=== PATIENT | female | born 1960 | race Caucasian/White ===

== ENCOUNTER 2016-04-14 19:37 | Emergency (ER) | payer BC ==
[~2016-04-14] VITALS: Ht 162.6 cm; Wt 99.8 kg
[2016-04-14] MEDS ORDERED: DICL75TA2 PO (19:53)
[2016-04-14] MEDS ORDERED: ROPI0.25 PO (19:53)
[2016-04-14] MEDS ORDERED: ATOR10TA66 PO (19:53)
[2016-04-14] MEDS ORDERED: TRIA1TAB3 PO (19:53)
[2016-04-14] MEDS ORDERED: AMLO10TA2 PO (19:53)
[2016-04-14] MEDS ORDERED: DULO60CA58 PO (19:53)
[2016-04-14] MEDS ORDERED: METF500T8 PO (19:53)
[2016-04-14] MEDS ORDERED: PREG100C PO (19:53)
[2016-04-14] MEDS ORDERED: TETANUS,DIPTH,PERTUSS P/F (BOOSTRIX) 0.5 ML VIAL IM ONE (20:00)
--- NOTE | 2016-04-14 20:02 | ED Upper Extremity ---
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 She was opening the new blade when she externally cut the distal left pointer finger tip. Tetanus is not up-to-date. This occurred just prior to arrival. Onset: just prior to arrival Severity: moderate Pain/Injury Location: left 2nd finger Method of Injury: unknown Modifying Factors: Worse With Movement Allergies and Home Medications Allergies Coded Allergies: No Known Drug Allergies (Unverified , 06/27/15) Home Medications Amlodipine Besylate 10 Mg Tablet #30 1 TAB PO UD (Reported) Atorvastatin Calcium 10 Mg Tablet #30 1 TAB PO UD (Reported) Diclofenac Sodium 75 Mg Tablet.dr #60 1 TAB PO UD (Reported) Duloxetine HCl 60 Mg Capsule.dr #30 1 CAP PO UD (Reported) Metformin HCl 500 Mg Tab.er.24h #60 1 TAB PO UD (Reported) Pregabalin 100 Mg Capsule #60 1 TAB PO UD (Reported) Ropinirole HCl 0.25 Mg Tablet #60 1 TAB PO UD (Reported) Triamterene/Hydrochlorothiazid 1 Each Tablet #30 1 TAB PO UD (Reported) Constitutional: see HPI EENTM: see HPI Respiratory: no symptoms reported Cardiovascular: no symptoms reported Genitourinary: no symptoms reported Musculoskeletal: see HPI Skin: see HPI Psychiatric/Neurological: No Symptoms Reported Past Hycdcaq-Npngsl-Duvmiy Hx Patient Social History Alcohol Use: Occasionally Uses Recreational Drug Use: No Smoking Status: Never a Smoker Recent Foreign Travel: No Contact w/Someone Who Travel: No Recent Infectious Disease Expo: No Recent Hopitalizations: No Physical Abuse Screen: No Sexual Abuse: No Immunizations Up To Date Tetanus Booster (TDap): Unknown Seasonal Allergies Seasonal Allergies: No Surgeries HX Surgeries: Yes (CARPEL TUNNEL) Respiratory Hx Respiratory Disorders: No Cardiovascular Hx Cardiac Disorders: Yes Cardiac Disorders: High Cholesterol, Hypertension Neurological Hx Neurological Disorders: No 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 System : No Hx 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 Disorders: No Genitourinary Hx Genitourinary Disorders: No Gastrointestinal Hx Gastrointestinal Disorders: No Musculoskeletal Hx Musculoskeletal Disorders: Yes (RESTLESS LEGS) Musculoskeletal Disorders: Fibromyalgia Endocrine Hx Endocrine Disorders: Yes Endocrine Disorders: Diabetes, Non-Insulin dep HEENT HX ENT Disorders: No Cancer Hx Cancer: No Psychosocial Hx Psychiatric Problems: No Integumentary HX Skin/Integumentary Disorder: No Blood Transfusions Hx Blood Disorders: No Physical Exam Vital Signs Vital Sign - Last 12Hours 04/14/16 19:53 Temp 97.1 Pulse 73 Resp 18 B/P 147/70 Pulse Ox 97 O2 Delivery Room Air Capillary Refill : Less Than 3 Seconds General Appearance: WD/WN no apparent distress HEENT: PERRL/EOMI normal ENT inspection Neck: non-tender full range of motion Respiratory: no respiratory distress no accessory muscle use Shoulder: normal inspection non-tender Elbow/Forearm: normal inspection, non-tender, Left Wrist: Yes normal inspection, Yes non-tender Hand: Left, laceration (superficial skin avulsion with active bleeding that is easily controlled to the left fingertip) Neurologic/Psychiatric: alert normal mood/affect oriented x 3 Skin: normal color warm/dry Laceration Repair : Wound Location: Upper Extremities Wound Length (cm): 0.5 Other Closure Supply: Wound Adhesive Progress/Results/Core Measures Results/Orders My Orders Orders-NADIRA SINGH APRN Dipht,Pertuss(Acell),Tet Adult (Boostrix (04/14/16 20:00) Vital Signs/I&O Vital Sign - Last 12Hours 04/14/16 19:53 Temp 97.1 Pulse 73 Resp 18 B/P 147/70 Pulse Ox 97 O2 Delivery Room Air Blood Pressure Mean: 95 Departure Impression Impression: Primary Impression: Skin avulsion Disposition: 01 HOME, SELF-CARE Condition: Stable Departure-Patient Inst. Decision time for Depature: 20:01 Referrals: LINN GRANT DO (PCP/Family) Primary Care Physician Patient Instructions: SKIN AVULSION Add. Discharge Instructions: 1. Keep this clean dry and covered tonight. Strength or you may wash gently. Do not put any lotion or petroleum-based products like Vaseline or Neosporin on this is that will dissolve the glue. Keep it covered with a Band-Aid while at work. The glue will fALL off on its own in 3-5 days. All discharge instructions reviewed with patient and/or family. Voiced understanding. NADIRA SINGH APRN Apr 14, 2016 20:02
[2016-04-14 20:12] VITALS: BP 147/70
== END 2016-04-14 20:12 | disposition home or self-care (01) ==
LOC: EDUNIT# 19:37 → ER 19:38
DX: S61.211A Laceration without foreign body of left index finger without damage to nail, initial encounter (principal); Z23 Encounter for immunization; E11.9 Type 2 diabetes mellitus without complications; I10 Essential (primary) hypertension; Z79.84 Long term (current) use of oral hypoglycemic drugs; Z79.899 Other long term (current) drug therapy; W45.8XXA Other foreign body or object entering through skin, initial encounter; Y92.010 Kitchen of single-family (private) house as the place of occurrence of the external cause; Y99.8 Other external cause status
CPT/HCPCS: 12011; 90471; 90715

== ENCOUNTER 2017-08-10 10:54 | Observation (INO) | payer BC ==
[~2017-08-10] VITALS: Ht 162.6 cm; Wt 100.8 kg
[~2017-08-10 10:54] MED LIST: AMLO10TA2 PO; ATOR10TA66 PO; DICL75TA2 PO; DULO60CA58 PO; METF500T8 PO; PREG100C PO; ROPI0.25 PO; TRIA1TAB3 PO
--- OUTSIDE RECORDS SUMMARY | 2017-08-10 11:01 | XMS REPORT ---
Author Author BASHIR MORILLO Organization [employer] Address Unknown Phone Unavailable Care Team Providers Care Truck Safety Inspector Name Role Phone BASHIR MORILLO CP Unavailable Allergies No Known Allergies Problems Problem Type Condition ICD-9 Code Onset Dates Condition Status Problem Edema 782.3 Active Problem Obesity (BMI 30-39.9) 278.00 Active Problem Hypercholesterolemia 272.0 Active Problem Essential hypertension 401.9 Active Problem Chronic pain disorder 338.4 Active Problem Incontinence in female 625.6 Active Problem Environmental allergies V15.09 Active Problem Depression 311 Active Problem Vitamin D deficiency 268.9 Active Medications No Known Medications Results No Known Results Summary Purpose [employer] Submission
--- OUTSIDE RECORDS SUMMARY | 2017-08-10 11:01 | XMS REPORT ---
Author Author BASHIR MORILLO Organization [employer] Address Unknown Phone Unavailable Care Team Providers Care Knitting Machine Tender Name Role Phone BASHIR MORILLO CP Unavailable [...]
[2017-08-10 11:14] LABS: BASOPHILS % (AUTO) 0 % (0-10); EOSINOPHILS # (AUTO) 0.2 10^3/uL (0.0-0.3); EOSINOPHILS % (AUTO) 2 % (0-10); HEMATOCRIT 40 % (35-52); HEMOGLOBIN 13.4 G/DL (11.5-16.0); LYMPHOCYTES # (AUTO) 2.4 X 10^3 (1.0-4.0); LYMPHOCYTES % (AUTO) 21 % (12-44); MEAN CORPUSCULAR HEMOGLOBIN 30 PG (25-34); MEAN CORPUSCULAR HGB CONC 33 G/DL (32-36); MEAN CORPUSCULAR VOLUME 90 FL (80-99); MEAN PLATELET VOLUME 9.6 FL (7.4-10.4); MONOCYTES # (AUTO) 0.9 X 10^3 (0.0-1.0); MONOCYTES % (AUTO) 8 % (0-12); NEUTROPHILS # (AUTO) 7.7 X 10^3 (1.8-7.8); NEUTROPHILS % (AUTO) 69 % (42-75); PLATELET COUNT 357 10^3/uL (130-400); RED BLOOD COUNT 4.45 10^6/uL (4.35-5.85); RED CELL DISTRIBUTION WIDTH 14.9 % (10.0-14.5); WHITE BLOOD COUNT 11.1 10^3/uL (4.3-11.0)
[2017-08-10] MEDS ORDERED: ASPIRIN 81 MG CHEW (CHILDREN'S ASA) PO ONE (11:15)
[2017-08-10] MEDS ORDERED: NITROGLYCERIN 0.4 MG SL TABS BTL 25'S SL PRN (11:15)
[2017-08-10 11:22] LABS: INR 0.9 (0.8-1.4); PROTHROMBIN TIME PATIENT 12.2 SEC (12.2-14.7)
[2017-08-10 11:30] LABS: ALANINE AMINOTRANSFERASE 28 U/L (0-55); ALBUMIN 4.5 GM/DL (3.2-4.5); ALKALINE PHOSPHATASE 78 U/L (40-136); BILIRUBIN,TOTAL 0.4 MG/DL (0.1-1.0); BUN/CREATININE RATIO 23; CALCIUM 9.6 MG/DL (8.5-10.1); CARBON DIOXIDE 25 MMOL/L (21-32); CHLORIDE 104 MMOL/L (98-107); CREATININE SERUM 0.95 MG/DL (0.60-1.30); GFR ESTIMATED > 60; GLUCOSE 85 MG/DL (70-105); MAGNESIUM 2.4 MG/DL (1.8-2.4); POTASSIUM 3.7 MMOL/L (3.6-5.0); SODIUM 139 MMOL/L (135-145); TOTAL PROTEIN 7.3 GM/DL (6.4-8.2)
--- NOTE | 2017-08-10 11:35 | Diagnostic Imaging Report ---
EXAM: Portable erect AP chest at 11:27 a.m. INDICATION: Chest tightness COMPARISON: There are no prior studies available for comparison. FINDINGS: The heart size is at the upper limits of normal. The lungs are clear. There is no sign of failure, pneumonia or of pleural effusion. The mediastinum is not widened. The osseous structures are intact. IMPRESSION: There is no evidence for active disease. Dictated by: Dictated on workstation # [id number]
[2017-08-10 11:37] LABS: MYOGLOBIN SERUM 37.8 NG/ML (10.0-92.0)
--- NOTE | 2017-08-10 11:39 | ED Chest Pain ---
General Chief Complaint: Chest Pain Stated Complaint: TIGHTNESS IN CHEST,TINGLING IN ARMS Nursing Triage Note: patient reports intermittent chest pain for a few weeks Nursing Sepsis Screen: No Definite Risk Source: patient Exam Limitations: no limitations History of Present Illness Date Seen by Provider: August 10, 2017 Time Seen by Provider: 11:00 Initial Comments This 56-year-old woman presents to the emergency room with complaints of chest tightness and a left arm tingling intermittently for a few weeks. She rates her chest tightness as 10/10 in the central chest at this time. Patient denies any exacerbating or alleviating factors. She denies any known history of heart disease. She had a treadmill stress test greater than 3 years ago and it was reportedly negative. Associated symptoms include mild shortness of breath, nausea and dizziness. She denies diaphoresis. Patient does have numerous risk factors for heart disease including hypertension, hyperlipidemia, diabetes, and sleep apnea. Her primary care provider is Dr. Sloan. Allergies and Home Medications Allergies Coded Allergies: No Known Drug Allergies (Unverified , 06/27/15) Home Medications Amlodipine Besylate 10 Mg Tablet, 1 TAB PO UD, (Reported) Atorvastatin Calcium 10 Mg Tablet, 1 TAB PO UD, (Reported) Duloxetine HCl 60 Mg Capsule.dr, 1 CAP PO UD, (Reported) Metformin HCl 500 Mg Tab.er.24h, 1 TAB PO UD, (Reported) Pregabalin 100 Mg Capsule, 1 TAB PO UD, (Reported) Ropinirole HCl 0.25 Mg Tablet, 1 TAB PO UD, (Reported) Patient Home Medication List Home Medication List Reviewed: Yes Review of Systems Constitutional: no symptoms reported EENTM: No Symptoms Reported Respiratory: See HPI Cardiovascular: See HPI Gastrointestinal: See HPI Genitourinary: No Symptoms Reported Musculoskeletal: no symptoms reported Skin: no symptoms reported Psychiatric/Neurological: See HPI Endocrine: No Symptoms Reported Hematologic/Lymphatic: No Symptoms Reported Past Mcnrxqv-Jkuhsq-Oodxdb Hx Patient Social History Alcohol Use: Occasionally Uses Number of Drinks Today: AA Alcohol Beverage of Choice: Beer Recreational Drug Use: No Smoking Status: Never a Smoker Recent Foreign Travel: No Contact w/Someone Who Travel: No Recent Infectious Disease Expo: No Recent Hopitalizations: No Physical Abuse: No Sexual Abuse: No Immunizations Up To Date Tetanus Booster (TDap): Unknown Seasonal Allergies Seasonal Allergies: No Past Medical History Surgeries: Yes Orthopedic (carpal tunnel) Respiratory: Yes Sleep Apnea Currently Using CPAP: Yes Cardiac: Yes High Cholesterol, Hypertension Neurological: No : No 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 Disorders: No 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 Genitourinary: No Gastrointestinal: No Musculoskeletal: Yes Fibromyalgia Endocrine: Yes Diabetes, Non-Insulin dep HEENT: No Cancer: No Psychosocial: No Nursing Suicide Risk Score: 0 Integumentary: No Physical Exam Vital Signs Vital Signs - First Documented 08/10/17 11:05 O2 Delivery Room Air Capillary Refill : Less Than 3 Seconds General Appearance: No Apparent Distress, WD/WN, Obese HEENT: PERRL/EOMI, Normal ENT Inspection Neck: Normal Inspection Respiratory: Chest Non Tender, Lungs Clear, Normal Breath Sounds, No Accessory Muscle Use, No Respiratory Distress Cardiovascular: Regular Rate, Rhythm, No Edema, No Murmur Gastrointestinal: Normal Bowel Sounds, Soft, Tenderness (epigastrium) Extremity: Normal Inspection, Non Tender, No Calf Tenderness, No Pedal Edema, Other (negative Berto) Neurologic/Psychiatric: Alert, Oriented x3, No Motor/Sensory Deficits, family service assistant II- XII Norm as Tested, Other (appears anxious) Skin: Normal Color, Warm/Dry Progress/Results/Core Measures Results/Orders Lab Results Laboratory Tests Test 08/10/17 11:05 Range/Units White Blood Count 11.1 H 4.3-11.0 10^3/uL Red Blood Count 4.45 4.35-5.85 10^6/uL Hemoglobin 13.4 11.5-16.0 G/DL Hematocrit 40 35-52 % Mean Corpuscular Volume 90 80-99 FL Mean Corpuscular Hemoglobin 30 25-34 PG Mean Corpuscular Hemoglobin Concent 33 32-36 G/DL Red Cell Distribution Width 14.9 H 10.0-14.5 % Platelet Count 357 130-400 10^3/uL Mean Platelet Volume 9.6 7.4-10.4 FL Neutrophils (%) (Auto) 69 42-75 % Lymphocytes (%) (Auto) 21 12-44 % Monocytes (%) (Auto) 8 0-12 % Eosinophils (%) (Auto) 2 0-10 % Basophils (%) (Auto) 0 0-10 % Neutrophils # (Auto) 7.7 1.8-7.8 X 10^3 Lymphocytes # (Auto) 2.4 1.0-4.0 X 10^3 Monocytes # (Auto) 0.9 0.0-1.0 X 10^3 Eosinophils # (Auto) 0.2 0.0-0.3 10^3/uL Basophils # (Auto) 0.0 0.0-0.1 10^3/uL Prothrombin Time 12.2 12.2-14.7 SEC INR Comment 0.9 0.8-1.4 Activated Partial Thromboplast Time 27 24-35 SEC Sodium Level 139 135-145 MMOL/L Potassium Level 3.7 3.6-5.0 MMOL/L Chloride Level 104 98-107 MMOL/L Carbon Dioxide Level 25 21-32 MMOL/L Anion Gap 10 5-14 MMOL/L Blood Urea Nitrogen 22 H 7-18 MG/DL Creatinine 0.95 0.60-1.30 MG/DL Estimat Glomerular Filtration Rate > 60 BUN/Creatinine Ratio 23 Glucose Level 85 70-105 MG/DL Calcium Level 9.6 8.5-10.1 MG/DL Magnesium Level 2.4 1.8-2.4 MG/DL Total Bilirubin 0.4 0.1-1.0 MG/DL Aspartate Amino Transf (AST/SGOT) 16 5-34 U/L Alanine Aminotransferase (ALT/SGPT) 28 0-55 U/L Alkaline Phosphatase 78 40-136 U/L Myoglobin 37.8 10.0-92.0 NG/ML Troponin I < 0.30 <0.30 NG/ML Total Protein 7.3 6.4-8.2 GM/DL Albumin 4.5 3.2-4.5 GM/DL Lipase 29 8-78 U/L My Orders Orders - ABBE SEARS MD Cbc With Automated Diff (08/10/17 11:08) Magnesium (08/10/17 11:08) Chest 1 View, Ap/Pa Only (08/10/17 11:08) Ekg Tracing (08/10/17 11:08) Cardiac Profile 1 (08/10/17 11:08) Comprehensive Metabolic Panel (08/10/17 11:08) Myoglobin Serum (08/10/17 11:08) Protime With Inr (08/10/17 11:08) Partial Thromboplastin Time (08/10/17 11:08) O2 (08/10/17 11:08) Monitor-Rhythm Ecg Trace Only (08/10/17 11:08) Lipid Panel (08/11/17 06:00) Aspirin Chewable Tablet (Baby Aspirin Ch (08/10/17 11:15) Nitroglycerin 0.4 Mg Btl 25's (Nitrostat (08/10/17 11:15) Saline Lock/Iv-Start (08/10/17 11:08) Lipase (08/10/17 11:08) Lidocaine 2% Viscous 15 Ml (Xylocaine Vi (08/10/17 11:45) Antacid Suspension (Mylanta Suspension (08/10/17 11:45) Medications Given in ED Current Medications Medications Dose Ordered Sig/Isa Route Start Time Stop Time Status Last Admin Dose Admin Al Hydrox/Mg Hydrox/Simethicone 30 ml ONCE ONCE PO 08/10/17 11:45 08/10/17 11:46 DC 08/10/17 12:04 30 ML Aspirin 324 mg ONCE ONCE PO 08/10/17 11:15 08/10/17 11:16 DC 08/10/17 11:29 324 MG Lidocaine HCl 15 ml ONCE ONCE PO 08/10/17 11:45 08/10/17 11:46 DC 08/10/17 12:04 15 ML Nitroglycerin 0.4 mg UD PRN SL 08/10/17 11:15 08/10/17 11:30 0.4 MG Vital Signs/I&O 08/10/17 08/10/17 08/10/17 11:05 11:17 11:17 Temp 98.2 Pulse 72 Resp 18 B/P (MAP) 154/98 (116) Pulse Ox 98 O2 Delivery Room Air Room Air Blood Pressure Mean: 116 Progress Progress Note #1: Time: 11:53 Progress Note Nitroglycerin and aspirin were administered. Nitroglycerin improved her pain from 9/10-7/10. Blood pressure dropped to 115 systolic. Because of the epigastric tenderness, GI cocktail will be administered before attempting nitroglycerin again. Progress Note #2: Time: 12:40 Progress Note No further nitroglycerin was administered due to the significant drop in blood pressure first dose of nitroglycerin. GI cocktail seemed to reduce pain even further and patient now rates her pain as 3/10. Progress Note #3: Time: 13:26 Progress Note Case was reviewed with Dr. Garcia and Dr. Manriquez. Admission is advised for cardiac rule out. At this time patient states she is pain-free. Initial ECG Impression Date: August 10, 2017 Initial ECG Impression Time: 11:00 Initial ECG Rate: 75 Initial ECG Rhythm: Normal Sinus Initial ECG Intervals: Normal Initial ECG Impression: Normal Comment Normal sinus rhythm with no ST elevation or depression. No abnormal intervals or axis deviation. Diagnostic Imaging Diagonstic Imaging: Xray Plain Films/CT/US/NM/MRI: chest Comments Chest x-ray viewed by me and report reviewed. See report below: NAME: ALBAN ARELLANO [facility] REC#: [id number] PT STATUS: REG ER : 1960 PHYSICIAN: ABBE SEARS MD ADMIT DATE: 08/10/17/ER Draft Date of Exam:08/10/17 CHEST 1 VIEW, AP/PA ONLY EXAM: Portable erect AP chest at 11:27 a.m. INDICATION: Chest tightness COMPARISON: There are no prior studies available for comparison. FINDINGS: The heart size is at the upper limits of normal. The lungs are clear. There is no sign of failure, pneumonia or of pleural effusion. The mediastinum is not widened. The osseous structures are intact. IMPRESSION: There is no evidence for active disease. Dictated on workstation # [id number] Dict: 08/10/17 1132 Trans: 08/10/17 1134 [facility] [id number] Interpreted by: TIFFANIE CHAPA MD Departure Communication (Admissions) Time/Spoke to Consulting Phy: 12:50 Dr. Garcia Impression Primary Impression: Chest pain Qualified Codes: R07.9 - Chest pain, unspecified Additional Impression: Epigastric abdominal tenderness Qualified Codes: R10.816 - Epigastric abdominal tenderness Disposition: ADMITTED INPATIENT Condition: Improved Admissions Decision to Admit Reason: Admit from ER (General) Decision to Admit/Date: August 10, 2017 Time/Decision to Admit Time: 12:50 Departure-Patient Inst. Referrals: LINN SLOAN DO (PCP/Family) Primary Care Physician ABBE SEARS MD August 10, 2017 11:39
[2017-08-10] MEDS ORDERED: ANTACID SUSP 30 ML UDC (MYLANTA) PO ONE (11:45)
[2017-08-10] MEDS ORDERED: LIDOCAINE 2% VISCOUS 15 ML UDC PO ONE (11:45)
[2017-08-10] MEDS ORDERED: VALS1TAB78 PO (12:28)
[2017-08-10] MEDS ORDERED: HYDR12.56 (12:28)
[2017-08-10] MEDS ORDERED: CYCL10TA9 (12:28)
[2017-08-10 13:40] VITALS: BP 160/72
[2017-08-10] MEDS ORDERED: morphine INJ 4 MG/ML 1 ML (VIAL/SYRINGE) IVP PRN (14:00)
[2017-08-10] MEDS ORDERED: ACETAMINOPHEN 500 MG TAB (TYLENOL) PO PRN (14:00)
[2017-08-10] MEDS ORDERED: CATHETER FLUSH 10 ML SYR IV PRN (14:00)
[2017-08-10] MEDS ORDERED: ONDANSETRON 4 MG/2 ML (SDV) Z0FRAN IVP PRN (14:00)
[2017-08-10] MEDS ORDERED: PATIENT MAY USE OWN MEDS, ALL PO SCH (14:30)
--- NOTE | 2017-08-10 14:57 | Consultation-Cardiology ---
HPI-Cardiology Cardiology Consultation: Date of Consultation 08/10/17 Time Seen by Provider: 14:20 Date of Admission Attending Physician Neyda Sloan DO Admitting Physician Neyda Sloan DO Consulting Physician CHRISTINA KUHN MD, MA, FACP, FACC, FSCAI, CCDS HPI: Chief Complaint: Chest discomfort 56 yo woman with chest discomfort: onset two weeks ago, continuous, waxes and wanes but does not resolve, mild to severe, feeling of burning and discomfort that she is not able to describe, associated with dizziness, some episodes of diarrhea and gen poor appetite, no radiation of discomfort, no aggravating or relieving factors Has chronic exertional shortness of breath that has not changed in the recent past No palp or syncope Chronic mild leg swelling that progresses with the day and resolves over night. This occurs only intermittently and infrequently Has some gen malaise, but denies fever or chills No recent wgt gain or wgt loss Review of Systems-Cardiology Review of Systems Constitutional: As described under HPI Eyes: No vision change Ears/Nose/Throat: No ear discharge, No nasal drainage, No recent hearing loss Respiratory: As described under HPI Cardiovascular: As described under HPI Gastrointestinal: As described under HPI Genitourinary: No dysuria, No hematuria, No urine frequency changes Musculoskeletal: back pain (chronic) Psychiatric/Neurological: No seizure, No focal weakness, No syncope Hematologic: No bleeding abnormalities XSD-Zmadlr-Jagntm Hx Patient Social History Alcohol Use: Occasionally Uses Recreational Drug Use: No Smoking Status: Never a Smoker Recent Foreign Travel: No Recent Infectious Disease Expo: No Hospitalization with Isolation: Denies Physical Abuse Screen: No Sexual Abuse: No Immunizations Up To Date Tetanus Booster (TDap): Unknown Past Medical History PMH As described under Assessment. Family Medical History Family History: Cardiovascular disease paternal grandfather maternal grandfather (chf) Diabetes mellitus paternal grandfather Myocardial infarction 19 FATHER Respiratory disorder 19 MOTHER (copd) Allergies and Home Medications Allergies Coded Allergies: No Known Drug Allergies (Unverified , 06/27/15) Home Medications Amlodipine Besylate 10 Mg Tablet, 1 TAB PO UD, (Reported) Atorvastatin Calcium 10 Mg Tablet, 1 TAB PO UD, (Reported) Duloxetine HCl 60 Mg Capsule.dr, 1 CAP PO UD, (Reported) Metformin HCl 500 Mg Tab.er.24h, 1 TAB PO UD, (Reported) Pregabalin 100 Mg Capsule, 1 TAB PO UD, (Reported) Ropinirole HCl 0.25 Mg Tablet, 1 TAB PO UD, (Reported) Patient Home Medication List Home Medication List Reviewed: Yes Physical Exam-Cardiology Physical Exam Vital Signs/I&O 08/10/17 08/10/17 08/10/17 08/10/17 11:05 11:17 11:17 13:36 Temp 98.2 98.4 Pulse 72 71 Resp 18 12 B/P (MAP) 154/98 (116) 149/83 Pulse Ox 98 98 O2 Delivery Room Air Room Air Capillary Refill : Less Than 3 Seconds Constitutional: AAO x 3, well-developed, well-nourished, other (obese) HEENT: EOMI, hearing is well preserved; No xanthelasmas are seen Neck: No carotid bruit; carotid pulses are 2 + bilaterally, with good upstrokes Respiratory: No accessory muscle use; lungs clear to percussion, lungs clear to auscultation Cardiovascular: No regular rate-rhythm; S1 and S2, systolic murmur (faint OSCAR at card base) Gastrointestinal: No tender; soft; No guarding, No rebound; audible bowel sounds Extremities: No clubbing, No cyanosis, No significant edema Neurologic/Psychiatric: oriented x 3, grossly intact, power is 5/5 both on sides Skin: No rash on exposed areas, No ulcerations on exposed areas Data Review Labs Laboratory Tests 08/10/17 11:05: White Blood Count 11.1H, Red Blood Count 4.45, Hemoglobin 13.4, Hematocrit 40, Mean Corpuscular Volume 90, Mean Corpuscular Hemoglobin 30, Mean Corpuscular Hemoglobin Concent 33, Red Cell Distribution Width 14.9H, Platelet Count 357, Mean Platelet Volume 9.6, Neutrophils (%) (Auto) 69, Lymphocytes (%) (Auto) 21, Monocytes (%) (Auto) 8, Eosinophils (%) (Auto) 2, Basophils (%) (Auto) 0, Neutrophils # (Auto) 7.7, Lymphocytes # (Auto) 2.4, Monocytes # (Auto) 0.9, Eosinophils # (Auto) 0.2, Basophils # (Auto) 0.0, Prothrombin Time 12.2, INR Comment 0.9, Activated Partial Thromboplast Time 27, Sodium Level 139, Potassium Level 3.7, Chloride Level 104, Carbon Dioxide Level 25, Anion Gap 10, Blood Urea Nitrogen 22H, Creatinine 0.95, Estimat Glomerular Filtration Rate > 60, BUN/Creatinine Ratio 23, Glucose Level 85, Calcium Level 9.6, Magnesium Level 2.4, Total Bilirubin 0.4, Aspartate Amino Transf (AST/SGOT) 16, Alanine Aminotransferase (ALT/SGPT) 28, Alkaline Phosphatase 78, Myoglobin 37.8, Troponin I < 0.30, Total Protein 7.3, Albumin 4.5, Lipase 29 Laboratory Tests 08/10/17 11:05 ECG Impression ECG Comment ECG on 08/09/17 (during symptoms): NSR, WNL A/P-Cardiology Assessment/Admission Diagnosis Chest discomfort without evidence of ACS. Consider cholelithiasis/cholecystitis Obesity with BMI approx 38 Obesity-hypovent and JAM treated with CPAP Hypertension Hyperlipidemia DM II Quit tobacco use in 1995 Fibromyalgia Lumbago due to degen disc disease (by history) Chronic GERD, treated with PPI Discussion and Recomendations * No evidence of ACS, but has risk factors * Serial card enz and ECG * Echo * Eval for cholelithiasis and other noncard sources of chest discomfort * Monitor labs * Keep on tele * Further recs based on hosp course Clinical Quality Measures AMI/AHF: ASA po Prior to arrival: CHRISTINA Sanchez MD FACP FAC CCDS August 10, 2017 14:57
[2017-08-10] MEDS: FAMOTIDINE 20 MG (PEPCID) TABLET PO SCH ×2 (15:01→21:43)
[2017-08-10] MEDS: CATHETER FLUSH 10 ML SYR IV SCH ×2 (15:01→21:43)
[2017-08-10 15:48] VITALS: BP 127/61
[2017-08-10] MEDS ORDERED: CETI10CA PO (18:11)
[2017-08-10] MEDS ORDERED: CHOL10007 PO (18:11)
[2017-08-10 20:14] VITALS: BP 119/55
[2017-08-10 21:45] VITALS: BP 122/61
[2017-08-10] MEDS ORDERED: HYDROcodone/APAP 5 MG/325 MG (LORTAB) TAB PO PRN (22:15)
[2017-08-10] MEDS ORDERED: ALPRAZolam 0.25 MG (XANAX) TAB PO PRN (22:15)
[2017-08-11 00:47] VITALS: BP 114/54
[2017-08-11 03:51] VITALS: BP 136/75
[2017-08-11] MEDS: CATHETER FLUSH 10 ML SYR IV SCH (06:05)
[2017-08-11 07:05] LABS: BASOPHILS % (AUTO) 1 % (0-10); EOSINOPHILS # (AUTO) 0.2 10^3/uL (0.0-0.3); EOSINOPHILS % (AUTO) 3 % (0-10); HEMATOCRIT 40 % (35-52); HEMOGLOBIN 13.2 G/DL (11.5-16.0); LYMPHOCYTES # (AUTO) 2.2 X 10^3 (1.0-4.0); LYMPHOCYTES % (AUTO) 31 % (12-44); MEAN CORPUSCULAR HEMOGLOBIN 30 PG (25-34); MEAN CORPUSCULAR HGB CONC 33 G/DL (32-36); MEAN CORPUSCULAR VOLUME 91 FL (80-99); MEAN PLATELET VOLUME 10.2 FL (7.4-10.4); MONOCYTES # (AUTO) 0.6 X 10^3 (0.0-1.0); MONOCYTES % (AUTO) 9 % (0-12); NEUTROPHILS # (AUTO) 4.1 X 10^3 (1.8-7.8); NEUTROPHILS % (AUTO) 57 % (42-75); PLATELET COUNT 305 10^3/uL (130-400); RED CELL DISTRIBUTION WIDTH 14.6 % (10.0-14.5); WHITE BLOOD COUNT 7.2 10^3/uL (4.3-11.0)
[2017-08-11 07:32] LABS: ALANINE AMINOTRANSFERASE 25 U/L (0-55); ALKALINE PHOSPHATASE 74 U/L (40-136); BILIRUBIN,TOTAL 0.4 MG/DL (0.1-1.0); BUN/CREATININE RATIO 22; CALCIUM 9.4 MG/DL (8.5-10.1); CARBON DIOXIDE 27 MMOL/L (21-32); CHLORIDE 105 MMOL/L (98-107); CHOLESTEROL 170 MG/DL (< 200); CREATININE SERUM 0.89 MG/DL (0.60-1.30); GFR ESTIMATED > 60; GLUCOSE 97 MG/DL (70-105); HDL CHOLESTEROL 74 MG/DL (40-60); MAGNESIUM 2.4 MG/DL (1.8-2.4); POTASSIUM 4.1 MMOL/L (3.6-5.0); SODIUM 141 MMOL/L (135-145); TRIGLYCERIDES 97 MG/DL (<150); VLDL CHOLESTEROL 19 MG/DL (5-40)
[2017-08-11 07:49] VITALS: BP 128/63
[2017-08-11] MEDS: FAMOTIDINE 20 MG (PEPCID) TABLET PO SCH (08:02)
[2017-08-11] MEDS ORDERED: VALSARTAN 160 MG (DIOVAN) TABLET PO SCH (09:00)
[2017-08-11] MEDS ORDERED: rOPINIRole 0.25 MG (REQUIP) TAB PO SCH (09:00)
[2017-08-11] MEDS ORDERED: DULoxetine 30 MG (CYMBALTA) CAP PO SCH (09:00)
[2017-08-11] MEDS ORDERED: ATORVASTATIN 10 MG (LIPITOR) TABLET PO SCH (09:00)
[2017-08-11] MEDS ORDERED: LORATADINE (CLARITIN) 10 MG TAB PO SCH (09:00)
[2017-08-11] MEDS ORDERED: VITAMIN D3 1,000 UNITS (CHOLECALCIFEROL) TABLET PO SCH (09:00)
[2017-08-11] MEDS ORDERED: HYDROCHLOROTHIAZIDE 12.5 MG (HCTZ) CAP PO SCH (09:00)
[2017-08-11] MEDS ORDERED: ASPIRIN E.C. 81 MG (ECOTRIN) TAB PO SCH (09:00)
[2017-08-11 11:32] VITALS: BP 119/69
--- NOTE | 2017-08-11 12:22 | Short Stay Summary-Hospitalist ---
History of Present Illness HPI/Chief Complaint CC: Chest pain HPI: This is a 56-year-old white female clinic patient of Dr. Sloan with the past medical history of hypertension, diabetes, and obstructive sleep apnea that presents to the ER with complaints of chest pain with left arm involvement with numbness. She reports this started about 2 weeks ago but worsened to the point that concerned her enough to come to the ER was found to have risk factors for ischemic heart disease so she was placed in observation cardiology was consulted and patient was fully evaluated and revealed troponin 3 negative for ischemia. Cardiology did update me on this fact and needed an evaluation for gallbladder disease as the cause of chest pain. At this current time she denies any chest pain currently when I examined her and overall having good results with pain medication that was given on a periodic basis since admission. I did speak with Dr. Martinez and he will see her in consultation and I did order an abdominal ultrasound that she will likely be able to go home as long as there is no evidence of any dangerous gallbladder issue on ultrasound. Source: patient, RN/MD Exam Limitations: no limitations Date Seen 08/11/17 Time Seen by Provider: 10:40 Attending Physician Neyda Sloan DO PCP Neyda Sloan DO Referring Physician Date of Admission August 10, 2017 at 13:18 Home Medications & Allergies Home Medications Reviewed patient Home Medication Reconciliation performed by pharmacy medication reconciliations large animal husbandry technician and/or nursing. Patients Allergies have been reviewed. Allergies Allergies Coded Allergies No Known Drug Allergies (Unverified06/27/15) Past Cczktra-Istsnu-Pzyfji Hx Past Med/Social Hx: Reviewed Nursing Past Med/Soc Hx, Reviewed and Corrections made Patient Social History Employed/Student: employed ([employer] 4 years) Alcohol Use: Occasionally Uses Number of Drinks Today: 0 Alcohol Beverage of Choice: Rum Recreational Drug Use: No Smoking Status: Former Smoker Former Smoker, Quit: Mar 17, 1996 Type Used: Cigarettes Physical Abuse Screen: No Sexual Abuse: No Recent Foreign Travel: No Contact w/other who traveled: No Recent Hopitalizations: No Recent Infectious Disease Expo: No Immunizations Up To Date Tetanus Booster (TDap): Unknown Date of Pneumonia Vaccine: Nov 16, 2016 Seasonal Allergies Seasonal Allergies: No Past Medical History Surgeries: Orthopedic (carpal tunnel) Respiratory: Sleep Apnea Currently Using CPAP: Yes Cardiac: High Cholesterol, Hypertension : No 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: No Menopausal Musculoskeletal: Fibromyalgia Endocrine: Diabetes, Non-Insulin dep History of Blood Disorders: No Family History Cardiovascular disease paternal grandfather maternal grandfather (chf) Diabetes mellitus paternal grandfather Myocardial infarction 19 FATHER Respiratory disorder 19 MOTHER (copd) Diabetes Review of Systems Constitutional: see HPI, dizziness EENTM: no symptoms reported Respiratory: short of breath Cardiovascular: chest pain Gastrointestinal: loss of appetite, nausea Genitourinary: no symptoms reported Musculoskeletal: no symptoms reported Skin: no symptoms reported Psychiatric/Neurological: No Symptoms Reported All Other Systems Reviewed Negative Unless Noted: Yes Physical Exam Physical Exam Vital Signs Vital Signs - First Documented 08/10/17 11:05 O2 Delivery Room Air Capillary Refill : Less Than 3 Seconds General Appearance: No Apparent Distress, WD/WN, Chronically ill, Obese Eyes: Bilateral Eye Normal Inspection, Bilateral Eye PERRL HEENT: PERRL/EOMI, Normal ENT Inspection, Pharynx Normal Neck: Full Range of Motion, Normal Inspection, Non Tender, Supple, Carotid Bruit Respiratory: Chest Non Tender, Lungs Clear, Normal Breath Sounds, No Accessory Muscle Use, No Respiratory Distress Cardiovascular: Regular Rate, Rhythm, No Edema, No Gallop, No JVD, No Murmur, Normal Peripheral Pulses Gastrointestinal: Normal Bowel Sounds, No Organomegaly, No Pulsatile Mass, Non Tender, Soft Back: Normal Inspection, No CVA Tenderness, No Vertebral Tenderness Extremity: Normal Capillary Refill, Normal Inspection, Normal Range of Motion, Non Tender, No Calf Tenderness, No Pedal Edema Neurologic/Psychiatric: Alert, Oriented x3, No Motor/Sensory Deficits, Depressed Affect Skin: Normal Color, Warm/Dry Lymphatic: No Adenopathy Results Results/Procedures Labs Laboratory Tests 08/10/17 11:05 08/11/17 05:50 Patient resulted labs reviewed. Short Stay Diagnosis Discharge Diagnosis-Short Stay Admission Diagnosis Assessment: Chest pain with negative ischemic workup Possible gallbladder disease causing the chest pain Diabetes mellitus Hypertension Hyperlipidemia Obstructive sleep apnea Obesity Final Discharge Diagnosis Assessment: Chest pain with negative ischemic workup Possible gallbladder disease causing the chest pain Diabetes mellitus Hypertension Hyperlipidemia Obstructive sleep apnea Obesity Conclusion Plan Plan: I appreciate cardiology consultation for risk stratification I appreciate Dr. Juan Wagner surgery evaluation and review of abdominal ultrasound that I ordered Monitor closely until dangerous gallbladder issues ruled out then may go home Clinical Quality Measures AMI/AHF: ASA po Prior to arrival: No DVT/VTE Risk/Contraindication: Risk Factor Score Per Nursin RFS Level Per Nursing on Admit: 2=Moderate LEANDRO GOMEZ DO August 11, 2017 12:22
--- NOTE | 2017-08-11 13:12 | Progress Note-Cardiology ---
Cardiology SOAP Progress Note Subjective: Feels much better No cp or palp or syncope No malaise or chills Objective: I&O/Vital Signs 08/11/17 08/11/17 08/11/17 08/11/17 03:51 07:00 07:49 11:32 Temp 97.7 98.1 98.7 Pulse 61 70 67 63 Resp 16 20 18 B/P (MAP) 136/75 (95) 128/63 (84) 119/69 (86) Pulse Ox 97 96 93 O2 Delivery Room Air Room Air Room Air 08/11/17 00:00 Intake Total 660 ml Output Total 700 ml Balance -40 ml Weight (Pounds): 222 Weight (Ounces): 3.0 Weight (Calculated Kilograms): 100.294126 Constitutional: AAO x 3, well-developed, well-nourished, other (obese) Respiratory: No accessory muscle use; lungs clear to percussion, lungs clear to auscultation Cardiovascular: No regular rate-rhythm; S1 and S2, systolic murmur (faint OSCAR at card base) Gastrointestional: No tender; soft; No guarding, No rebound; audible bowel sounds Extremities: No clubbing, No cyanosis, No significant edema Neurologic/Psychiatric: oriented x 3, grossly intact, power is 5/5 both on sides Skin: No rash on exposed areas, No ulcerations on exposed areas Results/Procedures: Labs Laboratory Tests 08/10/17 20:31: Troponin I < 0.30 08/11/17 05:50: White Blood Count 7.2, Red Blood Count 4.40, Hemoglobin 13.2, Hematocrit 40, Mean Corpuscular Volume 91, Mean Corpuscular Hemoglobin 30, Mean Corpuscular Hemoglobin Concent 33, Red Cell Distribution Width 14.6H, Platelet Count 305, Mean Platelet Volume 10.2, Neutrophils (%) (Auto) 57, Lymphocytes (%) (Auto) 31 , Monocytes (%) (Auto) 9, Eosinophils (%) (Auto) 3, Basophils (%) (Auto) 1, Neutrophils # (Auto) 4.1, Lymphocytes # (Auto) 2.2, Monocytes # (Auto) 0.6, Eosinophils # (Auto) 0.2, Basophils # (Auto) 0.0, Sodium Level 141, Potassium Level 4.1, Chloride Level 105, Carbon Dioxide Level 27, Anion Gap 9, Blood Urea Nitrogen 20H, Creatinine 0.89, Estimat Glomerular Filtration Rate > 60, BUN/ Creatinine Ratio 22, Glucose Level 97, Calcium Level 9.4, Magnesium Level 2.4, Total Bilirubin 0.4, Aspartate Amino Transf (AST/SGOT) 12, Alanine Aminotransferase (ALT/SGPT) 25, Alkaline Phosphatase 74, Total Protein 7.0, Albumin 4.0, Triglycerides Level 97, Cholesterol Level 170, LDL Cholesterol Direct 70, VLDL Cholesterol 19, HDL Cholesterol 74H, Thyroid Stimulating Hormone (TSH) 2.24 Laboratory Tests 08/10/17 11:05 08/11/17 05:50 A/P: Assessment: Chest discomfort without evidence of ACS. Consider cholelithiasis/cholecystitis Echo 08/11/17: LVEF 65-70% w/o evidence of any significant valvular heart disease and with normal wall motion; PASP could not be reliably estimated on this study Obesity with BMI approx 38 Obesity-hypovent and JAM treated with CPAP Hypertension Hyperlipidemia DM II Quit tobacco use in 1995 Fibromyalgia Lumbago due to degen disc disease (by history) Chronic GERD, treated with PPI Plan: * No evidence of ACS * Risk factor modification reviewed and advise * I discussed her case with Dr Manriquez on the phone and advised eval for cholelithiasis and other noncard sources of chest discomfort * Outpt card r/u advised Clinical Quality Measures AMI/AHF: ASA po Prior to arrival: CHRISTINA Sanchez MD FACP FAC CCDS August 11, 2017 13:12
--- NOTE | 2017-08-11 13:20 | Consultation ---
History of Present Illness History of Present Illness Patient Consulted On(keeley/time) 08/11/17 13:14 Time Seen by Provider: 12:42 History of Present Illness Surgery asked to consult regarding possible Cholecystitis. HPI per Medicine: Pt is a 56 yo woman who presented with chest discomfort: onset two weeks ago, continuous, waxes and wanes but does not resolve, mild to severe, feeling of burning and discomfort that she is not able to describe, associated with dizziness, some episodes of diarrhea and gen poor appetite, no radiation of discomfort, no aggravating or relieving factors. Has chronic exertional shortness of breath that has not changed in the recent past. No palp or syncope. Chronic mild leg swelling that progresses with the day and resolves over night. This occurs only intermittently and infrequently. Has some gen malaise, but denies fever or chills No recent wgt gain or wgt loss When I saw pt today she is not sure if the pain is associated with food or anything else, she thinks she may have had some RUQ pain in the past...but minimal. No radiation of the pain to her shoulder. She states she had a sister in law "with almost exact same symptoms and she had to have her gallbladder out." Allergies and Home Medications Allergies Coded Allergies: No Known Drug Allergies (Unverified , 06/27/15) Home Medications Amlodipine Besylate 10 Mg Tablet, 1 TAB PO HS, (Reported) Atorvastatin Calcium 10 Mg Tablet, 1 TAB PO DAILY, (Reported) Cetirizine HCl 10 Mg Capsule, 10 MG PO DAILY, (Reported) Cholecalciferol (Vitamin D3) 1,000 Unit Capsule, 1,000 UNIT PO DAILY, (Reported) Duloxetine HCl 60 Mg Capsule.dr, 1 CAP PO DAILY, (Reported) Metformin HCl 500 Mg Tab.er.24h, 1 TAB PO BIDAC, (Reported) Ropinirole HCl 0.25 Mg Tablet, 1 TAB PO BID, (Reported) Valsartan/Hydrochlorothiazide 1 Each Tablet, 1 TAB PO DAILY, (Reported) Patient Home Medication List Home Medication List Reviewed: Yes Past Assqtno-Hbxdkz-Oeayip Hx Patient Social History Alcohol Use: Occasionally Uses Number of Drinks Today: 0 Recreational Drug Use: No Smoking Status: Former Smoker Former Smoker, Quit: Mar 17, 1996 Type Used: Cigarettes Recent Foreign Travel: No Contact w/Someone Who Travel: No Recent Infectious Disease Expo: No Recent Hopitalizations: No Physical Abuse Screen: No Sexual Abuse: No Immunizations Up To Date Tetanus Booster (TDap): Unknown Date of Pneumonia Vaccine: Nov 16, 2016 Seasonal Allergies Seasonal Allergies: No Surgeries History of Surgeries: Yes Surgeries: Orthopedic (carpal tunnel) Respiratory History of Respiratory Disorde: Yes Respiratory Disorders: Sleep Apnea Cardiovascular History of Cardiac Disorders: Yes Cardiac Disorders: High Cholesterol, Hypertension Neurological History of Neurological Disord: No 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 System : No Hx 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 Disorders: No VEGETABLE COOK History: Menopausal Genitourinary History of Genitourinary Disor: No Gastrointestinal History of Gastrointestinal Di: No Musculoskeletal History of Musculoskeletal Dis: Yes Musculoskeletal Disorders: Fibromyalgia Endocrine History of Endocrine Disorders: Yes Endocrine Disorders: Diabetes, Non-Insulin dep HEENT History of HEENT Disorders: No Cancer History of Cancer: No Psychosocial History of Psychiatric Problem: No Integumentary History of Skin or Integumenta: No Blood Transfusions History of Blood Disorders: No Family Medical History Significant Family History: CAD Over 55 Years Old (father of "massive [place]" at 61) Family Medial History: Cardiovascular disease paternal grandfather maternal grandfather (chf) Diabetes mellitus paternal grandfather Myocardial infarction 19 FATHER Respiratory disorder 19 MOTHER (copd) Review of Systems-General Constitutional: No chills; diaphoresis, weakness EENTM: No blurred vision, No double vision, No mouth pain, No mouth swelling, No epistaxis, No nose congestion Respiratory: No cough, No dyspnea on exertion Cardiovascular: chest pain; No edema, No palpitations Gastrointestinal: RUQ; No jaundice, No nausea, No vomiting Genitourinary: No dysuria, No frequency, No hematuria Musculoskeletal: back pain, joint pain, joint swelling, muscle stiffness Skin: No change in color, No change in hair/nails Psychiatric/Neurological: Denies Anxiety, Denies Depressed, Denies Headache, Denies Seizure, Denies Tingling Other pt denies any abnormal bruising or bleeding. Physical Exam-General Problems Physical Exam Vital Signs Vital Signs - First Documented 08/10/17 11:05 O2 Delivery Room Air Capillary Refill : Less Than 3 Seconds General Appearance: WD/WN, no apparent distress Eyes: Bilateral Eye PERRL, Bilateral Eye EOMI HEENT: pharynx normal; No scleral icterus (R), No scleral icterus (L), No pale conjunctivae (R), No pale conjunctivae (L) Neck: non-tender, full range of motion, supple, normal inspection Respiratory: chest non-tender, lungs clear, normal breath sounds, no respiratory distress, no accessory muscle use Cardiovascular: regular rate, rhythm, no edema, systolic murmur Gastrointestinal: normal bowel sounds, soft, no organomegaly, no pulsatile mass , tenderness (subxyphoid and RUQ with deep palpation) Rectal: deferred Back: no CVA tenderness, no vertebral tenderness Extremities: normal range of motion, non-tender, normal inspection, no pedal edema, no calf tenderness Neurologic/Psychiatric: management advisor II-XII nml as tested, no motor/sensory deficits, alert, normal mood/affect, oriented x 3 Skin: normal color, warm/dry Lymphatic: no adenopathy (neck, axilla or groin) Data Review Labs Laboratory Tests 08/10/17 20:31: Troponin I < 0.30 08/11/17 05:50: White Blood Count 7.2, Red Blood Count 4.40, Hemoglobin 13.2, Hematocrit 40, Mean Corpuscular Volume 91, Mean Corpuscular Hemoglobin 30, Mean Corpuscular Hemoglobin Concent 33, Red Cell Distribution Width 14.6H, Platelet Count 305, Mean Platelet Volume 10.2, Neutrophils (%) (Auto) 57, Lymphocytes (%) (Auto) 31 , Monocytes (%) (Auto) 9, Eosinophils (%) (Auto) 3, Basophils (%) (Auto) 1, Neutrophils # (Auto) 4.1, Lymphocytes # (Auto) 2.2, Monocytes # (Auto) 0.6, Eosinophils # (Auto) 0.2, Basophils # (Auto) 0.0, Sodium Level 141, Potassium Level 4.1, Chloride Level 105, Carbon Dioxide Level 27, Anion Gap 9, Blood Urea Nitrogen 20H, Creatinine 0.89, Estimat Glomerular Filtration Rate > 60, BUN/ Creatinine Ratio 22, Glucose Level 97, Calcium Level 9.4, Magnesium Level 2.4, Total Bilirubin 0.4, Aspartate Amino Transf (AST/SGOT) 12, Alanine Aminotransferase (ALT/SGPT) 25, Alkaline Phosphatase 74, Total Protein 7.0, Albumin 4.0, Triglycerides Level 97, Cholesterol Level 170, LDL Cholesterol Direct 70, VLDL Cholesterol 19, HDL Cholesterol 74H, Thyroid Stimulating Hormone (TSH) 2.24 Assessment/Plan Assessment/Plan Assessment/Plan 1. RUQ pain r/o cholecystitis 2. DM 3. HTN Pt was admitted with chest pain, but seen by Senior Data Architect and cardiac problems basically ruled out. Pt appears to have some symptoms consistent with Cholecystitis. US of GB was ordered; even if this is positive pt can be sent home and have surgery as an outpt. I talked with pt about the surgery, recovery and also further work-up. If US shows no stones the next step would be HIDA scan. We discussed the surgery in detail and went over risks and complications; not limited to pain, bleeding, infection, scar and damage to bowel or bile ducts with need for further procedure. I would be happy to see her in my office to continue the work-up. All questions answered to her satisfaction Thank you for this consult. Clinical Quality Measures AMI/AHF: ASA po Prior to arrival: No DVT/VTE Risk/Contraindication: Risk Factor Score Per Nursin RFS Level Per Nursing on Admit: 2=Moderate NAOMI BOGGS DO August 11, 2017 13:20
[2017-08-11 14:55] VITALS: BP 119/69
--- NOTE | 2017-08-11 15:06 | Diagnostic Imaging Report ---
PROCEDURE: US abdomen complete. TECHNIQUE: Multiple real-time grayscale images were obtained over the abdomen in various projections. INDICATION: Right upper quadrant abdominal pain. FINDINGS: The pancreas is poorly visualized due to overlying bowel gas. There is no sonographic evidence of a focal intrahepatic abnormality. There is no intrahepatic biliary ductal dilatation. The gallbladder is nondistended without evidence of gallbladder wall thickening or pericholecystic fluid. There are no internal echoes to suggest stones or sludge. The kidneys are nonobstructed. The spleen is normal in size. There is no evidence of ascites or free fluid. IMPRESSION: 1. No sonographic evidence of cholelithiasis or cholecystitis. There is no biliary dilatation. 2. No evidence of hydronephrosis. 3. Unremarkable sonographic appearance of the liver. 4. No evidence of free fluid. 5. The pancreas could not be visualized. Dictated by: Dictated on workstation # [id number]
[2017-08-11] MEDS ORDERED: amLODIPine 10 MG (NORVASC) TAB PO SCH (21:00)
--- OUTSIDE RECORDS SUMMARY | 2017-08-15 17:12 | XMS REPORT | Continuity of Care Document ---
Author Author [facility] Organization [facility] Address Unknown Phone Unavailable Allergies Active Description Code Type Severity Reaction Onset Reported/Identified Relationship to Patient Clinical Status Yes No Known Drug Allergies [id number] Drug Allergy Unknown N/A 06/27/2015 Medications There is no data. Problems Date Dx Coded Attending Type Code Diagnosis Diagnosed By 12/01/2014 LINN GRANT DO Ot 327.23 06/24/2015 JENELLE MAURER MD, Ot M47.816 SPONDYLOSIS W/O MYELOPATHY OR RADICULOPA 06/24/2015 JENELLE MAURER MD, Ot M50.13 CERVICAL DISC DISORDER W RADICULOPATHY, 06/24/2015 JENELLE MAURER MD, Ot M79.7 FIBROMYALGIA 06/24/2015 JENELLE MAURER MD, Ot Z79.899 OTHER HALF-WAY (CURRENT) DRUG THERAPY 06/27/2015 JENELLE MAURER MD, Ot M47.816 SPONDYLOSIS W/O MYELOPATHY OR RADICULOPA 06/27/2015 JENELLE MAUERR MD, Ot M50.13 CERVICAL DISC DISORDER W RADICULOPATHY, 06/27/2015 JENELLE MAURER MD, Ot M79.7 FIBROMYALGIA 06/27/2015 JENELLE MAURER MD, Ot Z79.899 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) DRUG THERAPY 07/05/2015 JENELLE MAURER MD, Ot M47.816 SPONDYLOSIS W/O MYELOPATHY OR RADICULOPA 07/05/2015 JENELLE MAURER MD, Ot M50.13 CERVICAL DISC DISORDER W RADICULOPATHY, 07/05/2015 JENELLE MAURER MD, Ot M79.7 FIBROMYALGIA 07/05/2015 JENELLE MAURER MD, Ot Z79.899 OTHER HALF-WAY (CURRENT) DRUG THERAPY 04/14/2016 NADIRA SINGH APRN Ot E11.9 TYPE 2 DIABETES MELLITUS WITHOUT COMPLIC 04/14/2016 NADIRA SINGH APRN Ot I10 ESSENTIAL (PRIMARY) HYPERTENSION 04/14/2016 NADIRA SINGH APRN Ot S61.211A LACERATION W/O FB OF L IDX FNGR W/O JUANJO 04/14/2016 NADIRA SINGH APRN Ot W45.8XXA OTH FOREIGN BODY OR OBJECT ENTERING THRO 04/14/2016 NADIRA SINGH APRN Ot Y92.010 KITCHEN OF SINGLE-FAMILY (PRIVATE) HOUSE 04/14/2016 NADIRA SINGH APRN Ot Y99.8 OTHER EXTERNAL CAUSE STATUS 04/14/2016 NADIRA SINGH APRN Ot Z23 ENCOUNTER FOR IMMUNIZATION 04/14/2016 NADIRA SINGH APRN Ot Z79.84 HALF-WAY (CURRENT) USE OF ORAL HYPOGLYC 04/14/2016 NADIRA SINGH APRN Ot Z79.899 OTHER HALF-WAY (CURRENT) DRUG THERAPY 04/14/2016 EMELYN DELONG MD, Ot M50.30 OTHER CERVICAL DISC DEGENERATION, UNSP C 04/14/2016 EMELYN DELONG MD, Ot M51.36 OTHER INTERVERTEBRAL DISC DEGENERATION, 04/16/2016 NADIRA SINGH APRN Ot E11.9 TYPE 2 DIABETES MELLITUS WITHOUT COMPLIC 04/16/2016 NADIRA SINGH APRN Ot I10 ESSENTIAL (PRIMARY) HYPERTENSION 04/16/2016 NADIRA SINGH APRN Ot S61.211A LACERATION W/O FB OF L IDX FNGR W/O JUANJO 04/16/2016 NADIRA SINGH APRN Ot W45.8XXA OTH FOREIGN BODY OR OBJECT ENTERING THRO 04/16/2016 NADIRA SINGH APRN Ot Y92.010 KITCHEN OF SINGLE-FAMILY (PRIVATE) HOUSE 04/16/2016 NADIRA SINGH APRN Ot Y99.8 OTHER EXTERNAL CAUSE STATUS 04/16/2016 NADIRA SINGH APRN Ot Z23 ENCOUNTER FOR IMMUNIZATION 04/16/2016 NADIRA SINGH APRN Ot Z79.84 HALF-WAY (CURRENT) USE OF ORAL HYPOGLYC 04/16/2016 NADIRA SINGH APRN Ot Z79.899 OTHER HALF-WAY (CURRENT) DRUG THERAPY 04/17/2016 EMELYN DELONG MD Ot M50.30 OTHER CERVICAL DISC DEGENERATION, UNSP C 04/17/2016 EMELYN DELONG MD Ot M51.36 OTHER INTERVERTEBRAL DISC DEGENERATION, 04/23/2017 EMELYN DELONG MD, Ot M50.30 OTHER CERVICAL DISC DEGENERATION, UNSP C 04/23/2017 EMELYN DELONG MD, Ot M51.36 OTHER INTERVERTEBRAL DISC DEGENERATION, Procedures There is no data. Results Test Result Range Complete blood count (CBC) with automated white blood cell (WBC) differential - 08/10/17 11:05 Blood leukocytes automated count (number/volume) 11.1 10*3/uL 4.3-11.0 Blood erythrocytes automated count (number/volume) 4.45 10*6/uL 4.35-5.85 Venous blood hemoglobin measurement (mass/volume) 13.4 g/dL 11.5-16.0 Blood hematocrit (volume fraction) 40 % 35-52 Automated erythrocyte mean corpuscular volume 90 [foz_us] 80-99 Automated erythrocyte mean corpuscular hemoglobin (mass per erythrocyte) 30 pg 25-34 Automated erythrocyte mean corpuscular hemoglobin concentration measurement ( mass/volume) 33 g/dL 32-36 Automated erythrocyte distribution width ratio 14.9 % 10.0-14.5 Automated blood platelet count (count/volume) 357 10*3/uL 130-400 Automated blood platelet mean volume measurement 9.6 [foz_us] 7.4-10.4 Automated blood neutrophils/100 leukocytes 69 % 42-75 Automated blood lymphocytes/100 leukocytes 21 % 12-44 Blood monocytes/100 leukocytes 8 % 0-12 Automated blood eosinophils/100 leukocytes 2 % 0-10 Automated blood basophils/100 leukocytes 0 % 0-10 Blood neutrophils automated count (number/volume) 7.7 10*3 1.8-7.8 Blood lymphocytes automated count (number/volume) 2.4 10*3 1.0-4.0 Blood monocytes automated count (number/volume) 0.9 10*3 0.0-1.0 Automated eosinophil count 0.2 10*3/uL 0.0-0.3 Automated blood basophil count (count/volume) 0.0 10*3/uL 0.0-0.1 PT panel in platelet poor plasma by coagulation assay - 08/10/17 11:05 Prothrombin time (PT) in platelet poor plasma by coagulation assay 12.2 s 12.2-14.7 INR in platelet poor plasma or blood by coagulation assay 0.9 0.8-1.4 Activated partial thromboplastin time (aPTT) in platelet poor plasma bycoagulation assay - 08/10/17 11:05 Activated partial thromboplastin time (aPTT) in platelet poor plasma bycoagulation assay 27 s 24-35 Comprehensive metabolic panel - 08/10/17 11:05 Serum or plasma sodium measurement (moles/volume) 139 mmol/L 135-145 Serum or plasma potassium measurement (moles/volume) 3.7 mmol/L 3.6-5.0 Serum or plasma chloride measurement (moles/volume) 104 mmol/L 98-107 Carbon dioxide 25 mmol/L 21-32 Serum or plasma anion gap determination (moles/volume) 10 mmol/L 5-14 Serum or plasma urea nitrogen measurement (mass/volume) 22 mg/dL 7-18 Serum or plasma creatinine measurement (mass/volume) 0.95 mg/dL 0.60-1.30 Serum or plasma urea nitrogen/creatinine mass ratio 23 NRG Serum or plasma creatinine measurement with calculation of estimated glomerular filtration rate > NRG Serum or plasma glucose measurement (mass/volume) 85 mg/dL 70-105 Serum or plasma calcium measurement (mass/volume) 9.6 mg/dL 8.5-10.1 Serum or plasma total bilirubin measurement (mass/volume) 0.4 mg/dL 0.1-1.0 Serum or plasma alkaline phosphatase measurement (enzymatic activity/volume) 78 U/L 40-136 Serum or plasma aspartate aminotransferase measurement (enzymatic activity/ volume) 16 U/L 5-34 Serum or plasma alanine aminotransferase measurement (enzymatic activity/volume ) 28 U/L 0-55 Serum or plasma protein measurement (mass/volume) 7.3 g/dL 6.4-8.2 Serum or plasma albumin measurement (mass/volume) 4.5 g/dL 3.2-4.5 Magnesium - 08/10/17 11:05 Magnesium 2.4 mg/dL 1.8-2.4 Serum or plasma troponin i.cardiac measurement (mass/volume) - 08/10/17 11:05 Serum or plasma troponin i.cardiac measurement (mass/volume) < ng/ mL <0.30 Myoglobin, serum - 08/10/17 11:05 Myoglobin, serum 37.8 ng/mL 10.0-92.0 Lipase - 08/10/17 11:05 Lipase 29 U/L 8-78 Serum or plasma troponin i.cardiac measurement (mass/volume) - 08/10/17 20:31 Serum or plasma troponin i.cardiac measurement (mass/volume) < ng/ mL <0.30 Complete blood count (CBC) with automated white blood cell (WBC) differential - 08/11/17 05:50 Blood leukocytes automated count (number/volume) 7.2 10*3/uL 4.3-11.0 Blood erythrocytes automated count (number/volume) 4.40 10*6/uL 4.35-5.85 Venous blood hemoglobin measurement (mass/volume) 13.2 g/dL 11.5-16.0 Blood hematocrit (volume fraction) 40 % 35-52 Automated erythrocyte mean corpuscular volume 91 [foz_us] 80-99 Automated erythrocyte mean corpuscular hemoglobin (mass per erythrocyte) 30 pg 25-34 Automated erythrocyte mean corpuscular hemoglobin concentration measurement ( mass/volume) 33 g/dL 32-36 Automated erythrocyte distribution width ratio 14.6 % 10.0-14.5 Automated blood platelet count (count/volume) 305 10*3/uL 130-400 Automated blood platelet mean volume measurement 10.2 [foz_us] 7.4-10.4 Automated blood neutrophils/100 leukocytes 57 % 42-75 Automated blood lymphocytes/100 leukocytes 31 % 12-44 Blood monocytes/100 leukocytes 9 % 0-12 Automated blood eosinophils/100 leukocytes 3 % 0-10 Automated blood basophils/100 leukocytes 1 % 0-10 Blood neutrophils automated count (number/volume) 4.1 10*3 1.8-7.8 Blood lymphocytes automated count (number/volume) 2.2 10*3 1.0-4.0 Blood monocytes automated count (number/volume) 0.6 10*3 0.0-1.0 Automated eosinophil count 0.2 10*3/uL 0.0-0.3 Automated blood basophil count (count/volume) 0.0 10*3/uL 0.0-0.1 Comprehensive metabolic panel - 08/11/17 05:50 Serum or plasma sodium measurement (moles/volume) 141 mmol/L 135-145 Serum or plasma potassium measurement (moles/volume) 4.1 mmol/L 3.6-5.0 Serum or plasma chloride measurement (moles/volume) 105 mmol/L 98-107 Carbon dioxide 27 mmol/L 21-32 Serum or plasma anion gap determination (moles/volume) 9 mmol/L 5-14 Serum or plasma urea nitrogen measurement (mass/volume) 20 mg/dL 7-18 Serum or plasma creatinine measurement (mass/volume) 0.89 mg/dL 0.60-1.30 Serum or plasma urea nitrogen/creatinine mass ratio 22 NRG Serum or plasma creatinine measurement with calculation of estimated glomerular filtration rate > NRG Serum or plasma glucose measurement (mass/volume) 97 mg/dL 70-105 Serum or plasma calcium measurement (mass/volume) 9.4 mg/dL 8.5-10.1 Serum or plasma total bilirubin measurement (mass/volume) 0.4 mg/dL 0.1-1.0 Serum or plasma alkaline phosphatase measurement (enzymatic activity/volume) 74 U/L 40-136 Serum or plasma aspartate aminotransferase measurement (enzymatic activity/ volume) 12 U/L 5-34 Serum or plasma alanine aminotransferase measurement (enzymatic activity/volume ) 25 U/L 0-55 Serum or plasma protein measurement (mass/volume) 7.0 g/dL 6.4-8.2 Serum or plasma albumin measurement (mass/volume) 4.0 g/dL 3.2-4.5 Magnesium - 08/11/17 05:50 Magnesium 2.4 mg/dL 1.8-2.4 Lipid 1996 panel - 08/11/17 05:50 Serum or plasma triglyceride measurement (mass/volume) 97 mg/dL <150 Serum or plasma cholesterol measurement (mass/volume) 170 mg/dL < 200 Serum or plasma cholesterol in HDL measurement (mass/volume) 74 mg/ dL 40-60 Cholesterol in LDL [mass/volume] in serum or plasma by direct assay 70 mg/dL 1-129 Serum or plasma cholesterol in VLDL measurement (mass/volume) 19 mg/ dL 5-40 THYROID STIMULATING HORMONE - 08/11/17 05:50 THYROID STIMULATING HORMONE 2.24 u[iU]/mL 0.35-4.94 Encounters ACCT No. Visit Date/Time Discharge Status Pt. Type Provider Facility Loc./Unit Complaint [id number] 04/22/2017 15:21:00 04/22/2017 23:59:59 CLS Preadmit LINN GRANT DO [facility] CARD CHEST PAIN [id number] 04/22/2017 15:16:00 04/22/2017 23:59:59 CLS Preadmit LINN GRANT DO [facility] CARD CHEST PAIN,HTN [id number] 04/14/2016 19:38:00 04/14/2016 20:12:00 DIS Emergency NADIRA SINGH APRN [facility] ER L FINGER LAC [id number] 06/27/2015 12:19:00 06/27/2015 13:05:00 DIS Outpatient JENELLE MAURER MD [facility] CARD SPONDYLOSIS [id number] 06/24/2015 08:29:00 06/24/2015 09:39:00 DIS Outpatient JENELLE MAURER MD [facility] CARD SPONDYLOSIS [id number] 03/23/2015 10:02:00 03/23/2015 23:59:59 CLS Outpatient EMELYN DELONG MD [facility] RAD CERVICAL AND LUMBAR DEGENERATION [id number] 12/09/2014 21:05:00 12/10/2014 06:25:00 DIS Outpatient LINN GRANT DO [facility] SLEEP [id number] 12/01/2014 12:55:00 12/01/2014 13:31:00 DIS Outpatient LINN GRANT DO [facility] SLEEP [id number] 08/10/2017 11:18:00 Document Registration
== END 2017-08-11 13:08 | disposition home or self-care (01) ==
LOC: EDUNIT# 10:54 → ER 10:56 → 4TH 13:18 → UNDOADMOB 13:18 → 4TH 13:40 → UNDODISOB 08-11 14:55
PROVIDERS: ADMIT Internal Medicine; ATTEND Family Medicine
DX: R07.89 Other chest pain (principal); R10.11 Right upper quadrant pain; E11.9 Type 2 diabetes mellitus without complications; I10 Essential (primary) hypertension; M79.7 Fibromyalgia; E78.5 Hyperlipidemia, unspecified; Z87.891 Personal history of nicotine dependence; Z79.84 Long term (current) use of oral hypoglycemic drugs; E66.2 Morbid (severe) obesity with alveolar hypoventilation; K21.9 Gastro-esophageal reflux disease without esophagitis; M51.36 Other intervertebral disc degeneration, lumbar region; Z68.38 Body mass index [BMI] 38.0-38.9, adult
CPT/HCPCS: 36415; 71045; 76700; 80053; 80061; 83690; 83735; 83874; 84443; 84484; 85025; 85610; 85730; 93005; 93041; 93306

== ENCOUNTER → 2017-08-21 | Outpatient (CLI) | payer BC ==
[~2017-08-21] MED LIST changes: +CATHETER FLUSH 10 ML SYR IV PRN; +CETI10CA PO; +CHOL10007 PO; +CYCL10TA9; +HYDR12.56; +OMEP20TA7 PO; +ROPI0.5T2 PO; +VALS1TAB78 PO
--- NOTE | 2017-08-21 15:22 | Diagnostic Imaging Report ---
Hepatobiliary scan. Indication: Abdominal pain, chest pain. The study was performed following administration of 5.11 mCi of 99m technetium Choletec. One can of Ensure was used for the ejection fraction calculation. There are no previous nuclear medicine studies available for comparison. The abdominal ultrasound exam performed on 08/11/2017 failed to show any sign of cholelithiasis or acute cholecystitis. On this study there is uptake of the radiotracer by the gallbladder before 30 minutes. This is weighing against a diagnosis of acute cholecystitis. There is also extension of radiotracer into the small bowel indicating the common bile duct is not obstructed. The ejection fraction is 50% (normal greater than 35%). Impression: 1. There is no evidence for acute cholecystitis or for obstruction of the common bile duct. 2. The ejection fraction is 50% and within normal limits. Dictated by: Dictated on workstation # [id number]
== END ==
LOC: CARD 11:39
PROVIDERS: ATTEND Surgery
DX: R07.9 Chest pain, unspecified (principal)
CPT/HCPCS: 78227

== ENCOUNTER → 2017-08-21 | Outpatient (CLI) | payer BC ==
[~2017-08-21] MED LIST changes: -CATHETER FLUSH 10 ML SYR IV PRN
== END ==
LOC: CARD 11:45
PROVIDERS: ATTEND Nurse Practitioner Family
DX: R00.2 Palpitations (principal); R06.09 Other forms of dyspnea; I10 Essential (primary) hypertension; Z86.39 Personal history of other endocrine, nutritional and metabolic disease
CPT/HCPCS: 93225; 93226

== ENCOUNTER → 2017-08-23 | Outpatient (CLI) | payer BC ==
[~2017-08-23] MED LIST changes: +CATHETER FLUSH 10 ML SYR IV PRN; +REGADENOSON 0.4 MG/5 ML SYR (LEXISCAN) IV ONE
[2017-08-23 09:55] VITALS: BP 125/73
--- NOTE | 2017-08-27 13:14 | STRESS TEST ---
DATE OF SERVICE: 08/23/2017 RESTING AND POST REGADENOSON TECHNETIUM 99M TETROFOSMIN SPECT CT IMAGING ORDERING PHYSICIAN: MICHELLE Malik. PRIMARY PHYSICIAN: Neyda Sloan DO. OTHER PHYSICIAN: Juan Garcia MD, MA, FACP, FACC. CLINICAL DIAGNOSIS: Shortness of breath, palpitations, and hypertension. Baseline images were carried out after injection of 10.87 mCi of technetium-99m tetrofosmin. This was followed by 0.4 mg of regadenoson and 31.7 mCi of technetium-99m tetrofosmin for stress imaging. The electrocardiogram showed sinus rhythm at baseline and it did not change significantly with the regadenoson infusion. The patient tolerated the procedure well. Review of images at rest and following regadenoson infusion does not indicate any significant perfusion defects consistent with significant myocardial ischemia or infarction. Gated images show normal global left ventricular systolic function and normal regional wall motion. Left ventricular ejection fraction is calculated to be 75%. Left ventricular end diastolic volume is 36 mL. TID is absent (1.13). CONCLUSIONS: 1. No evidence of any significant myocardial ischemia or infarction on this study. 2. Normal regional wall motion. 3. Normal global left ventricular systolic function with a calculated ejection fraction of 75%. Job ID: [id number] DocumentID: [id number] Dictated Date: 08/27/2017 11:03:26 Outreach Team Member Date: 08/27/2017 13:13:29 Dictated By: JUAN GARCIA MD, MA, FACP, FACC,
== END ==
LOC: CARD 07:52
PROVIDERS: ATTEND Nurse Practitioner Family
DX: I10 Essential (primary) hypertension (principal); R00.2 Palpitations; R06.09 Other forms of dyspnea; Z86.39 Personal history of other endocrine, nutritional and metabolic disease
CPT/HCPCS: 78452; 93017

== ENCOUNTER 2017-08-29 09:50 | Outpatient (CLI) | payer BC ==
[~2017-08-29] VITALS: Ht 162.6 cm; Wt 97.5 kg
[~2017-08-29 09:50] MED LIST changes: -CATHETER FLUSH 10 ML SYR IV PRN; -OMEP20TA7 PO; -REGADENOSON 0.4 MG/5 ML SYR (LEXISCAN) IV ONE; -ROPI0.5T2 PO
[2017-08-29] MEDS ORDERED: ROPI0.5T2 PO (09:57)
[2017-08-29] MEDS ORDERED: OMEP20TA7 PO (10:12)
== END 2017-08-29 10:34 ==
LOC: PREOP 09:50
PROVIDERS: ATTEND Surgery
DX: Z01.818 Encounter for other preprocedural examination (principal)

== ENCOUNTER 2017-09-02 08:43 | Day surgery (SDC) | payer BC ==
[~2017-09-02] VITALS: Ht 162.6 cm; Wt 97.5 kg
[~2017-09-02 08:43] MED LIST changes: +OMEP20TA7 PO; +ROPI0.5T2 PO
--- OUTSIDE RECORDS SUMMARY | 2017-09-02 08:47 | XMS REPORT | Continuity of Care Document ---
Author Author [facility] Organization [facility] Address Unknown Phone Unavailable Allergies Active Description Code Type Severity Reaction Onset Reported/Identified Relationship to Patient Clinical Status Yes No Known Drug Allergies [id number] Drug Allergy Unknown N/A 06/27/2015 Medications There is no data. Problems Date Dx Coded Attending Type Code Diagnosis Diagnosed By 12/01/2014 LINN GRANT DO Ot 327.23 06/24/2015 JENELLE MAURER MD, Ot M47.816 SPONDYLOSIS W/O MYELOPATHY OR RADICULOPA 06/24/2015 JENELLE MAURER MD, Ot M50.13 CERVICAL DISC DISORDER W RADICULOPATHY, 06/24/2015 JENELLE MAURER MD, Ot M79.7 FIBROMYALGIA 06/24/2015 JENELLE MAURER MD, Ot Z79.899 OTHER RETIREMENT (CURRENT) DRUG THERAPY 06/27/2015 JENELLE MUARER MD, Ot M47.816 SPONDYLOSIS W/O MYELOPATHY OR RADICULOPA 06/27/2015 JENELLE MAURER MD, Ot M50.13 CERVICAL DISC DISORDER W RADICULOPATHY, 06/27/2015 JENELLE MAURER MD, Ot M79.7 FIBROMYALGIA 06/27/2015 JENELLE MAURER MD, Ot Z79.899 OTHER ROPE WALKER (CURRENT) DRUG THERAPY 07/05/2015 JENELLE MAURER MD, Ot M47.816 SPONDYLOSIS W/O MYELOPATHY OR RADICULOPA 07/05/2015 JENELLE MAURER MD, Ot M50.13 CERVICAL DISC DISORDER W RADICULOPATHY, 07/05/2015 JENELLE MAURER MD, Ot M79.7 FIBROMYALGIA 07/05/2015 JENELLE MAURER MD, Ot Z79.899 OTHER RETIREMENT (CURRENT) DRUG THERAPY 04/14/2016 NADIRA SINGH APRN [...] IMMUNIZATION 04/14/2016 NADIRA SINGH APRN Ot Z79.84 RETIREMENT (CURRENT) USE OF ORAL HYPOGLYC 04/14/2016 NADIRA SINGH APRN Ot Z79.899 OTHER RETIREMENT (CURRENT) DRUG THERAPY 04/14/2016 EMELYN DELONG MD, [...] IMMUNIZATION 04/16/2016 NADIRA SINGH APRN Ot Z79.84 RETIREMENT (CURRENT) USE OF ORAL HYPOGLYC 04/16/2016 NADIRA SINGH APRN Ot Z79.899 OTHER RETIREMENT (CURRENT) DRUG THERAPY 04/17/2016 EMELYN DELONG MD Ot M50.30 OTHER CERVICAL DISC DEGENERATION, UNSP C 04/17/2016 EMELYN DELONG MD Ot M51.36 OTHER INTERVERTEBRAL DISC DEGENERATION, 04/23/2017 EMELYN DELONG MD Ot M50.30 OTHER CERVICAL DISC DEGENERATION, UNSP C 04/23/2017 EMELYN DELONG MD Ot M51.36 OTHER INTERVERTEBRAL DISC DEGENERATION, 08/11/2017 ORENDER DO, LINN S Ot E11.9 TYPE 2 DIABETES MELLITUS WITHOUT COMPLIC 08/11/2017 ORENDER DO, LINN S Ot E66.2 MORBID (SEVERE) OBESITY WITH ALVEOLAR HY 08/11/2017 ORENDER DO, LINN S Ot E78.5 HYPERLIPIDEMIA, UNSPECIFIED 08/11/2017 ORENDER DO, LINN S Ot I10 ESSENTIAL (PRIMARY) HYPERTENSION 08/11/2017 ORENDER DO, LINN S Ot K21.9 GASTRO-ESOPHAGEAL REFLUX DISEASE WITHOUT 08/11/2017 ORENDER DO, LINN S Ot M51.36 OTHER INTERVERTEBRAL DISC DEGENERATION, 08/11/2017 ORENDER DO, LINN S Ot M79.7 FIBROMYALGIA 08/11/2017 ORENDER DO, LINN S Ot R07.89 OTHER CHEST PAIN 08/11/2017 ORENDER DO, LINN S Ot R10.11 RIGHT UPPER QUADRANT PAIN 08/11/2017 ORENDER DO, LINN S Ot Z68.38 BODY MASS INDEX (BMI) 38.0-38.9, ADULT 08/11/2017 ORENDER DO, LINN S Ot Z79.84 RETIREMENT (CURRENT) USE OF ORAL HYPOGLYC 08/11/2017 TORYNDER DO, LINN S Ot Z87.891 PERSONAL HISTORY OF NICOTINE DEPENDENCE 08/11/2017 ORENDER DO, LINN S Ot E11.9 TYPE 2 DIABETES MELLITUS WITHOUT COMPLIC 08/11/2017 ORENDER DO, LINN S Ot E66.2 MORBID (SEVERE) OBESITY WITH ALVEOLAR HY 08/11/2017 ORENDER DO, LINN S Ot E78.5 HYPERLIPIDEMIA, UNSPECIFIED 08/11/2017 ORENDER DO, LINN S Ot I10 ESSENTIAL (PRIMARY) HYPERTENSION 08/11/2017 ORENDER DO, LINN S Ot K21.9 GASTRO-ESOPHAGEAL REFLUX DISEASE WITHOUT 08/11/2017 ORENDER DO, LINN S Ot M51.36 OTHER INTERVERTEBRAL DISC DEGENERATION, 08/11/2017 ORENDER DO, LINN S Ot M79.7 FIBROMYALGIA 08/11/2017 TORYNDER , LINN S Ot R07.89 OTHER CHEST PAIN 08/11/2017 TORYNDER DO, LINN S Ot R10.11 RIGHT UPPER QUADRANT PAIN 08/11/2017 TORYNDER , LINN S Ot Z68.38 BODY MASS INDEX (BMI) 38.0-38.9, ADULT 08/11/2017 TORYNDSHAHANA IZQUIERDO DOLINE S Ot Z79.84 ROPE WALKER (CURRENT) USE OF ORAL HYPOGLYC 08/11/2017 TORYNDER , LINN S Ot Z87.891 PERSONAL HISTORY OF NICOTINE DEPENDENCE 08/15/2017 TORYNDER , LINN S Ot E11.9 TYPE 2 DIABETES MELLITUS WITHOUT COMPLIC 08/15/2017 TORYNDER DO, LINN S Ot E66.2 MORBID (SEVERE) OBESITY WITH ALVEOLAR HY 08/15/2017 TORYNDER , LINN S Ot E78.5 HYPERLIPIDEMIA, UNSPECIFIED 08/15/2017 TORYNDER , ILNN S Ot I10 ESSENTIAL (PRIMARY) HYPERTENSION 08/15/2017 TORYNDER , LINN S Ot K21.9 GASTRO-ESOPHAGEAL REFLUX DISEASE WITHOUT 08/15/2017 ORENDER DO, LINN S Ot M51.36 OTHER INTERVERTEBRAL DISC DEGENERATION, 08/15/2017 SHAHANA GRANT DOLINE S Ot M79.7 FIBROMYALGIA 08/15/2017 TORYNDER SHAHANA DOMINIQUELINE S Ot R07.89 OTHER CHEST PAIN 08/15/2017 SHAHANA GRANT DOLINE S Ot R10.11 RIGHT UPPER QUADRANT PAIN 08/15/2017 JUANITA DOMINIQUE, LINN S Ot Z68.38 BODY MASS INDEX (BMI) 38.0-38.9, ADULT 08/15/2017 TORYNDER SHAHANA DOMINIQUELINE S Ot Z79.84 ROPE WALKER (CURRENT) USE OF ORAL HYPOGLYC 08/15/2017 TORYNDER , LINN S Ot Z87.891 PERSONAL HISTORY OF NICOTINE DEPENDENCE 08/15/2017 EMELYN DELONG MD Ot M50.30 OTHER CERVICAL DISC DEGENERATION, UNSP C 08/15/2017 EMELYN DELONG MD Ot M51.36 OTHER INTERVERTEBRAL DISC DEGENERATION, 08/19/2017 EMELYN DELONG MD Ot M50.30 OTHER CERVICAL DISC DEGENERATION, UNSP C 08/19/2017 EMELYN DELONG MD Ot M51.36 OTHER INTERVERTEBRAL DISC DEGENERATION, 08/23/2017 NAOMI BOGGS DO Ot R07.9 CHEST PAIN, UNSPECIFIED Procedures There is no data. Results Test [...] Status Pt. Type Provider Facility Loc./Unit Complaint [id number] 08/23/2017 07:52:00 08/23/2017 23:59:59 CLS Outpatient JANETH CHRISTY [facility] CARD PALPITATIONS,HICKMAN, HTN [id number] 08/21/2017 11:45:00 08/21/2017 23:59:59 CLS Outpatient JANETH CHRISTY [facility] CARD PALPITATIONS,HICKMAN, HTN [id number] 08/21/2017 11:39:00 08/21/2017 23:59:59 CLS Outpatient FLAKITA DOMINIQUE NAOMI B [facility] CARD CHEST PAIN [id number] 08/10/2017 13:40:00 08/11/2017 13:08:00 DIS Inpatient ORENDER DO LINN S [facility] 4TH CHEST PAIN [id number] 04/22/2017 15:21:00 04/22/2017 23:59:59 CLS Preadmit ORENDER DO, LINN S [facility] CARD CHEST PAIN [id number] 04/22/2017 15:16:00 04/22/2017 23:59:59 CLS Preadmit ORENDER DO, LINN S [facility] CARD CHEST PAIN,HTN [id number] 04/14/2016 19:38:00 04/14/2016 20:12:00 DIS Emergency NADIRA SINGH BICYCLE COURIER [facility] ER L FINGER LAC [id number] 06/27/2015 12:19:00 06/27/2015 13:05:00 DIS Outpatient JENELLE MAURER MD [facility] CARD SPONDYLOSIS [id number] 06/24/2015 08:29:00 06/24/2015 09:39:00 DIS Outpatient JENELLE MAURER MD [facility] CARD SPONDYLOSIS [id number] 03/23/2015 10:02:00 03/23/2015 23:59:59 CLS Outpatient EMELYN DELONG MD [facility] RAD CERVICAL AND LUMBAR DEGENERATION [id number] 12/09/2014 21:05:00 12/10/2014 06:25:00 DIS Outpatient TORYNDLORE IZQUIERDO DOQUELINE S [facility] SLEEP [id number] 12/01/2014 12:55:00 12/01/2014 13:31:00 DIS Outpatient ORENDER DOLINN [facility] SLEEP
[2017-09-02] MEDS ORDERED: LACTATED RINGERS 1,000 ML IV STA (08:54)
[2017-09-02] MEDS ORDERED: HURRICAINE EXT TUBE (BENZOCAINE) XX PRN (09:00)
[2017-09-02] MEDS ORDERED: LACTATED RINGERS 1,000 ML IV ONE (09:10)
--- NOTE | 2017-09-02 09:14 | Progress Note-Pre Operative ---
Pre-Operative Progress Note H&P Reviewed The H&P was reviewed, patient examined and no changes noted. Time Seen by Provider: 09:10 Date H&P Reviewed: Sep 02, 2017 Time H&P Reviewed: 09:12 Pre-Operative Diagnosis: Gastritis, Screening colonoscopy NAOMI BOGGS DO Sep 02, 2017 09:14
[2017-09-02 09:24] VITALS: BP 136/78
[2017-09-02] MEDS ORDERED: PROPOFOL INJECTION 50 ML IV ONE (10:05)
[2017-09-02] MEDS ORDERED: MIDAZOLAM 5 MG/5 ML (VERSED) VIAL ONE (10:06)
[2017-09-02] MEDS ORDERED: HURRICAINE EXT TUBE (BENZOCAINE) ONE (10:21)
--- NOTE | 2017-09-02 10:55 | Progress Note-Post Operative ---
Post-Operative Progess Note Surgeon (s)/Bisque Grader (s) Surgeon NAOMI BOGGS DO Bisque Grader: none Pre-Operative Diagnosis Gastritis, Screening colonoscopy Post-Operative Diagnosis Gastritis Gastric Polyp Hiatal Hernia Descending colon polyp Internal hemorrhoids Procedure & Operative Findings Date of Procedure 09/02/17 Procedure Performed/Findings EGD with bx Colon with hot bx Anesthesia Type IV sedation by SHOP MECHANIC HELPER Estimated Blood Loss Estimated blood loss (mL): scant Specimens/Packing Specimens Removed Antral bx Bx of Gastric Polyp Descending colon polyp NAOMI BOGGS DO Sep 02, 2017 10:55
--- NOTE | 2017-09-02 10:57 | Endoscopy Discharge Instruct ---
Endo Procedure/Findings Findings 1.: Gastritis (with gastric Polyp) 2.: Hiatal Hernia 3.: Polyp 4.: Internal Hemorrhoids Discharge Instructions - Activity: You might feel a little sleepy until tomorrow. This is due to the medicine you received to relax you. Until tomorrow, you should: NOT drive a car, operate machinery or power tools. NOT drink any alcoholic beverages. NOT make any important decisions or sign importortant papers. Do not return to work until tomorrow, unless otherwise instructed. Resume previous activities tomorrow. Diet: Start by taking liquids. If you tolerate liquids, advance to solid food. Make appointment for 1 week Notify Physician - If you experience excessive bleeding, unusual abdominal pain, fever, or chest pain, contact your doctor immediately. Follow-Up: - I have received and understand the above instructions and will call my doctor if I have any further questions. Patient Signature Date Nurse Signature Other (Relationship) NAOMI BOGGS DO Sep 02, 2017 10:57
[2017-09-02 11:00] VITALS: BP 155/72
[2017-09-02 11:30] VITALS: BP 125/70
[2017-09-02 11:38] VITALS: BP 125/70
--- NOTE | 2017-09-02 14:22 | Anesthesia-General Post-Op ---
MAC Patient Condition Mental Status/LOC: Same as Preop Cardiovascular: Satisfactory Nausea/Vomiting: Absent Respiratory: Satisfactory Pain: Controlled Complications: Absent Post Op Complications Complications None Follow Up Care/Instructions Patient Instructions None needed. Anesthesiology Discharge Order Discharge Order Patient is doing well, no complaints, stable vital signs, no apparent adverse anesthesia problems. No complications reported per nursing. JOSE DE GUZMAN CRNA Sep 02, 2017 14:22
--- NOTE | 2017-09-02 21:45 | OPERATIVE REPORT ---
DATE OF SERVICE: PREOPERATIVE DIAGNOSES: 1. Gastritis. 2. Screening colonoscopy. POSTOPERATIVE DIAGNOSES: 1. Gastritis. 2. Gastric polyp. 3. Hiatal hernia. 4. Descending colon polyp. 5. Internal hemorrhoids. PROCEDURES: 1. EGD with biopsy. 2. Colonoscopy with hot biopsy. SURGEON: Herve Martinez DO. PAINT [employer]ERS SUPERVISOR: None. ANESTHESIA: IV sedation. SPECIMENS: 1. Biopsy from the antrum. 2. Biopsy of a gastric polyp. 3. Biopsy of a colon polyp. BLOOD LOSS: Scant. FLUIDS: Per anesthesia. POSTOPERATIVE CONDITION: Stable. INDICATION FOR PROCEDURE: The patient is a 56-year-old female who has been having some chest pain, possible gastritis, needed a workup for this. Also, she never had a colonoscopy and needed a screening colonoscopy. FINDINGS: The patient had some gastritis in the stomach. She also had a gastric polyp and a small hiatal hernia. In the colon, the patient had a descending colon polyp as well as some internal hemorrhoids. PROCEDURE NOTE: After informed consent was obtained, the patient was brought to the endoscopy suite, placed in the bed in left lateral decubitus position. She was administered IV sedation by the INFORMAL WAITER/WAITRESS who then monitored her vitals the entire time, heart rate, blood pressure and pulse ox and the scope was inserted down the mouth into the esophagus and down in the stomach. Upon entering the stomach noted some erythema; it looked a little bit red, able to push into the duodenum. This looked normal. So, it looked like possibly a polyp in the stomach just right at the pylorus. I elected to do biopsy of the antrum and then elected to do a biopsy of this polyp. This was sent to pathology. Retroflexed, could see a small hiatal hernia, also took a picture of the small hiatal hernia on the way in. GE junction looked okay. Pulled the scope back up the stomach into the esophagus, took a picture of the GE junction and then up the esophagus and then out the mouth. Switched scopes, switched gloves and started down below. I inserted the scope, pushed all the way about 140 cm, able to get to the cecum, took a picture of the appendiceal orifice, noted the ileocecal valve and then slowly withdrew the scope insufflating to look circumferentially at the hendrickson looking at the cecum, up the ascending colon to the hepatic flexure, down the transverse colon, the splenic flexure and then into the descending colon and in the descending colon saw small flat polyp. I elected to do a hot biopsy of this, took in 2 pieces and then continued down into the sigmoid and finally into the rectum, retroflexed the rectal vault, saw some minimal internal hemorrhoids, took a picture of this and then removed the scope. The patient tolerated the procedure and she was recovered in the endoscopy suite. Job ID: [id number] DocumentID: [id number] Dictated Date: 09/02/2017 14:23:05 Transfer Professor Date: 09/02/2017 21:44:23 Dictated By: DO YESIKA FOX
== END 2017-09-02 11:40 | disposition home or self-care (01) ==
LOC: ENDO 08:43
PROVIDERS: ATTEND Surgery
DX: Z12.11 Encounter for screening for malignant neoplasm of colon (principal); D12.4 Benign neoplasm of descending colon; K64.8 Other hemorrhoids; K29.70 Gastritis, unspecified, without bleeding; K44.9 Diaphragmatic hernia without obstruction or gangrene; K31.7 Polyp of stomach and duodenum; I10 Essential (primary) hypertension; R73.03 Prediabetes; Z79.899 Other long term (current) drug therapy

== ENCOUNTER → 2018-01-15 | Outpatient (REF) ==
[~2018-01-15] MED LIST changes: -AMLO10TA2 PO; +AMLO10TA6 PO; -ROPI0.25 PO; +ROPI0.253 PO
--- NOTE | 2018-01-15 14:16 | Diagnostic Imaging Report ---
INDICATION: Lifting injury with pain. AP, oblique and lateral views of the left hand are obtained. FINDINGS: No acute fracture or dislocation is identified. No abnormal lytic or sclerotic focus is seen, and there is no radiopaque foreign body. IMPRESSION: No acute abnormality. Dictated by: Dictated on workstation # [id number]
== END | disposition home or self-care (01) ==
LOC: OCC 13:46
PROVIDERS: ATTEND Nurse Practitioner Family
CPT/HCPCS: 73130

== ENCOUNTER 2018-08-07 08:49 | Outpatient (CLI) | payer BC ==
[~2018-08-07] VITALS: Ht 162.6 cm; Wt 106.3 kg
[~2018-08-07 08:49] MED LIST changes: -AMLO10TA6 PO; +AMLO10TA7 PO
[2018-08-07] MEDS ORDERED: DULO60CA58 PO (09:06)
[2018-08-07] MEDS ORDERED: AMIT25TA9 PO (09:06)
[2018-08-07] MEDS ORDERED: LOSA1TAB23 PO (09:06)
[2018-08-07 09:11] VITALS: BP 126/68
[2018-08-07 09:42] LABS: BASOPHILS % (AUTO) 0 % (0-10); EOSINOPHILS # (AUTO) 0.1 10^3/uL (0.0-0.3); EOSINOPHILS % (AUTO) 2 % (0-10); HEMATOCRIT 39 % (35-52); HEMOGLOBIN 12.8 G/DL (11.5-16.0); LYMPHOCYTES # (AUTO) 1.7 X 10^3 (1.0-4.0); LYMPHOCYTES % (AUTO) 28 % (12-44); MEAN CORPUSCULAR HEMOGLOBIN 29 PG (25-34); MEAN CORPUSCULAR HGB CONC 33 G/DL (32-36); MEAN CORPUSCULAR VOLUME 88 FL (80-99); MEAN PLATELET VOLUME 9.5 FL (7.4-10.4); MONOCYTES # (AUTO) 0.5 X 10^3 (0.0-1.0); MONOCYTES % (AUTO) 8 % (0-12); NEUTROPHILS # (AUTO) 3.6 X 10^3 (1.8-7.8); NEUTROPHILS % (AUTO) 61 % (42-75); PLATELET COUNT 328 10^3/uL (130-400); RED CELL DISTRIBUTION WIDTH 14.9 % (10.0-14.5); WHITE BLOOD COUNT 5.9 10^3/uL (4.3-11.0)
== END 2018-08-07 12:22 | disposition home or self-care (01) ==
LOC: PREOP 08:49
PROVIDERS: ATTEND Obstetrics & Gynecology
DX: Z01.812 Encounter for preprocedural laboratory examination (principal); Z11.2 Encounter for screening for other bacterial diseases; N81.4 Uterovaginal prolapse, unspecified; N39.46 Mixed incontinence; D64.9 Anemia, unspecified
CPT/HCPCS: 36415; 85025; 86850; 86900; 86901; 87081

== ENCOUNTER 2018-08-15 10:13 | Day surgery (SDC) | payer BC ==
[2018-08-15] VITALS (21 sets, daily range): BP systolic 83–165; BP diastolic 41–79
[~2018-08-15] VITALS: Ht 162.6 cm; Wt 106.3 kg
[~2018-08-15 10:13] MED LIST changes: +AMIT25TA9 PO; +LOSA1TAB23 PO
[2018-08-15] MEDS: LACTATED RINGERS 1,000 ML IV PRN ×3 (10:40→15:27)
[2018-08-15] MEDS ORDERED: ceFAZolin INJECTION 1,000 MG in WATER (STERILE) FOR INJECTION 10 ML IV ONE (11:00)
[2018-08-15] MEDS ORDERED: BUP/EPI 0.25% 1:200,000 (MARCAINE) 10 ML VIAL IJ ONE (11:11)
[2018-08-15] MEDS ORDERED: ESTRADIOL VAGINAL CREAM 42.5 GM (ESTRACE) VG ONE (11:11)
[2018-08-15] MEDS ORDERED: MIDAZOLAM 2 MG/2 ML (VERSED) VIAL ONE ×2 (11:27→12:05)
[2018-08-15] MEDS ORDERED: FAMOTIDINE 20MG/2ML IV (PEPCID) ONE (11:29)
[2018-08-15] MEDS ORDERED: CATHETER FLUSH 10 ML SYR IV PRN (11:30)
[2018-08-15] MEDS ORDERED: FAMOTIDINE 20MG/2ML IV (PEPCID) IVP ONE (11:30)
[2018-08-15] MEDS ORDERED: MIDAZOLAM 2 MG/2 ML (VERSED) VIAL IVP ONE (11:30)
--- NOTE | 2018-08-15 11:57 | Progress Note-Pre Operative ---
Pre-Operative Progress Note H&P Reviewed The H&P was reviewed, patient examined and no changes noted. Date Seen by Provider: August 15, 2018 Time Seen by Provider: 11:57 Date H&P Reviewed: August 15, 2018 Time H&P Reviewed: 11:57 Pre-Operative Diagnosis: MIXED INCONTINENCE, OAB AND ISD KENNETH BACA MD August 15, 2018 11:57
--- NOTE | 2018-08-15 11:58 | Progress Note-Post Operative ---
Post-Operative Progess Note Surgeon (s)/Key Account Director (s) Surgeon KENNETH BACA MD Key Account Director: Hector LANGE Pre-Operative Diagnosis MIXED INCONTINENCE, OAB AND ISD Post-Operative Diagnosis SAME Procedure & Operative Findings Date of Procedure 08/15/18 Procedure Performed/Findings PVS AND CYSTOSCOPY Anesthesia Type GENERAL Estimated Blood Loss Estimated blood loss (mL): NEGLIGIBLE Specimens/Packing Specimens Removed NONE Packing: ESTRACE VAGINAL PACK KENNETH BACA MD August 15, 2018 11:58
[2018-08-15] MEDS ORDERED: fentaNYL INJECTION 100 MCG/2 ML AMP ONE ×2 (12:04→15:49)
[2018-08-15] MEDS ORDERED: LIDOCAINE PF 2% 5 ML (XYLOCAINE) VIAL ONE (12:04)
[2018-08-15] MEDS ORDERED: proPOfol 200 MG/20 ML (DIPRIVAN) VIAL IV ONE (12:04)
[2018-08-15] MEDS ORDERED: SEVOFLURANE (ULTANE) 15 ML INHAL SOLN ONE ×8 (12:04→15:43)
[2018-08-15] MEDS ORDERED: ROCURONIUM 10 MG/ML 5 ML SYRINGE IV ONE (12:04)
[2018-08-15] MEDS ORDERED: ONDANSETRON 4 MG/2 ML (SDV) Z0FRAN ONE (12:04)
--- NOTE | 2018-08-15 13:07 | Progress Note-Pre Operative ---
Pre-Operative Progress Note H&P Reviewed The H&P was reviewed, patient examined and no changes noted. Date Seen by Provider: August 15, 2018 Time Seen by Provider: 13:06 Date H&P Reviewed: August 15, 2018 Time H&P Reviewed: 13:06 Pre-Operative Diagnosis: Uterovaginal prolapse/mixed urinary incontinence KALIE LANGE MD August 15, 2018 13:07
--- NOTE | 2018-08-15 13:08 | Progress Note-Post Operative ---
Post-Operative Progess Note Surgeon (s)/Delivery Nurse (s) Surgeon KALIE LANGE MD Delivery Nurse: Nicky Garcia Pre-Operative Diagnosis Uterovaginal prolapse/mixed urinary incontinence Post-Operative Diagnosis Same with pathology pending Procedure & Operative Findings Date of Procedure 08/15/18 Procedure Performed/Findings TH with BSO/anterior and posterior repairs with enterocele repair and with PVS and cystoscopy by Dr. BACA Anesthesia Type GETA Estimated Blood Loss Estimated blood loss (mL): 400cc Specimens/Packing Specimens Removed Uterus tubes and ovaries Packing: Kerlix to the vagina ESTRACE VAGINAL cream KALIE LANGE MD August 15, 2018 13:08
[2018-08-15] MEDS ORDERED: IBUP-1780 PO (13:14)
[2018-08-15] MEDS ORDERED: DOCU-143 PO (13:14)
[2018-08-15] MEDS ORDERED: ESTR1TAB24 PO (13:14)
[2018-08-15] MEDS ORDERED: OXYC1TAB87 PO (13:14)
[2018-08-15] MEDS ORDERED: KETOROLAC 30 MG/ML VIAL IVP SCH (13:15)
[2018-08-15] MEDS ORDERED: ONDANSETRON 4 MG/2 ML (SDV) Z0FRAN IVP PRN ×2 (13:15→15:45)
[2018-08-15] MEDS ORDERED: ESTROGENS CONJ IV 25 MG/5 ML (PREMARIN) VIAL IVP ONE (13:15)
[2018-08-15] MEDS ORDERED: BENZOCAINE/MENTHOL (DERMOPLAST) 56 ML CAN TP PRN (13:15)
[2018-08-15] MEDS ORDERED: PATIENT MAY USE OWN MEDS, ALL MC SCH (13:15)
[2018-08-15] MEDS ORDERED: WATER (STERILE) FOR INJ 10 ML BTL INJ ONE (13:15)
[2018-08-15] MEDS ORDERED: oxyCODONE/APAP 5/325MG (PERCOCET 5) TABLET PO PRN (13:15)
[2018-08-15] MEDS ORDERED: PROMETHAZINE INJ 25 MG/ML (PHENERGAN) AMP IM PRN (13:15)
[2018-08-15] MEDS ORDERED: MEPERIDINE (DEMEROL) INJ 100 MG/ML IM PRN (13:15)
--- NOTE | 2018-08-15 13:16 | Discharge Instructions ---
Discharge Instructions Discharge Medications New, Converted or Re-Newed RX: RX on Chart Patient Instructions Patient Instructions: As directed Return to The Hospital For: as directed Activity & Diet Discharge Diet: No Restrictions Activity as Tolerated: No Orders-Post D/C & Referrals Follow Up Appt: Return to clinic on Saturday August 18, 2018 at 930 a.m. for staple removal Call to make follow up appt. for patient in 4 weeks. Activity: Rest for 24 hours, than as tolerated. Wound Care: May remove Band-Aid tomorrow. Replace as desired. Keep incisions clean and dry. Wash daily with soap and water. Please call in RX to patient pharmacy. Continue all home medications Diet: As tolerated-Clear Liquids only if nauseated. may shower or tub bathe as desired. No driving for 24 hours, no alcoholic beverages for 24 hours, and nothing per vagina (no tampons, douching, or intercourse) for 2 weeks. Patient to return to the clinic as soon as possible for: Temperature greater than 101F, Severe Pain, Foul discharge from incision or vagina, Excessive Bleeding (more than a period). KALIE LANGE MD August 15, 2018 13:16
[2018-08-15] MEDS ORDERED: KETOROLAC 30 MG/ML VIAL ONE (14:19)
[2018-08-15] MEDS ORDERED: morphine INJ 10 MG/ML 1ML (SYR OR VIAL) ONE ×2 (14:20→15:11)
[2018-08-15] MEDS ORDERED: NEOSTIGMINE 1 MG/ML 5 ML SYRINGE ONE (15:17)
[2018-08-15] MEDS ORDERED: GLYCOPYRROLATE 0.2 MG/ML (ROBINUL) 2 ML VIAL ONE (15:17)
[2018-08-15] MEDS ORDERED: MEPERIDINE (DEMEROL) INJ 50 MG/ML IVP ONE (15:45)
[2018-08-15] MEDS ORDERED: fentaNYL INJECTION 100 MCG/2 ML AMP IVP ONE (15:45)
[2018-08-15] MEDS ORDERED: morphine INJ 10 MG/ML 1ML (SYR OR VIAL) IVP ONE (15:45)
[2018-08-15] MEDS ORDERED: MEPERIDINE (DEMEROL) INJ 50 MG/ML ONE (15:48)
[2018-08-15] MEDS ORDERED: NALOXONE 0.4 MG/ML 1 ML (NARCAN) VIAL ONE (16:09)
[2018-08-15 16:37] LABS: ABG OXYGEN SATURATION 98 % (94-100); ABG PCO2 51 MMHG (35-45); ABG PO2 117 MMHG (79-93); ABG TCO2 27.1 MMOL/L (21.0-31.0); ALLENS TEST YES-POS; INSPIRED O2 15L; VENTILATOR NO
[2018-08-15 16:40] LABS: ABG PH 7.32 (7.37-7.43); PATIENT TEMP 97.4
--- NOTE | 2018-08-15 16:57 | Inpatient Code Blue ---
General Stated Complaint: DYSFUNCTIONAL UTERINE BLEEDING Source: patient, other (Recovery nurse, Dr. Bearden, chart) Exam Limitations: clinical condition History of Present Illness Date Seen by Provider: August 15, 2018 Time Seen by Provider: 16:10 Initial Comments I responded to GISELE GALDAMEZ in the surgery recovery Center. Patient reportedly became hypoxic and then unresponsive with no respiratory effort. She required positive airway ventilation with BVM. By the time of my arrival she was starting to wake up and breathe independently. She still was hypoxic and requiring some support, but she was gradually becoming more alert and breathing better. Patient had a hysterectomy with AP repair. She had a large vaginal packing and was repeatedly complaining that she had to "go potty". Blood pressure and heart rate were unremarkable. Oxygen saturations were in the 90s with high flow supplement and BVM support. Patient has history of sleep apnea and uses CPAP. Allergies and Home Medications Allergies Uncoded Allergies: -mycins (Adverse Reaction, Mild, abd pain, 08/15/18) Home Medications Amitriptyline HCl 25 Mg Tablet, 25 MG PO HS, (Reported) Amlodipine Besylate 10 Mg Tablet, 10 MG PO HS, (Reported) Atorvastatin Calcium 10 Mg Tablet, 10 MG PO HS, (Reported) Cetirizine HCl 10 Mg Capsule, 10 MG PO DAILY, (Reported) Cholecalciferol (Vitamin D3) 1,000 Unit Capsule, 1,000 UNIT PO DAILY, (Reported) Docusate Sodium 100 Mg Capsule, 100 MG PO BID Prescribed by: KALIE MONTALVO on 08/15/181313 Duloxetine HCl 60 Mg Capsule., 120 MG PO DAILY, (Reported) Estradiol 1 Mg Tablet, 1 MG PO DAILY Prescribed by: KALIE MONTALVO on 08/15/181313 Ibuprofen 800 Mg Tablet, 800 MG PO Q6H PRN for PAIN Prescribed by: KALIE MONTALVO on 08/15/181313 Losartan/Hydrochlorothiazide 1 Each Tablet, 1 EACH PO DAILY, (Reported) Omeprazole 20 Mg Tablet.dr, 40 MG PO DAILY, (Reported) take 2 (20mg) tabs Oxycodone HCl/Acetaminophen 1 Each Tablet, 1 TAB PO Q4H Prescribed by: KALIE MONTALVO on 08/15/181313 Ropinirole HCl 0.5 Mg Tablet, 0.5 MG PO BID, (Reported) Patient Home Medication List Home Medication List Reviewed: Yes Physical Exam Vital Signs Vital Signs - First Documented 08/15/18 10:30 Temp 98.4 Pulse 81 Resp 16 B/P (MAP) 128/77 (94) Pulse Ox 98 O2 Delivery Room Air Capillary Refill : Height, Weight, BMI Height: 5'4.00" Weight: 234lbs. 5.0oz. 106.617460na; 40.2 BMI Method:Stated General Appearance: mild distress Ears, Nose, Throat: normal ENT inspection Neck: normal inspection Respiratory: other (decreased respiratory effort. Lung sounds clear with BVM assistance. Breath sounds equal bilaterally with equal chest rise) Cardiovascular: normal peripheral pulses, regular rate, rhythm, no edema Extremities: normal inspection, no pedal edema Neurologic/Psychiatric: other (patient disoriented. Increasing level of alertness. Speaking in full sentences by the end of my encounter) Skin: normal color, warm/dry Progress/Results/Core Measures Results/Orders Lab Results Laboratory Tests Test 08/15/18 16:20 08/15/18 16:35 Range/Units Glucometer 189 H 70-110 MG/DL Blood Gas Puncture Site RR Blood Gas Patient Temperature 97.4 Arterial Blood pH 7.32 *L 7.37-7.43 Arterial Blood Partial Pressure CO2 51 H 35-45 MMHG Arterial Blood Partial Pressure O2 117 H 79-93 MMHG Arterial Blood HCO3 26 23-27 MMOL/L Arterial Blood Total CO2 27.1 21.0-31.0 MMOL/L Arterial Blood Oxygen Saturation 98 94-100 % Arterial Blood Base Excess 0.0 -2.5-2.5 MMOL/L Ramon Test YES-POS Blood Gas Ventilator Setting NO Blood Gas Inspired Oxygen 15L My Orders Orders - ABBE SEARS MD Arterial Blood Gas (08/15/18 16:28) Code/Resuscitation (08/15/18 16:30) Isolation Central Supply Req (08/15/18 16:30) Consult Family Medicine (08/15/18 16:50) Consult Pulmonology (08/15/18 16:50) Medications Given in ED Current Medications Medications Dose Ordered Sig/Isa Route Start Time Stop Time Status Last Admin Dose Admin Bupivacaine HCl/ Epinephrine Bitart 10 ml STK-MED ONCE IJ 08/15/18 11:11 08/15/18 11:16 DC 08/15/18 13:29 10 ML Cefazolin Sodium 1000 mg/Sterile Water 10 ml @ 200 mls/hr ONCE ONCE IV 08/15/18 11:00 08/15/18 11:15 DC 08/15/18 13:19 200 MLS/HR Famotidine 20 mg ONCE ONCE IVP 08/15/18 11:30 08/15/18 11:40 DC 08/15/18 11:34 20 MG Lactated Ringer's 1,000 ml @ 0 mls/hr Q0M PRN IV 08/15/18 10:49 08/15/18 13:45 0 MLS/HR Midazolam HCl 2 mg ONCE ONCE IVP 08/15/18 11:30 08/15/18 11:40 DC 08/15/18 13:03 2 MG Vital Signs/I&O 08/15/18 10:30 Temp 98.4 Pulse 81 Resp 16 B/P (MAP) 128/77 (94) Pulse Ox 98 O2 Delivery Room Air Blood Pressure Mean: 94 Progress Progress Note : Progress Note Patient briefly required positive ventilation assistance. BiPAP was prepared b ut patient did not ultimately need it. ABG was obtained and will be called to Dr. Ambrocio. I facilitated consultation with Dr. Ambrocio and Dr. Manriquez on behalf of Dr. Rowan. Vital signs were stable on OxyMask. ABBE SEARS MD August 15, 2018 16:57
--- NOTE | 2018-08-15 21:48 | OPERATIVE REPORT ---
DATE OF SERVICE: 08/15/2018 PREOPERATIVE DIAGNOSES: For my part, mixed urinary incontinence with overactive bladder and intrinsic sphincter deficiency. POSTOPERATIVE DIAGNOSES: For my part, mixed urinary incontinence with overactive bladder and intrinsic sphincter deficiency. OPERATION PERFORMED: Pubovaginal sling and cystoscopy. SURGEON: Kenneth Baca MD COSTUME DESIGN TEACHER: Garrett Rowan MD COMPLICATIONS: None. PROCEDURE: Under satisfactory general, the patient in extended lithotomy position and after Dr. Rowan performed the first part of his surgery that he would dictate. We went ahead and reinserted the Howell catheter draining clear urine. I passed the Solyx device on both sides using a described technique and the sling was sitting nicely under the mid urethra with no tension, no twist and passage of a curved hemostat easily between it and the underlying tissue. I removed the Howell catheter to perform cystoscopy to confirm the integrity of the bladder, ureters and urethra with no foreign body and the presence of the sling under the mid urethra. I left the bladder half full to perform a manual Valsalva maneuver after removing the cystoscope and it was negative. Howell catheter was reinserted draining clear fluid. Estimated blood loss for my part less than 50 mL, none of which was replaced and Dr. Rowan proceeded with the rest of the surgery that he will dictate. Job ID: [id number] DocumentID: [id number] Dictated Date: 08/15/2018 14:58:23 Environmental Professional Date: 08/15/2018 21:48:40 Dictated By: KENNETH BACA MD
[2018-08-15] MEDS: KETOROLAC 30 MG/ML VIAL IVP SCH (22:11)
[2018-08-15] MEDS: D5 LR IV SOLUTION 1,000 ML IV SCH ×2 (22:15→22:19)
[2018-08-16] VITALS (15 sets, daily range): BP systolic 104–144; BP diastolic 44–77
--- NOTE | 2018-08-16 00:02 | OPERATIVE REPORT ---
DATE OF SERVICE: 08/15/2018 PREOPERATIVE DIAGNOSES: Uterovaginal prolapse and stress urinary incontinence. POSTOPERATIVE DIAGNOSES: Uterovaginal prolapse and stress urinary incontinence. OPERATIVE PROCEDURE: Total laparoscopic hysterectomy with bilateral salpingo-oophorectomy as well as anterior and posterior vaginal repairs with Dr. Cuba performing a pubovaginal sling and cystoscopy. OPERATIVE DESCRIPTION: With the patient in the supine position under satisfactory general anesthesia, she was repositioned in dorsal lithotomy position and then positioned, prepped and draped in the usual fashion for abdominal vaginal surgery using robotic assistance. Howell catheter was placed in the urinary bladder. Weighted speculum placed in the posterior fornix of vagina, cervix exposed and grasped anteriorly with single tooth tenaculum and the uterus was sounded to 9.5 cm with uterine sound. The cervix was then serially dilated with Travon dilators to accommodate a Angela II manipulator, which was placed in the usual manner with a 25 mm colpotomy ring and a 6 mm x 8 cm uterine probe. Sutures of #1 Vicryl placed at 3 and 9 o'clock position of the cervix to affix the uterus to the manipulator. The patient was brought in low dorsal lithotomy position. A 12 mm incision was made 4 cm superior to the umbilicus. Veress needle was placed through that incision into the abdominal cavity. Correct placement confirmed with water drop test and the abdomen insufflated with 2.4 liters of carbon dioxide. The Veress needle was removed and a 12 mm Optiview laparoscopic port placed. The abdominal wall was transilluminated and ports of 8 mm were placed and through incision 9 cm lateral to the umbilicus at the level of the umbilicus. All three skin incisions were infiltrated with 0.25% Marcaine with epinephrine prior to incision and port placement. The patient was now placed in Trendelenburg allowing the bowel to spill up out of the pelvis. The da Eren column was advanced on the patient and docked and operative instrument placed in the right and left lateral ports and I retired to the operative console. At the console using a vessel sealer on the right and a bipolar fenestrated grasper on the left, the pelvis was first examined. The uterus was small somewhat mottled in appearance consistent with adenomyosis, but otherwise normal. The ovaries were somewhat atretic appearing. Both fallopian tubes were somewhat normal appearing, somewhat tortuous and fibrotic. There was dense fibrous tissue around the cervix and attached to the lower uterine segment anteriorly and posteriorly. The appendix was identified. It was a normal vermiform appendix. Both ureters were seemed through the peritoneum and were seemed to peristalse. The uterus was anteverted. The right tube and ovary were grasped and elevated. The vessel sealer was used to clamp, cauterize and divide the IP ligament and the mesovarium, and then the round ligament and broad ligament and cardinal ligament on the right. Same procedure performed on the left, allowing for removal of both tubes and ovaries eventually with the uterus. The anterior lower uterine segment peritoneum was exposed and then by dissecting down off lower uterine segment. The bladder was dissected down off the lower uterine segment well. Colpotomy incision was made at 12 o'clock position onto the colpotomy ring. That incision was continued circumferentially until the entire colpotomy ring was exposed and then the uterus with the tubes and ovaries still attached was extracted through the vagina. The vaginal cuff was closed with a single suture of V-Loc barbed suture starting first from the right angle continued all the way across the cuff until the entire cuff was closed and then the last two stitches were used to reapproximate the bladder peritoneum onto the vaginal cuff. Care was taken to ensure inclusion of the uterine vessel pedicles with the angle stitches of the vaginal closure. With the laparoscopic portion completed, the operative instruments were removed. The operative ports were removed under direct vision. No bleeding was noted from the port sites. The abdomen was evacuated of the insufflating gas in the process of removing the ports. The skin incisions were closed with huong after closing the fascia at the supraumbilical incision with a [id number]-ei-cwyef suture of 2-0 Vicryl. The patient now repositioned in dorsal lithotomy position for the anterior and posterior repair. The anterior repair was affected by placing weighted speculum posterior fornix of vagina. The anterior vaginal wall was grasped with two Adenike clamps. Vaginotomy incision was made lengthwise along the vagina allowing for access to the vesicovaginal space, which was developed allowing access to the pubic rami bilaterally. The bladder wall and endopelvic fascia were plicated with a single suture of 2-0 Vicryl Rapide this elevated the bladder and lengthening the urethra. At this point, Dr. Cuba assumed care of the patient for pubovaginal sling and cystoscopy, which I remained to assist and which he will dictate. Upon completion of his portion of the procedure, Howell catheter was placed in the urinary bladder was draining clear yellow urine. I resumed care of the patient, resected redundant anterior vaginal muscularis mucosa and the vaginal wall was closed with a running locked suture of 2-0 Vicryl. Posterior repair was then affected by placing Adenike clamps on the perineum and the hymenal ring at 5 and 7 o'clock position and inverted triangle of skin was removed from the perineal body and upright triangle from the posterior vaginal floor. The rectovaginal space was entered sharply and dissected bluntly to the apex of vagina where it was explored, for an enterocele, there being a small when it was reduced and plicated with 2-0 Vicryl pursestring suture completely obliterating the enterocele. The rectovaginal space was then obliterated with additional sutures of 2-0 Vicryl. The perineal body was restored with 2-0 Vicryl pop-off sutures. The redundant posterior vaginal muscularis mucosa was removed sharply and the vaginal wall was closed with running locked suture of 3-0 Vicryl Rapide. Good support was evident. Good reapproximation and good hemostasis was achieved. Digital rectal exam confirmed no stricture or stenosis of the rectum. There were no sutures into or through the rectal mucosa. The bladder was draining clear yellow urine and Dr. Cuba to perform cystoscopy to ensure no damage to the bladder. At this point, the procedure was terminated. The vagina was filled with Estrace vaginal cream and a pack of Kerlix gauze was placed. Sponge and needle counts were correct at the end of procedure. Estimated blood loss for procedure was around 400 mL. The patient tolerated the procedure well and was uneventfully awakened from her general anesthesia and transferred to recovery room in stable condition. Job ID: [id number] DocumentID: [id number] Dictated Date: 08/15/2018 16:50:09 Medical Concierge Date: 08/16/2018 00:01:53 Dictated By: KALIE LANGE MD
[2018-08-16] MEDS: KETOROLAC 30 MG/ML VIAL IVP SCH (03:00)
[2018-08-16 03:35] LABS: BASOPHILS % (AUTO) 0 % (0-10); EOSINOPHILS % (AUTO) 0 % (0-10); HEMATOCRIT 28 % (35-52); HEMOGLOBIN 9.1 G/DL (11.5-16.0); LYMPHOCYTES # (AUTO) 1.1 X 10^3 (1.0-4.0); LYMPHOCYTES % (AUTO) 7 % (12-44); MEAN CORPUSCULAR HEMOGLOBIN 29 PG (25-34); MEAN CORPUSCULAR HGB CONC 32 G/DL (32-36); MEAN CORPUSCULAR VOLUME 91 FL (80-99); MONOCYTES # (AUTO) 0.7 X 10^3 (0.0-1.0); MONOCYTES % (AUTO) 4 % (0-12); NEUTROPHILS # (AUTO) 14.2 X 10^3 (1.8-7.8); NEUTROPHILS % (AUTO) 89 % (42-75); PLATELET COUNT 329 10^3/uL (130-400); RED CELL DISTRIBUTION WIDTH 14.6 % (10.0-14.5)
[2018-08-16 03:55] LABS: CALCIUM 8.3 MG/DL (8.5-10.1); CREATININE SERUM 1.08 MG/DL (0.60-1.30); MAGNESIUM 1.8 MG/DL (1.8-2.4); PHOSPHORUS 3.8 MG/DL (2.3-4.7); POTASSIUM 4.4 MMOL/L (3.6-5.0)
[2018-08-16 04:20] LABS: BAND NEUTROPHILS 8 %; LYMPHOCYTES % (MANUAL) 7 %; MONOCYTES % (MANUAL) 5 %; NEUTROPHILS % (MANUAL) 80 %; RBC MORPH NORMAL
[2018-08-16] MEDS: D5 LR IV SOLUTION 1,000 ML IV SCH ×2 (04:49→08:15)
[2018-08-16] MEDS ORDERED: MAGNESIUM 1 GM/100 ML IVPB 100 ML IV SCH (06:00)
[2018-08-16] MEDS ORDERED: POTASSIUM CL 10MEQ/50ML IVPB 50 ML IV SCH (06:00)
[2018-08-16] MEDS ORDERED: LACTATED RINGERS 1,000 ML IV ONE (06:00)
[2018-08-16] MEDS ORDERED: KCL 20 MEQ TAB (K-DUR) PO SCH (06:00)
--- NOTE | 2018-08-16 06:00 | NUR ---
VAGINAL PACKING REMOVED AT THIS TIME WITHOUT DIFFICULTY. PATIENT TOLERATED WELL. URINE OUTPUT DISCUSSED WITH DR. PALMER. ORDER RECEIVED FOR 1 L LR BOLUS AND TO KEEP FERNÁNDEZ IN AT THIS TIME TO MONITOR URINE OUTPUT.
--- NOTE | 2018-08-16 06:59 | Pulmonary Consultation ---
History of Present Illness History of Present Illness Date of Consultation 08/16/18 06:54 Time Seen by Provider: 06:54 Date of Admission History of Present Illness 57yo with hx of JAM s/p hysterectomy with AP repair went into respiratory distress after surgery then became unresponsive. GISELE salinas was called. Pt never lost pulse and no chest compressions were done. PT was bagged/masked during this time. PT did wake up and followed commands. She was transferred to ICU for close monitoring. I am consulted for pulmonary/ICU management. Allergies and Home Medications Allergies Uncoded Allergies: -mycins (Adverse Reaction, Mild, abd pain, 08/15/18) Home Medications Amitriptyline HCl 25 Mg Tablet, 25 MG PO HS, (Reported) Amlodipine Besylate 10 Mg Tablet, 10 MG PO HS, (Reported) Atorvastatin Calcium 10 Mg Tablet, 10 MG PO HS, (Reported) Cetirizine HCl 10 Mg Capsule, 10 MG PO DAILY, (Reported) Cholecalciferol (Vitamin D3) 1,000 Unit Capsule, 1,000 UNIT PO DAILY, (Reported) Docusate Sodium 100 Mg Capsule, 100 MG PO BID Prescribed by: KALIE MONTALVO on 08/15/181313 Duloxetine HCl 60 Mg Capsule.dr, 120 MG PO DAILY, (Reported) Estradiol 1 Mg Tablet, 1 MG PO DAILY Prescribed by: KALIE MONTALVO on 08/15/181313 Ibuprofen 800 Mg Tablet, 800 MG PO Q6H PRN for PAIN Prescribed by: KALIE MONTALVO on 08/15/181313 Losartan/Hydrochlorothiazide 1 Each Tablet, 1 EACH PO DAILY, (Reported) Omeprazole 20 Mg Tablet.dr, 40 MG PO DAILY, (Reported) take 2 (20mg) tabs Oxycodone HCl/Acetaminophen 1 Each Tablet, 1 TAB PO Q4H Prescribed by: KALIE MONTALVO on 08/15/18 1314 Ropinirole HCl 0.5 Mg Tablet, 0.5 MG PO BID, (Reported) Past Ubagqst-Qjfcae-Ijrsfp Hx Patient Social History Alcohol Use: Occasionally Uses Number of Drinks Today: DD Alcohol Beverage of Choice: Rum Recreational Drug Use: No Smoking Status: Former Smoker Type Used: Cigarettes Former Smoker, Quit: August 07, 1996 2nd Hand Smoke Exposure: Yes Recent Foreign Travel: No Contact w/Someone Who Travel: No Recent Infectious Disease Expo: No Recent Hopitalizations: No Immunizations Up To Date Tetanus Booster (TDap): Unknown Date of Pneumonia Vaccine: Dec 24, 2016 Date of Influenza Vaccine: Dec 23, 2017 Seasonal Allergies Seasonal Allergies: Yes Past Medical History Surgeries: Yes (R CARPEL TUNNEL) Orthopedic Respiratory: Yes Chronic Bronchitis, Sleep Apnea Currently Using CPAP: Yes Currently Using BIPAP: No Cardiac: Yes Heart Murmur, High Cholesterol, Hypertension Neurological: Yes Neuropathy 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 Disorders: 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 Sexually Transmitted Disease: No HIV/AIDS: No Genitourinary: Yes (MIXED INCONT) Gastrointestinal: Yes Gastroesophageal Reflux Musculoskeletal: Yes (RESTLESS LEGS) Degenerate Disk Disease, Fibromyalgia, Chronic Back Pain Endocrine: Yes (was on Metformin but dr had her stop recently due to normal A1C) Diabetes, Non-Insulin dep HEENT: Yes (GLASSES, PARTIAL PLATE) Loss of Vision: Bilateral Hearing Impairment: Denies Cancer: No Psychosocial: Yes Anxiety, Depression Integumentary: No Blood Disorders: No Adverse Reaction/Blood Tranf: No (N/A) Family Medical History Cardiovascular disease paternal grandfather maternal grandfather (chf) Diabetes mellitus paternal grandfather Myocardial infarction 19 FATHER Respiratory disorder 19 MOTHER (copd) Diabetes Sepsis Event Evaluation Height, Weight, BMI Height: 5'4.00" Weight: 234lbs. 5.0oz. 106.825015nv; 40.2 BMI Method:Stated Exam Exam Vital Signs Date Time Temp Pulse Resp B/P (MAP) Pulse Ox O2 Delivery O2 Flow Rate FiO2 08/16/18 06:43 92 Nasal Cannula 4.00 08/16/18 06:42 Room Air 08/16/18 06:00 82 18 115/70 (85) 98 NIV CPAP 4.00 08/16/18 05:00 77 16 120/73 (89) 97 NIV CPAP 4.00 08/16/18 04:00 75 18 126/61 (82) 97 NIV CPAP 4.00 08/16/18 04:00 97 NIV CPAP 4.00 08/16/18 03:00 90 20 104/73 (83) 99 NIV CPAP 4.00 08/16/18 02:00 74 18 115/70 (85) 98 NIV CPAP 4.00 08/16/18 01:02 NIV CPAP 4.00 08/16/18 01:00 71 17 120/75 (90) 97 Vapotherm 40.00 40.00 08/16/18 01:00 76 08/16/18 00:00 98 Vapotherm 40.00 40 08/16/18 00:00 71 16 130/74 (92) 96 Vapotherm 40.00 40.00 08/15/18 23:00 78 13 132/63 (86) 100 Vapotherm 40.00 40.00 08/15/18 22:14 NIV CPAP 4.00 08/15/18 22:00 92 16 98/76 (83) 92 Vapotherm 40.00 40.00 08/15/18 21:00 81 29 126/77 (93) 97 Vapotherm 40.00 40.00 08/15/18 20:00 90 19 113/77 (89) 100 Vapotherm 40.00 40.00 08/15/18 20:00 98 Vapotherm 40.00 40 08/15/18 19:37 96.4 75 12 109/65 (80) 99 Vapotherm 40.00 40.00 08/15/18 19:00 79 08/15/18 19:00 80 19 112/69 (83) 100 Vapotherm 40.00 40.00 08/15/18 18:00 92 24 99/64 (76) 94 Vapotherm 40.00 40.00 08/15/18 17:45 96 13 83/41 (55) 87 Vapotherm 40.00 40.00 08/15/18 17:42 93 08/15/18 17:42 93 08/15/18 17:30 85 29 94/44 (61) Vapotherm 40.00 40.00 08/15/18 17:15 76 25 103/55 (71) 93 Vapotherm 40.00 40.00 08/15/18 17:00 65 20 114/46 (68) 93 Vapotherm 40.00 40.00 08/15/18 16:55 91 Vapotherm 40.00 40 08/15/18 16:40 97.1 21 94 OxyMask 5 08/15/18 16:30 11 97 OxyMask 10 08/15/18 16:20 22 99 OxyMask 15 08/15/18 16:10 21 99 Ambu Bag 15 08/15/18 16:00 22 92 OxyMask 15 08/15/18 15:50 13 92 Non Rebreather 15 08/15/18 15:40 20 88 Non Rebreather 15 08/15/18 15:30 20 87 OxyMask 15 08/15/18 15:26 98.3 24 90 OxyMask 10 08/15/18 10:30 98.4 81 16 128/77 (94) 98 Room Air I & O 08/16/18 07:00 Intake Total 3010 ml Output Total 830 ml Balance 2180 ml Height & Weight Height: 5'4.00" Weight: 234lbs. 5.0oz. 106.877450kr; 40.2 BMI Method:Stated Results Lab Laboratory Tests 08/16/18 03:15 Assessment/Plan Assessment/Plan Acute respiratory distress probably secondary to sedation and JAM -BiPAP PRN and Vapotherm -ABG - C02 51 -Will repeat ABG S/p hysterectomy with AP repair AJM leukocytosis -reactive Anemia - monitor Decreased UO -Will give a liter bolus of LR FROILAN PALMER DO Aug 16, 2018 06:59
--- NOTE | 2018-08-16 07:33 | Diagnostic Imaging Report ---
Portable erect AP chest at 3:46 p.m. INDICATION: Dyspnea. FINDINGS: Heart size is within normal limits and stable when compared to 08/10/2017. In the interval since the prior study, a faint band of atelectasis/infiltrate has developed in the left lung base. Lungs are otherwise clear. The mediastinum is not widened. The osseous structures are intact. IMPRESSION: A faint band of atelectasis/infiltrate has developed in the left lung base since the prior study. There is no acute cardiopulmonary abnormality noted otherwise. Dictated by: Dictated on workstation # [id number]
--- NOTE | 2018-08-16 08:34 | Progress Note-Standard ---
Standard Progress Note Progress Notes/Assess & Plan Date Seen by a Provider: Aug 16, 2018 Time Seen by a Provider: 08:30 Progress/Assessment & Plan Patient is without complaint except for having lost gas. She denies shortness of breath, denies nausea vomiting, denies headache. Patient has adequate pain control. Vital Signs Date Time Temp Pulse Resp B/P (MAP) Pulse Ox O2 Delivery O2 Flow Rate FiO2 08/16/18 08:00 110 16 111/44 (66) Room Air 08/16/18 07:00 83 08/16/18 07:00 89 12 111/44 (66) 95 Room Air 08/16/18 06:43 92 Nasal Cannula 4.00 08/16/18 06:42 Room Air 08/16/18 06:00 82 18 115/70 (85) 98 NIV CPAP 4.00 08/16/18 05:00 77 16 120/73 (89) 97 NIV CPAP 4.00 08/16/18 04:00 75 18 126/61 (82) 97 NIV CPAP 4.00 08/16/18 04:00 97 NIV CPAP 4.00 08/16/18 03:00 90 20 104/73 (83) 99 NIV CPAP 4.00 08/16/18 02:00 74 18 115/70 (85) 98 NIV CPAP 4.00 08/16/18 01:02 NIV CPAP 4.00 08/16/18 01:00 71 17 120/75 (90) 97 Vapotherm 40.00 40.00 08/16/18 01:00 76 08/16/18 00:00 98 Vapotherm 40.00 40 08/16/18 00:00 71 16 130/74 (92) 96 Vapotherm 40.00 40.00 08/15/18 23:00 78 13 132/63 (86) 100 Vapotherm 40.00 40.00 08/15/18 22:14 NIV CPAP 4.00 08/15/18 22:00 92 16 98/76 (83) 92 Vapotherm 40.00 40.00 08/15/18 21:00 81 29 126/77 (93) 97 Vapotherm 40.00 40.00 08/15/18 20:00 90 19 113/77 (89) 100 Vapotherm 40.00 40.00 08/15/18 20:00 98 Vapotherm 40.00 40 08/15/18 19:37 96.4 75 12 109/65 (80) 99 Vapotherm 40.00 40.00 08/15/18 19:00 79 08/15/18 19:00 80 19 112/69 (83) 100 Vapotherm 40.00 40.00 08/15/18 18:00 92 24 99/64 (76) 94 Vapotherm 40.00 40.00 08/15/18 17:45 96 13 83/41 (55) 87 Vapotherm 40.00 40.00 08/15/18 17:42 93 08/15/18 17:42 93 08/15/18 17:30 85 29 94/44 (61) Vapotherm 40.00 40.00 08/15/18 17:15 76 25 103/55 (71) 93 Vapotherm 40.00 40.00 08/15/18 17:00 65 20 114/46 (68) 93 Vapotherm 40.00 40.00 08/15/18 16:55 91 Vapotherm 40.00 40 08/15/18 16:40 97.1 21 94 OxyMask 5 08/15/18 16:30 11 97 OxyMask 10 08/15/18 16:20 22 99 OxyMask 15 08/15/18 16:10 21 99 Ambu Bag 15 08/15/18 16:00 22 92 OxyMask 15 08/15/18 15:50 13 92 Non Rebreather 15 08/15/18 15:40 20 88 Non Rebreather 15 08/15/18 15:30 20 87 OxyMask 15 08/15/18 15:26 98.3 24 90 OxyMask 10 08/15/18 10:30 98.4 81 16 128/77 (94) 98 Room Air I & O 08/16/18 07:00 Intake Total 4010 ml Output Total 830 ml Balance 3180 ml Vital signs are stable. Patient is afebrile. Laboratory Tests 08/16/18 03:15 Lab work is normal. Patient is mildly anemic The abdomen is benign extremities show no clubbing or cyanosis Pelvic exam is deferred Assessment and plan postoperative day number 1 doing well. Patient did have a hypoxic episode in the recovery room. This appears to me to be related to sedation effect of narcotics and very likely a vasovagal reflex response to david ent straining against the vaginal packing. She does seem to have recovered without any sequelae Appreciate Dr. Cochran managing the patient acutely in the recovery room and proceeded Dr. Ambrocio's attention currently. When patient is deemed stable then she can be transferred to the third floor for routine postoperative care Final Diagnosis Uterovaginal prolapse and stress incontinence KALIE LANGE MD Aug 16, 2018 08:34
[2018-08-16] MEDS ORDERED: BENZOCAINE/MENTHOL (DERMOPLAST) 56 ML CAN TP PRN (08:45)
[2018-08-16] MEDS ORDERED: oxyCODONE/APAP 5/325MG (PERCOCET 5) TABLET PO PRN (08:45)
[2018-08-16] MEDS ORDERED: ONDANSETRON 4 MG (ZOFRAN) ORAL DISSOLVE TAB PO PRN (08:45)
[2018-08-16 08:54] LABS: ABG BASE EXCESS -1.1 MMOL/L (-2.5-2.5); ABG OXYGEN SATURATION 96 % (94-100); ABG PCO2 35 MMHG (35-45); ABG PH 7.43 (7.37-7.43); ABG PO2 73 MMHG (79-93); ABG TCO2 23.6 MMOL/L (21.0-31.0)
[2018-08-16 08:55] LABS: ALLENS TEST YES-POS; INSPIRED O2 ROOM AIR; VENTILATOR NO
[2018-08-16 08:56] LABS: PATIENT TEMP 98.9
[2018-08-16] MEDS ORDERED: ESTRADIOL 1 MG TAB (ESTRACE) PO SCH (09:00)
[2018-08-16] MEDS ORDERED: DOCUSATE SODIUM 100 MG (COLACE) CAP PO SCH ×3 (09:00→21:00)
[2018-08-16] MEDS ORDERED: KETOROLAC 30 MG/ML VIAL ONE (09:41)
--- NOTE | 2018-08-16 10:12 | NUR ---
Pt transferred to 3rd floor at this time via wheelchair. VSS prior to transfer. Personal belongings transferred with pt at this time. Bedside report given.
--- NOTE | 2018-08-16 10:20 | NUR ---
ALBAN ARELLANO TRANSPORTED to room 3306-1 BY ,from ICU , accompanied by .ALBAN ARELLANO introduced to surroundings, call light, bed controls, phone, TV, temperature control, lights, meal times, smoking policy, visitor policy, side rail policy, bathrooms and showers. Patient Rights given to patient in the handbook.ALBAN ARELLANO verbalizes understanding that [facility] is not responsible for the loss or damage to any personal effects or valuables that are kept in the patients posession during their hospitalization. The following Patient Care Plans were discussed with the : Discharge Planning, ,, and . ALBAN ARELLANO verbalizes understanding of Interdisciplinary Patient Education. Patient and/or family were informed about the Rapid Response Team and its purpose.
--- NOTE | 2018-08-16 10:30 | NUR ---
INITIAL ASSESSMENT COMPLETED, VSS, PT ALERT AND AWAKE, PTS S/O AT SIDE, SEE INTERVENTIONS FOR DETAILED ASSESSMENTS, PLAN OF CARE EXPLAINED PT VERBALIZES UNDERSTANDING, NO QUESTIONS OR CONCERNS AT THIS TIME, WILL MONITOR CLOSELY.
--- NOTE | 2018-08-16 10:34 | Anesthesia-General Post-Op ---
General Patient Condition Mental Status/LOC: Same as Preop Cardiovascular: Satisfactory Nausea/Vomiting: Absent Respiratory: Satisfactory Pain: Controlled Complications: Absent Post Op Complications Complications None Follow Up Care/Instructions Patient Instructions None needed. Anesthesia/Patient Condition Patient Condition Patient is doing well, no complaints, stable vital signs, no apparent adverse anesthesia problems. No complications reported per nursing. DANO HEMPHILL CRNA Aug 16, 2018 10:34
--- NOTE | 2018-08-16 10:45 | NUR ---
DR BACA AT BEDSIDE, NEW ORDERS RECEIVED.
--- NOTE | 2018-08-16 11:00 | NUR ---
PERICARE COMPLETED, PAD AND PANTIES ON, ICE PACK TO PERINEUM AND ABDOMEN, FRESH ICE WATER TO PT.
--- NOTE | 2018-08-16 11:08 | Progress Note-Urology ---
Progress Note-Urology Progress Notes/Assess & Plan Progress/Assessment & Plan AGREE WITH LESLIE LANGE AND ESTELA EVALUATION AND PLAN. FERNÁNDEZ OUT. NOT VOIDED YET. PLAN ENCOURAGE AMBULATION WITH ASSISTANCE AND CHECK CBC IN AM Final Diagnosis INCONTINENCE KENNETH BACA MD Aug 16, 2018 11:08
--- NOTE | 2018-08-16 11:45 | Consultation-Hospitalist ---
HPI History of Present Illness: HPI/Chief Complaint CC: Respiratory arrest s/p uncomplicated Hyst by Dr Rowan POD # 1 HPI: This is a 57yoWF clinic patient of Dr Manzo since 04/05 who has a h/o JAM on biPAP since 2013 who presented to the ICU s/p respiratory arrest in recovery after uncomplicated Hyst by Dr Rowan yesterday. Apparently she did well but then rapidly decompensated requiring a Code Blue being called but did not require intubation and overall became stable quickly on aggressive respiratory support. Currently patient is now on Women's Services and complaining of urinary retention and pressure and overall feels fatigued but is wearing her CPAP nasal unit from home during her nap that I interrupted. I have reviewed her labs and imaging and the Code Blue note. Source: patient Exam Limitations: no limitations Date Seen 08/16/18 Attending Physician Garrett Rowan MD PCP Jose Cruz Manzo DO Referring Physician Date of Admission Home Medications & Allergies Home Medications Reviewed patient Home Medication Reconciliation performed by pharmacy medication reconciliations commercial kitchen service technician and/or nursing. Patients Allergies have been reviewed. 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) Alcohol Use: Occasionally Uses Number of Drinks Today: DD Alcohol Beverage of Choice: Rum Recreational Drug Use: No Smoking Status: Former Smoker Former Smoker, Quit: August 07, 1996 Type Used: Cigarettes 2nd Hand Smoke Exposure: Yes Recent Foreign Travel: No Contact w/other who traveled: No Recent Hopitalizations: No Recent Infectious Disease Expo: No Immunizations Up To Date Tetanus Booster (TDap): Unknown Date of Pneumonia Vaccine: Dec 24, 2016 Date of Influenza Vaccine: Dec 23, 2017 Seasonal Allergies Seasonal Allergies: Yes Past Medical History Surgeries: Hysterectomy, Orthopedic Respiratory: Sleep Apnea Currently Using CPAP: Yes Currently Using BIPAP: No Cardiac: Heart Murmur, High Cholesterol, Hypertension Neurological: Neuropathy 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: No Sexually Transmitted Disease: No HIV/AIDS: No Menopausal Gastrointestinal: Gastroesophageal Reflux Musculoskeletal: Degenerate Disk Disease, Fibromyalgia, Chronic Back Pain Endocrine: Diabetes, Non-Insulin dep Loss of Vision: Bilateral Hearing Impairment: Denies Psychosocial: Anxiety, Depression History of Blood Disorders: No Adverse Reaction to Blood Tillman: No (N/A) Family History Cardiovascular disease paternal grandfather maternal grandfather (chf) Diabetes mellitus paternal grandfather Myocardial infarction 19 FATHER Respiratory disorder 19 MOTHER (copd) Diabetes Review of Systems Constitutional: see HPI, weakness EENTM: no symptoms reported Respiratory: no symptoms reported Cardiovascular: no symptoms reported Gastrointestinal: abdominal pain, loss of appetite, nausea Genitourinary: frequency, pain Musculoskeletal: no symptoms reported Skin: no symptoms reported Psychiatric/Neurological: No Symptoms Reported All Other Systems Reviewed Negative Unless Noted: Yes Physical Exam Physical Exam Vital Signs Vital Signs - First Documented 08/15/18 08/15/18 08/15/18 10:30 15:26 16:55 Temp 98.4 Pulse 81 Resp 16 B/P (MAP) 128/77 (94) Pulse Ox 98 O2 Delivery Room Air O2 Flow Rate 10 FiO2 40 Capillary Refill : Less Than 3 Seconds Height, Weight, BMI Height: 5'4.00" Weight: 234lbs. 5.0oz. 106.882700xx; 40.2 BMI Method:Stated General Appearance: No Apparent Distress, WD/WN, Chronically ill, Obese Eyes: Bilateral Eye Normal Inspection, Bilateral Eye PERRL HEENT: PERRL/EOMI, Normal ENT Inspection, Pharynx Normal Neck: Full Range of Motion, Normal Inspection, Non Tender, Supple, Carotid Bruit Respiratory: Chest Non Tender, Lungs Clear, Normal Breath Sounds, No Accessory Muscle Use, No Respiratory Distress Cardiovascular: Regular Rate, Rhythm, No Edema, No Gallop, No JVD, No Murmur, Normal Peripheral Pulses Gastrointestinal: Normal Bowel Sounds, No Organomegaly, No Pulsatile Mass, Soft, Tenderness (generalized) Back: Normal Inspection, No CVA Tenderness, No Vertebral Tenderness Extremity: Normal Capillary Refill, Normal Inspection, Normal Range of Motion, Non Tender, No Calf Tenderness, No Pedal Edema Neurologic/Psychiatric: Alert, Oriented x3, No Motor/Sensory Deficits, Normal Mood/Affect Skin: Normal Color, Warm/Dry Lymphatic: No Adenopathy Results Results/Procedures Labs Laboratory Tests 08/16/18 03:15 Patient resulted labs reviewed. Assessment/Plan Assessment and Plan Assess & Plan/Chief Complaint Assessment: s/p respiratory failure post op in recovery after uncomplicated Hyst POD # 1 currently HTN HLP JAM on CPAP Urinary retention Post op abdominal pain Hyperglycemia- add HGA1C Plan: Monitor sugar Monitor abdominal pain Monitor respiratory status CPAP Diagnosis/Problems Diagnosis/Problems (1) Respiratory failure Status: Resolved Qualifiers: Chronicity: acute Respiratory failure complication: unspecified whether with hypoxia or hypercapnia Qualified Codes: J96.00 - Acute respiratory failure, unspecified whether with hypoxia or hypercapnia Resolution Date/Time: 08/16/18 @ 15:17 (2) JAM on CPAP Status: Chronic (3) Hypertension Status: Chronic Qualifiers: Hypertension type: essential hypertension Qualified Codes: I10 - Essential (primary) hypertension (4) Hyperglycemia Status: Acute LEANDRO GOMEZ DO Aug 16, 2018 11:45
--- NOTE | 2018-08-16 12:00 | NUR ---
PT REPOSITIONED TO RT SIDE, CPAP MACHINE ON .
--- NOTE | 2018-08-16 12:34 | NUR ---
DR GOMEZ CALLED ABOUT PT, UPDATE GIVEN.
--- NOTE | 2018-08-16 12:37 | NUR ---
PT C/O INABILITY TO SLEEP DUE TO IV AND SCD MACHINES MAKING NOISE, EAR BUDS GIVEN TO PT.
--- NOTE | 2018-08-16 12:50 | NUR ---
DR GOMEZ HERE VISITING PT, NEW ORDERS RECEIVED.
--- NOTE | 2018-08-16 12:55 | NUR ---
ASSISTED PT TO BR PER REQUEST, VOID NOTED WITH RN IN ROOM, PT REPORTS FILLING LIKE HER BLADDER EMPTIED AND DENIES PAIN AT PERICARE COMPLETED PAD AND PANTIES ON, PT AMBULATED TO CHAIR WITHOUT DIFFICULTY
--- NOTE | 2018-08-16 13:00 | NUR ---
OPSITE DRESSING CHANGED TO BAND-AIDS, NO ACTIVE BLEEDING NOTED.
--- NOTE | 2018-08-16 13:15 | NUR ---
PVR COMPLETED, 172, DR BACA CALLED WITH RESULTS, NEW ORDERS RECEIVED, +FLATUS NOTED.
--- NOTE | 2018-08-16 13:30 | NUR ---
DR BACA CALLED WITH PVR RESULTS, NEW ORDERS RECEIVED.
--- NOTE | 2018-08-16 13:35 | NUR ---
IV HEP LOCKED.
--- NOTE | 2018-08-16 13:35 | NUR ---
PT C/O PAIN, PERCOCET(2) GIVEN PO PER PTS REQUEST, PT REMAINS SITTING UP IN CHAIR, NO DISTRESS NOTED, LUNCH TRAY SERVED. , IV HEP LOCKED.
[2018-08-16] MEDS ORDERED: PATIENT MAY USE OWN MEDS, ALL MC SCH (14:30)
--- NOTE | 2018-08-16 15:10 | NUR ---
PT UP AMBULATING IN HALLWAYS, NO DISTRESS NOTED, RN NEARBY.
[2018-08-16] MEDS ORDERED: IBUPROFEN 800 MG (MOTRIN) TAB PO SCH (16:00)
--- NOTE | 2018-08-16 17:20 | NUR ---
DR LANGE CALLED, UPDATE GIVEN NO NEW ORDERS RECEIVED.
--- NOTE | 2018-08-16 17:26 | NUR ---
PT RESTING IN BED COMFORTABLY WITHOUT C/O AT THIS TIME, CPAP ON, PTS S/O AT SIDE. ENCOURAGED PT TO TRY TO VOID IF POSSIBLE, PT NOTES SHE FEELS "LIKE SHE NEEDS TOO", VISITED WITH PT ABOUT POSSIBLE DISCHARGE HOME TONIGHT VS TOMORROW, PT UNSURE AT THIS TIME, WILL VISIT WITH DR LANGE DURING PM ROUNDING. NO DISTRESS NOTED, WILL MONITOR CLOSELY.
--- NOTE | 2018-08-16 17:39 | NUR ---
PT CALLED RN TO ROOM REQUESTING D/C HOME TONIGHT IF ABLE, REPORTS FEELING MUCH BETTER SINCE TAKING PERCOCET THIS AFTERNOON, PERCOCET SCRIPT GIVEN TO S/O IF OF DISCHARGE TONIGHT SO MEDS COULD BE FILLED PRIOR TO LEAVING. PT AMBULATED TO BR TO VOID, DR BACA CALLED TO VERIFY D/C HOME.
--- NOTE | 2018-08-16 17:50 | NUR ---
PT VOIDED 250ML WITHOUT DIFFICULTY, AMBULATED TO CHAIR, NO DISTRESS NOTED.
--- NOTE | 2018-08-16 19:10 | NUR ---
REPORT TO Jane PAREDES
--- NOTE | 2018-08-16 19:50 | NUR ---
Pt requesting to go home tonight. Phone call to dr. rodriguez, payal orders received.
--- NOTE | 2018-08-16 20:10 | NUR ---
Discharge instructions read and reviewed with pt, pt verbalized understanding. Belongings given to pt. RX already filled earlier today. No questions at this time. reviewed post op appointments with pt. Pt to wheel chair and off unit to dc home.
[2018-08-16] MEDS ORDERED: AMITRIPTYLINE 25 MG (ELAVIL) TAB PO SCH (21:00)
[2018-08-16] MEDS ORDERED: ATORVASTATIN 10 MG (LIPITOR) TABLET PO SCH (21:00)
[2018-08-16] MEDS ORDERED: amLODIPine 10 MG (NORVASC) TAB PO SCH (21:00)
[2018-08-16] MEDS ORDERED: ROPINIROLE 0.5 MG TABLET PO SCH (21:00)
[2018-08-16] MEDS ORDERED: NON-FORMULARY MEDICATION 1 EA EA (Amlodipine Besylate 10 MG) PO SCH (21:00)
[2018-08-16] MEDS ORDERED: NON-FORMULARY MEDICATION 1 EA EA (Ropinirole HCl 0.5 MG) PO SCH (21:00)
[2018-08-17] MEDS ORDERED: OMEPRAZOLE 20 MG (PriLOSEC) CAP NON-FORMULARY PO SCH (07:00)
[2018-08-17] MEDS ORDERED: NON-FORMULARY MEDICATION 1 EA EA (Cetirizine HCl (Zyrtec) 10 MG) PO SCH (09:00)
[2018-08-17] MEDS ORDERED: NON-FORMULARY MEDICATION 1 EA EA (Cholecalciferol (Vitamin D3) (Vitamin D3) 1,000 UNIT) PO SCH (09:00)
[2018-08-17] MEDS ORDERED: NON-FORMULARY MEDICATION 1 EA EA (Duloxetine HCl 120 MG) PO SCH (09:00)
[2018-08-17] MEDS ORDERED: NON-FORMULARY MEDICATION 1 EA EA (Omeprazole 40 MG) PO SCH (09:00)
[2018-08-17] MEDS ORDERED: VITAMIN D3 1,000 UNITS (CHOLECALCIFEROL) TABLET PO SCH (09:00)
[2018-08-17] MEDS ORDERED: LOSARTAN PO SCH (09:00)
[2018-08-17] MEDS ORDERED: ESTRADIOL 1 MG TAB (ESTRACE) PO SCH (09:00)
[2018-08-17] MEDS ORDERED: HCTZ PO SCH (09:00)
[2018-08-17] MEDS ORDERED: DULOXETINE 60 MG CAPSULE PO SCH (09:00)
[2018-08-17] MEDS ORDERED: ceTIRizine 10 MG (ZyrTEC) TAB NON-FORMULARY PO SCH (09:00)
[2018-08-17] MEDS ORDERED: IBUPROFEN 800 MG (MOTRIN) TAB PO SCH (10:00)
== END 2018-08-16 20:15 | disposition home or self-care (01) ==
LOC: SDC 10:13 → ICU 16:53 → WS 08-16 10:13 → SDC 08-16 20:15
PROVIDERS: ATTEND Obstetrics & Gynecology
DX: N81.4 Uterovaginal prolapse, unspecified (principal); J96.00 Acute respiratory failure, unspecified whether with hypoxia or hypercapnia; E11.65 Type 2 diabetes mellitus with hyperglycemia; N72 Inflammatory disease of cervix uteri; N88.8 Other specified noninflammatory disorders of cervix uteri; N80.0 Endometriosis of uterus; D25.1 Intramural leiomyoma of uterus; N36.42 Intrinsic sphincter deficiency (ISD); N39.46 Mixed incontinence; N32.81 Overactive bladder; G47.33 Obstructive sleep apnea (adult) (pediatric); J42 Unspecified chronic bronchitis; I10 Essential (primary) hypertension; E78.5 Hyperlipidemia, unspecified; R01.1 Cardiac murmur, unspecified; E11.40 Type 2 diabetes mellitus with diabetic neuropathy, unspecified; K21.9 Gastro-esophageal reflux disease without esophagitis; M79.7 Fibromyalgia; G25.81 Restless legs syndrome; D64.9 Anemia, unspecified; F32.9 Major depressive disorder, single episode, unspecified; F41.9 Anxiety disorder, unspecified; E66.01 Morbid (severe) obesity due to excess calories; Z68.41 Body mass index [BMI] 40.0-44.9, adult; Z79.899 Other long term (current) drug therapy; Z87.891 Personal history of nicotine dependence
CPT/HCPCS: 36415; 36600; 71045; 80048; 82805; 82962; 83036; 83735; 84100; 85007; 85027; 86850; 86900; 86901; 94664

== ENCOUNTER → 2018-09-19 | Outpatient (CLI) | payer BC ==
[~2018-09-19] MED LIST changes: +DOCU-143 PO; +ESTR1TAB24 PO; +IBUP-1780 PO; +OXYC1TAB87 PO
== END ==
LOC: RAD 09:19
PROVIDERS: ATTEND Obstetrics & Gynecology
DX: Z12.31 Encounter for screening mammogram for malignant neoplasm of breast (principal)
CPT/HCPCS: 77067

== ENCOUNTER 2019-02-05 19:14 | Emergency (ER) | payer BC ==
[~2019-02-05] VITALS: Ht 160 cm; Wt 104.5 kg
[~2019-02-05 19:14] MED LIST changes: -DULO60CA58 PO; +DULO60CA59 PO
--- NOTE | 2019-02-05 20:56 | Diagnostic Imaging Report ---
INDICATION: 2nd digit pain starting this afternoon, no known injury TECHNIQUE: Three views of the right hand. CORRELATION STUDY: None FINDINGS: There is normal alignment and appearance of the osseous structures of the hand. The joint spaces are maintained. There is no acute fracture. Slight asymmetric soft tissue swelling at the index finger. IMPRESSION: 1. Negative for acute bony abnormality of the hand. Dictated by: Dictated on workstation # [id number]
--- NOTE | 2019-02-05 21:03 | ED Upper Extremity ---
General Chief Complaint: Upper Extremity Stated Complaint: R HAND 2ND FINGER PAIN Nursing Triage Note: PT AMBULATED TO TRIAGE ROOM WITH C/O RIGHT FIRST FINGER PAIN 10/10. PT UNSURE OF HOW INJURY OCCURRED. Nursing Sepsis Screen: No Definite Risk Source: patient, family (sister) Exam Limitations: no limitations History of Present Illness Date Seen by Provider: Feb 05, 2019 Time Seen by Provider: 21:02 Initial Comments 58 yo female patient presents for c/o right 2nd finger pain. patient reports noticing the pain this afternoon. denies known injury. denies taking anything otc for pain. pain is worse with movement and palpation. reports pain is 10/10. Onset: this afternoon Method of Injury: unknown Modifying Factors: Improves With Immobilization; Worse With Movement, Worse With Other (worse with palpation) Allergies and Home Medications Allergies Uncoded Allergies: -mycins (Adverse Reaction, Mild, abd pain, 08/15/18) Home Medications Amitriptyline HCl 25 Mg Tablet, 25 MG PO HS, (Reported) Amlodipine Besylate 10 Mg Tablet, 10 MG PO HS, (Reported) Atorvastatin Calcium 10 Mg Tablet, 10 MG PO HS, (Reported) Cetirizine HCl 10 Mg Capsule, 10 MG PO DAILY, (Reported) Cholecalciferol (Vitamin D3) 1,000 Unit Capsule, 1,000 UNIT PO DAILY, (Reported) Docusate Sodium 100 Mg Capsule, 100 MG PO BID Prescribed by: KALIE MONTALVO on 08/15/181313 Duloxetine HCl 60 Mg Capsule.dr, 120 MG PO DAILY, (Reported) Estradiol 1 Mg Tablet, 1 MG PO DAILY Prescribed by: KALIE MONTALVO on 08/15/181313 Ibuprofen 800 Mg Tablet, 800 MG PO Q6H PRN for PAIN Prescribed by: KALIE MONTALVO on 08/15/181313 Losartan/Hydrochlorothiazide 1 Each Tablet, 1 EACH PO DAILY, (Reported) Omeprazole 20 Mg Tablet.dr, 40 MG PO DAILY, (Reported) take 2 (20mg) tabs Oxycodone HCl/Acetaminophen 1 Each Tablet, 1 TAB PO Q4H Prescribed by: KALIE MONTALVO on 08/15/181313 Ropinirole HCl 0.5 Mg Tablet, 0.5 MG PO BID, (Reported) Sulfamethoxazole/Trimethoprim 1 Each Tablet, 1 EACH PO BID Prescribed by: GILDARDO DALEY on 02/05/192116 Patient Home Medication List Home Medication List Reviewed: Yes Review of Systems Constitutional: No chills, No fever, No malaise Respiratory: no symptoms reported Cardiovascular: no symptoms reported Musculoskeletal: see HPI Skin: change in color (erythema ty 2nd finger); No lesions Psychiatric/Neurological: Denies Numbness, Denies Paresthesia, Denies Tingling, Denies Weakness All Other Systems Reviewed Negative Unless Noted: Yes (Negative excepted noted.) Past Xayclcz-Vspaji-Rgyoxt Hx Past Med/Social Hx: Reviewed Nursing Past Med/Soc Hx Patient Social History Alcohol Use: Denies Use Number of Drinks Today: DD Alcohol Beverage of Choice: Rum Recreational Drug Use: No Smoking Status: Former Smoker Type Used: Cigarettes Former Smoker, Quit: August 07, 1996 2nd Hand Smoke Exposure: Yes Recent Foreign Travel: No Contact w/Someone Who Travel: No Recent Infectious Disease Expo: No Recent Hopitalizations: No Immunizations Up To Date Tetanus Booster (TDap): Unknown Date of Pneumonia Vaccine: Dec 24, 2016 Date of Influenza Vaccine: Dec 23, 2018 Seasonal Allergies Seasonal Allergies: No Past Medical History Surgeries: Yes (R CARPEL TUNNEL) Bladder Surgery, Hysterectomy Respiratory: No Chronic Bronchitis, Sleep Apnea Currently Using CPAP: Yes Currently Using BIPAP: No Cardiac: No Heart Murmur, High Cholesterol, Hypertension Neurological: No Neuropathy : No 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 Disorders: No SHAGGER History: Menopausal Sexually Transmitted Disease: No HIV/AIDS: No Genitourinary: Yes (PT HAD BLADDER SLING ) Gastrointestinal: No Gastroesophageal Reflux Musculoskeletal: No Degenerate Disk Disease, Fibromyalgia, Chronic Back Pain Endocrine: No Diabetes, Non-Insulin dep HEENT: No Loss of Vision: Bilateral Hearing Impairment: Denies Cancer: No Psychosocial: No Anxiety, Depression Integumentary: No Blood Disorders: No Adverse Reaction/Blood Tranf: No Family Medical History Reviewed Nursing Family Hx Cardiovascular disease paternal grandfather maternal grandfather (chf) Diabetes mellitus paternal grandfather Myocardial infarction 19 FATHER Respiratory disorder 19 MOTHER (copd) Diabetes Physical Exam Vital Signs Vital Signs - First Documented 02/05/19 20:29 Temp 36.0 Pulse 90 Resp 18 B/P (MAP) 140/75 (96) Pulse Ox 96 O2 Delivery Room Air Capillary Refill : Less Than 3 Seconds Height, Weight, BMI Height: 5'4.00" Weight: 234lbs. 5.0oz. 106.931884mk; 40.00 BMI Method:Stated General Appearance: WD/WN, no apparent distress Cardiovascular: normal peripheral pulses, no edema Elbow/Forearm: normal inspection, non-tender, no evidence of injury, normal ROM, Right Wrist: Yes normal inspection, Yes non-tender, Yes no evidence of injury, Yes normal ROM Hand: Right, bone tenderness (rt 2nd PIP joint), infection (rt 2nd PIP joint), limited ROM (rt 2nd finger), soft tissue tenderness (rt 2nd finger), swelling (rt 2nd finger) Neurologic/Tendon: normal sensation, normal motor functions, normal tendon functions, responds to pain, no evidence tendon injury Neurologic/Psychiatric: no motor/sensory deficits, alert, normal mood/affect, oriented x 3 Skin: normal color, warm/dry, other (erythema rt 2nd finger at the PIP joint.) Progress/Results/Core Measures Results/Orders My Orders Orders - GILDARDO DALEY Hand, Right, 3 Views (02/05/19 20:17) Rx-Hydrocodone/Apap 5-325 Mg (Rx-Vicodin (02/05/19 21:15) Rx-Clindamycin Capsule (Rx-Cleocin Capsu (02/05/19 21:13) Rx-Trimeth/Sulfameth Ds Tab (Rx-Bactrim/ (02/05/19 21:17) Medications Given in ED Current Medications Medications Dose Ordered Sig/Isa Route Start Time Stop Time Status Last Admin Dose Admin Acetaminophen/ Hydrocodone Bitart 1 ea Q6H PRN PO 02/05/19 21:15 02/05/19 21:24 1 EA Vital Signs/I&O 02/05/19 20:29 Temp 36.0 Pulse 90 Resp 18 B/P (MAP) 140/75 (96) Pulse Ox 96 O2 Delivery Room Air Blood Pressure Mean: 96 POS Diagnostic Imaging Diagonstic Imaging: Xray Plain Films/CT/US/NM/MRI: hand Comments Draft POSDate of Exam:02/05/19 HAND, RIGHT, 3 VIEWS INDICATION: 2nd digit pain starting this afternoon, no known injury TECHNIQUE: Three views of the right hand. CORRELATION STUDY: None FINDINGS: There is normal alignment and appearance of the osseous structures of the hand. The joint spaces are maintained. There is no acute fracture. Slight asymmetric soft tissue swelling at the index finger. IMPRESSION: 1. Negative for acute bony abnormality of the hand. Dictated on workstation # [id number] Reviewed: Reviewed by Me (radiology report reviewed by me) Departure Communication (Admissions) patient seen and evaluated. plain radiographs obtained of the rt hand. diagnostic findings discussed with the patient. plan for dsch to home with f/u tomorrow with Dr. Tarango. Impression Primary Impression: Cellulitis of finger of right hand Disposition: HOME, SELF-CARE Condition: Improved Departure-Patient Inst. Decision time for Depature: 21:15 Referrals: AARON TARANGO DO (PCP/Family) Primary Care Physician Patient Instructions: Cellulitis (Skin Infection), Adult (DC) Add. Discharge Instructions: All discharge instructions reviewed with patient and/or family. Voiced understanding. Medications as instructed. Tylenol extra strength [id number] as directed for pain. Ibuprofen 800 mg by mouth every 8 hours as needed for pain. Elevate the right hand on pillows above the level of the heart. Follow-up with Dr. Dr. Tarango tomorrow for recheck, call first thing in the morning for appointment time. Return in the emergency department for worsened symptoms or any other concerns. Scripts Sulfamethoxazole/Trimethoprim (Sulfamethoxazole-Tmp Ds Tablet) 1 Each Tablet 1 EACH PO BID, #14 TAB 0 Refills Prov: GILDARDO DALEY 02/05/19 Work/School Note: Work Release Form Date Seen in the Emergency Department: Feb 05, 2019 Return to Work: Feb 07, 2019 GILDARDO DALEY Feb 05, 2019 21:02 POS
[2019-02-05] MEDS ORDERED: RX-CLINDAMYCIN 150 MG (CLEOCIN) CAP PPK#4 PO STA (21:13)
[2019-02-05] MEDS ORDERED: RX-HYDROCODONE/APAP 5/325 MG #4 TAB PK PO PRN (21:15)
[2019-02-05] MEDS ORDERED: SULF-222 PO (21:17)
[2019-02-05] MEDS ORDERED: RX-TRIMETH/SULFA. 160-800 MG (BACTRIM DS) TAB PPK#2 PO STA (21:17)
[2019-02-05 21:35] VITALS: BP 126/72
== END 2019-02-05 21:31 | disposition home or self-care (01) ==
LOC: EDUNIT# 19:14 → ER 19:16
DX: L03.011 Cellulitis of right finger (principal); I10 Essential (primary) hypertension; E11.40 Type 2 diabetes mellitus with diabetic neuropathy, unspecified; E78.00 Pure hypercholesterolemia, unspecified; G47.30 Sleep apnea, unspecified; K21.9 Gastro-esophageal reflux disease without esophagitis; M79.7 Fibromyalgia; F32.9 Major depressive disorder, single episode, unspecified; F41.9 Anxiety disorder, unspecified; Z99.89 Dependence on other enabling machines and devices; Z82.49 Family history of ischemic heart disease and other diseases of the circulatory system; Z88.8 Allergy status to other drugs, medicaments and biological substances; Z79.52 Long term (current) use of systemic steroids; Z87.891 Personal history of nicotine dependence; Z77.22 Contact with and (suspected) exposure to environmental tobacco smoke (acute) (chronic); Z90.710 Acquired absence of both cervix and uterus
CPT/HCPCS: 73130

== ENCOUNTER → 2019-10-05 | Outpatient (CLI) | payer BC ==
[~2019-10-05] MED LIST changes: +METF-865 PO; -METF500T8 PO; -ROPI0.5T2 PO; +ROPI0.5T4 PO; +SULF-222 PO; -VALS1TAB78 PO; +VALS1TAB79 PO
--- NOTE | 2019-10-05 11:15 | Diagnostic Imaging Report ---
INDICATION: Routine screening. Comparison is made with prior mammograms from 09/19/2018 and 11/02/2013. 2-D and 3-D bilateral screening mammography was performed with CAD. Scattered fibroglandular densities are identified bilaterally. Nodular densities particularly in the left breast appears stable and consistent with benign etiology. No spiculated mass or malignant appearing microcalcifications are seen. Axillae are unremarkable. IMPRESSION: BI-RADS Category 2 No mammographic features suspicious for malignancy are identified. ACR BI-RADS Category 2: Benign findings. Result letter will be mailed to the patient. Note: At least 10% of breast cancer is not imaged by mammography. Dictated by: Dictated on workstation # [id number]
== END ==
LOC: RAD 09:52
PROVIDERS: ATTEND Nurse Practitioner Family
DX: Z12.31 Encounter for screening mammogram for malignant neoplasm of breast (principal)
CPT/HCPCS: 77063; 77067

== ENCOUNTER → 2020-10-10 | Outpatient (CLI) | payer BC ==
[~2020-10-10] MED LIST changes: +AMLO-251 PO; -AMLO10TA7 PO
--- NOTE | 2020-10-10 15:35 | Diagnostic Imaging Report ---
INDICATION: Routine screening. COMPARISON is made with prior mammograms of 10/05/2019 and 09/19/2018. 2-D and 3-D bilateral screening mammography was performed with CAD. Scattered fibroglandular densities are identified bilaterally. Nodular densities in both breasts appear stable and consistent with benign etiologies. No mass or malignant-appearing microcalcifications are seen. Axillae are unremarkable. IMPRESSION: BI-RADS Category 2 No mammographic features suspicious for malignancy are identified. ACR BI-RADS Category 2: Benign findings. Result letter will be mailed to the patient. Note: At least 10% of breast cancer is not imaged by mammography. Dictated by: Dictated on workstation # [id number]
== END ==
LOC: RAD 10:00
PROVIDERS: ATTEND Nurse Practitioner Family
DX: Z12.31 Encounter for screening mammogram for malignant neoplasm of breast (principal)
CPT/HCPCS: 77063; 77067

== ENCOUNTER 2022-06-27 19:00 | Emergency (ER) | payer BC ==
[~2022-06-27] VITALS: Ht 160 cm; Wt 113.4 kg
[~2022-06-27 19:00] MED LIST changes: +CYCL10TA25; -CYCL10TA9; +OMEP20TA56 PO; -OMEP20TA7 PO
[2022-06-27] MEDS ORDERED: NITROGLYCERIN 0.4 MG SL TABS BTL 25'S SL PRN (19:15)
[2022-06-27] MEDS ORDERED: ASPIRIN 81 MG CHEW (CHILDREN'S ASA) PO ONE (19:15)
--- NOTE | 2022-06-27 19:18 | ED Cardiac General ---
History of Present Illness General Chief Complaint: Chest Pain Stated Complaint: CHEST PAIN Nursing Triage Note: PT TO ED BY POV WITH C/O CP. 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 DENIES DIZZINESS, N/V, OR CP AT THIS TIME. PT REPORTS INTERMITTENT CP OVER THE LAST MONTH. Source: patient History of Present Illness Date Seen by Provider: Jun 27, 2022 Time Seen by Provider: 19:01 Initial Comments PT ARRIVES VIA POV C/O CHEST PAIN IN CENTER OF CHEST--PAIN BEGAN 30 MINUTES AGO, WHILE PLAYING CARDS WITH HER SISTER PAIN IS GONE NOW NO RADIATION OF PAIN NOTHING WORSENS OR IMPROVES PAIN + SHORTNESS OF BREATH NO DIZZINESS NO SWEATS NO NAUSEA/VOMITING NO CHANGE IN CHRONIC LEG SWELLING SHE HAS BEEN HAVING COUGH AND CONGESTION SINCE 06/16/22 SHE HAS BEEN HAVING THIS SAME PAIN FOR THE LAST MONTH SHE HAS NOT TAKEN ANYTHING FOR SYMPTOMS AT ANY TIME. SHE SAW DR. KRISHNAN AT [facility] ON 06/18/22 FOR ROUTINE 3 MONTH CHECK UP. PT HAS HAD COVID VACCINE X 2, AND FLU VACCINE SHE DENIES ANY HISTORY OF HEART OR LUNG PROBLEMS--SHE HAD A NORMAL STRESS TEST IN 2018 SHE HAS HTN, HYPERLIPIDEMIA AND IS OBESE SHE QUIT SMOKING IN THE , DENIES ALCOHOL OR DRUG USE. 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 KRISHNAN AT [facility] Allergies and Home Medications Allergies Uncoded Allergies: -mycins (Adverse Reaction, Mild, abd pain, 08/15/18) Patient Home Medication List Home Medication List Reviewed: Yes Amitriptyline HCl (Amitriptyline HCl) 25 Mg Tablet, 25 MG PO HS, (Reported) Entered as Reported by: CLAUDY LINTON on 08/07/18 09 Amlodipine Besylate (Amlodipine Besylate) 10 Mg Tablet, 10 MG PO HS, (Reported) Entered as Reported by: PATRICIA ORDOÑEZ on 04/14/161952 Atorvastatin Calcium (Atorvastatin Calcium) 10 Mg Tablet, 10 MG PO HS, (Reported) Entered as Reported by: PATRICIA ORDOÑEZ on 04/14/161952 Cetirizine HCl (Zyrtec) 10 Mg Capsule, 10 MG PO DAILY, (Reported) Entered as Reported by: BOB VASQUEZ on 08/10/171810 Cholecalciferol (Vitamin D3) (Vitamin D3) 1,000 Unit Capsule, 1,000 UNIT PO DAILY, (Reported) Entered as Reported by: BOB VASQUEZ on 08/10/17 1811 Docusate Sodium (Colace) 100 Mg Capsule, 100 MG PO BID Prescribed by: KALIE MONTALVO on 08/15/18 1314 Duloxetine HCl (Duloxetine HCl) 60 Mg Capsule.dr, 120 MG PO DAILY, (Reported) Entered as Reported by: CLAUDY LINTON on 08/07/18 0906 Estradiol (Estradiol Tablet) 1 Mg Tablet, 1 MG PO DAILY Prescribed by: KALIE MONTALVO on 08/15/18 1314 Ibuprofen (Ibuprofen) 800 Mg Tablet, 800 MG PO Q6H PRN for PAIN Prescribed by: KALIE MONTALVO on 08/15/18 1314 Losartan/Hydrochlorothiazide (Losartan-Hctz 100-25 mg Tab) 1 Each Tablet, 1 EACH PO DAILY, (Reported) Entered as Reported by: CLAUDY LINTON on 08/07/18 0906 Omeprazole (Omeprazole) 20 Mg Tablet.dr, 40 MG PO DAILY, (Reported) Entered as Reported by: SHAKEEL CISNEROS on 08/29/17 1012 Oxycodone HCl/Acetaminophen (Percocet 5-325 mg Tablet) 1 Each Tablet, 1 TAB PO Q4H Prescribed by: KALIE MONTALVO on 08/15/18 1314 Ropinirole HCl (Ropinirole HCl) 0.5 Mg Tablet, 0.5 MG PO BID, (Reported) Entered as Reported by: SHAKEEL CISNEROS on 08/29/17 0957 Sulfamethoxazole/Trimethoprim (Sulfamethoxazole-Tmp Ds Tablet) 1 Each Tablet, 1 EACH PO BID Prescribed by: GILDARDO DALEY on 02/05/192116 Review of Systems Review of Systems Constitutional: no symptoms reported EENTM: No Symptoms Reported, Nose Congestion Respiratory: See HPI, Cough Cardiovascular: See HPI, Chest Pain, Edema; Denies Irregular Heart Rate, Denies Lightheadedness, Denies Palpitations, Denies Syncope Gastrointestinal: No Symptoms Reported; Denies Abdominal Pain, Denies Nausea, Denies Vomiting Genitourinary: No Symptoms Reported Musculoskeletal: see HPI (NO CHANGE IN CHRONIC LEG SWELLING) Skin: no symptoms reported Psychiatric/Neurological: No Symptoms Reported Endocrine: No Symptoms Reported Hematologic/Lymphatic: No Symptoms Reported Past Bxtqpfv-Txfvee-Qtnghv Hx Patient Social History Tobacco Use?: Yes Tobacco type used: Cigarettes Smoking Status: Former Smoker Use of E-Cig and/or Vaping dev: No Substance use?: No Alcohol Use?: No Pt feels they are or have been: No Immunizations Up To Date Tetanus Booster (TDap): Unknown Influenza Vaccine Up-to-Date: Yes; Up-to-Date First/Initial COVID19 Vaccinat: X2 Seasonal Allergies Seasonal Allergies: No Past Medical History Surgery/Hospitalization HX: HTN, HIGH CHOLESEROL Surgeries: Yes (R CARPEL TUNNEL; BLADDER SLING) Bladder Surgery, Hysterectomy, Orthopedic Respiratory: Yes Chronic Bronchitis, Sleep Apnea Currently Using CPAP: Yes Currently Using BIPAP: No Cardiac: Yes Heart Murmur, High Cholesterol, Hypertension Neurological: Yes Neuropathy 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 Sexually Transmitted Disease: No HIV/AIDS: No Genitourinary: Yes (PT HAD BLADDER SLING ) Gastrointestinal: Yes Gastroesophageal Reflux Musculoskeletal: No Degenerate Disk Disease, Fibromyalgia, Chronic Back Pain Endocrine: Yes (MORBID OBESITY) Diabetes, Non-Insulin dep HEENT: No Loss of Vision: Bilateral Hearing Impairment: Denies Cancer: No Psychosocial: Yes Anxiety, Depression Integumentary: No Blood Disorders: No Adverse Reaction/Blood Tranf: No Family Medical History Cardiovascular disease paternal grandfather maternal grandfather (chf) Diabetes mellitus paternal grandfather Myocardial infarction 19 FATHER Respiratory disorder 19 MOTHER (copd) Diabetes SOCIAL HISTORY: -SMOKED IN THE PAST--QUIT IN -DENIES ALCOHOL USE -DENIES DRUG USE PAST SURGICAL HISTORY: -STRESS TEST 08/27/[address] KUHN--NORMAL WITH EF 75% -Date of Procedure 08/15/18 Procedure Performed/Findings TH with BSO/anterior and posterior repairs with enterocele repair and with PVS and cystoscopy by Dr. BACA -ENDOSCOPY BY DR. BOGGS: Post-Operative Diagnosis Gastritis Gastric Polyp Hiatal Hernia Descending colon polyp Internal hemorrhoids Procedure & Operative Findings Date of Procedure 09/02/17 Procedure Performed/Findings EGD with bx Colon with hot bx Physical Exam Vital Signs Vital Signs - First Documented 06/27/22 19:03 Temp 37.2 Pulse 80 Resp 14 B/P (MAP) 155/64 (94) Pulse Ox 96 O2 Delivery Room Air Capillary Refill : Less Than 3 Seconds Height, Weight, BMI Height: 5'4.00" Weight: 234lbs. 5.0oz. 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 Norm as Tested Skin: Normal Color, Warm/Dry; No Rash Progress/Results/Core Measures Results/Orders Lab Results Laboratory Tests Test 06/27/22 19:16 06/27/22 19:20 06/27/22 22:04 Range/Units Influenza Type A (RT-PCR) Not Detected Not Detecte Influenza Type B (RT-PCR) Not Detected Not Detecte SARS-CoV-2 RNA (RT-PCR) Not Detected Not Detecte White Blood Count 8.8 4.3-11.0 10^3/uL Red Blood Count 4.19 3.80-5.11 10^6/uL Hemoglobin 12.0 11.5-16.0 g/dL Hematocrit 37 35-52 % Mean Corpuscular Volume 89 80-99 fL Mean Corpuscular Hemoglobin 29 25-34 pg Mean Corpuscular Hemoglobin Concent 32 32-36 g/dL Red Cell Distribution Width 14.5 10.0-14.5 % Platelet Count 307 130-400 10^3/uL Mean Platelet Volume 9.6 9.0-12.2 fL Immature Granulocyte % (Auto) 0 % Neutrophils (%) (Auto) 52 42-75 % Lymphocytes (%) (Auto) 37 12-44 % Monocytes (%) (Auto) 8 0-12 % Eosinophils (%) (Auto) 2 0-10 % Basophils (%) (Auto) 1 0-10 % Neutrophils # (Auto) 4.6 1.8-7.8 10^3/uL Lymphocytes # (Auto) 3.2 1.0-4.0 10^3/uL Monocytes # (Auto) 0.7 0.0-1.0 10^3/uL Eosinophils # (Auto) 0.2 0.0-0.3 10^3/uL Basophils # (Auto) 0.1 0.0-0.1 10^3/uL Immature Granulocyte # (Auto) 0.0 0.0-0.1 10^3/uL Prothrombin Time 13.4 12.2-14.7 SEC INR Comment 1.0 0.8-1.4 Activated Partial Thromboplast Time 31 24-35 SEC D-Dimer <= 0.27 0.00-0.49 UG/ML Sodium Level 140 135-145 MMOL/L Potassium Level 3.5 L 3.6-5.0 MMOL/L Chloride Level 104 98-107 MMOL/L Carbon Dioxide Level 23 21-32 MMOL/L Anion Gap 13 5-14 MMOL/L Blood Urea Nitrogen 23 H 7-18 MG/DL Creatinine 1.12 0.60-1.30 MG/DL Estimat Glomerular Filtration Rate 57 BUN/Creatinine Ratio 21 Glucose Level 108 H 70-105 MG/DL Calcium Level 8.8 8.5-10.1 MG/DL Corrected Calcium 8.9 8.5-10.1 MG/DL Magnesium Level 2.1 1.6-2.4 MG/DL Total Bilirubin 0.2 0.1-1.0 MG/DL Aspartate Amino Transf (AST/SGOT) 15 5-34 U/L Alanine Aminotransferase (ALT/SGPT) 23 0-55 U/L Alkaline Phosphatase 73 40-136 U/L Total Creatine Kinase 117 29-168 U/L Creatine Kinase MB 1.5 <6.6 NG/ML Myoglobin 34.4 10.0-92.0 NG/ML Troponin I < 0.028 < 0.028 <0.028 NG/ML B-Type Natriuretic Peptide < 10.0 <100.0 PG/ML Total Protein 7.0 6.4-8.2 GM/DL Albumin 3.9 3.2-4.5 GM/DL Amylase Level 41 25-125 U/L Lipase 22 8-78 U/L My Orders Orders - TL,SHIVANI K DO Nitroglycerin 0.4 Mg Btl 25's (Nitrostat (06/27/22 19:15) Aspirin Chewable Tablet (Baby Aspirin Ch (06/27/22 19:15) Cbc With Automated Diff (06/27/22 19:04) Magnesium (06/27/22 19:04) Comprehensive Metabolic Panel (06/27/22 19:04) Myoglobin Serum (06/27/22 19:04) Protime With Inr (06/27/22:04) Partial Thromboplastin Time (06/27/22 19:04) Creatine Kinase (06/27/22 19:04) Creatine Kinase Mb (06/27/22 19:04) Lipase (06/27/22 19:04) Amylase (06/27/22:04) Bnp Imperial (06/27/22:04) Fibrin Degradation Products (06/27/22:) Troponin I Imperial (06/27/22:04) Covid 19 Inhouse Test (06/27/22:04) Influenza A And B By Pcr (06/27/22 19:04) Chest 1 View, Ap/Pa Only (06/27/22 19:04) Ekg Tracing (06/27/22:04) O2 (06/27/22:04) Monitor-Rhythm Ecg Trace Only (06/27/22 19:04) Ed Iv/Invasive Line Start (06/27/22 19:04) Isolation Central Supply Req (06/27/22 19:04) Ct Angio Chest W (R/O Pe) (06/27/22 20:33) Iohexol Injection (Omnipaque 350 Mg/Ml 1 (06/27/22 20:45) Received Contrast (Hold Metformin- Contr (06/27/22 20:45) Ns (Ivpb) (Sodium Chloride 0.9% Ivpb Bag (06/27/22 20:45) Ekg Tracing (06/27/22 21:54) Troponin I Imperial (06/27/22 21:54) Medications Given in ED Current Medications Medications Dose Ordered Sig/Isa Route Start Time Stop Time Status Last Admin Dose Admin Aspirin 324 mg ONCE ONCE PO 06/27/22 19:15 06/27/22 19:17 DC 06/27/22 19:16 324 MG Iohexol 100 ml ONCE ONCE IV 06/27/22 20:45 06/27/22 20:46 DC 4/12/23 21:05 84 ML Sodium Chloride 100 ml ONCE ONCE IV 06/27/22 20:45 06/27/22 20:46 DC 06/27/22 21:05 70 ML Vital Signs/I&O 06/27/22 06/27/22 19:03 22:46 Temp 37.2 37.0 Pulse 80 80 Resp 14 16 B/P (MAP) 155/64 (94) 136/57 Pulse Ox 96 97 O2 Delivery Room Air Room Air Blood Pressure Mean: 94 Progress Progress Note : Progress Note GIVEN: -ASPIRIN NTG HELD PT IS NOT HAVING ANY CHEST PAIN AT THIS TIME. 2034--PT IS SYMPTOM-FREE AT THIS TIME. WILL OBTAIN CT CHEST ANGIOGRAM FOR FURTHER EVALUATION OF PT'S SYMPTOMS. WILL DO REPEAT 3 HOUR EKG AND TROPONIN. REPEAT EKG AND TROPONIN ARE BOTH NEGATIVE/UNCHANGED PT REMAINED SYMPTOM-FREE FOR ENTIRE ER STAY. NO COUGH NO DYSPNEA NO HYPOXIA NO FEVER NO CHEST PAIN DURING ER STAY VITALS STABLE. REVIEWED TEST RESULTS, ANTICIPATED COURSE, NEED FOR FOLLOW UP AND RETURN PRECAUTIONS Initial ECG Impression Date: Jun 27, 2022 Initial ECG Impression Time: 19:10 Initial ECG Rate: 75 Initial ECG Rhythm: Normal Sinus Initial ECG Intervals: Normal Initial ECG Impression: Normal Initial ECG Comparisson: No Previous ECG Available (UNABLE TO VIEW PRIOR EKG'S) EKG : EKG Time: 21:57 Rate: 78 Rhythm: Normal Sinus Intervals MA 203 QRS 103 QT/QTC 392/447 ECG Comparisson: Unchanged Diagnostic Imaging Comments CXR--PER RADIOLOGIST REPORT AT 1946 FINDINGS: Heart size and pulmonary vascularity are within normal limits and the lungs are clear, bilaterally. IMPRESSION: Unremarkable chest. CT CHEST ANGIOGRAM--PER RADIOLOGIST REPORT AT 2127 FINDINGS: There is good opacification of pulmonary arteries without intraluminal filling defect. Thoracic aorta has a normal appearance. Lungs are clear. There is no significant pleural or pericardial fluid. No pathologic adenopathy is seen. IMPRESSION: No CTA evidence of great vessel abnormality in the chest. No other acute abnormality is detected. Reviewed: Reviewed by Me Departure Impression Primary Impression: Chest pain Additional Impressions: Chronic dyspnea Chronic edema Hypertension Disposition: HOME, SELF-CARE Condition: Stable Departure-Patient Inst. Decision time for Depature: 22:38 Referrals: EVELIA KRISHNAN BASHAR J MD Patient Instructions: DASH Diet, Dependent Edema (DC), Chest Pain, Adult ED, High Blood Pressure ED, Shortness of Breath, Adult ED Add. Discharge Instructions: CONTINUE YOUR MEDICATIONS PRESCRIBED FOLLOW UP WITH DR. KRISHNAN IN THE NEXT FEW DAYS FOR FURTHER CARE RETURN TO ER IF SYMPTOMS WORSEN All discharge instructions reviewed with patient and/or family. Voiced understanding. SHIVANI BOOTHE DO Jun 27, 2022 19:18
[2022-06-27 19:35] LABS: BASOPHILS # (AUTO) 0.1 10^3/uL (0.0-0.1); BASOPHILS % (AUTO) 1 % (0-10); EOSINOPHILS # (AUTO) 0.2 10^3/uL (0.0-0.3); EOSINOPHILS % (AUTO) 2 % (0-10); HEMATOCRIT 37 % (35-52); LYMPHOCYTES # (AUTO) 3.2 10^3/uL (1.0-4.0); LYMPHOCYTES % (AUTO) 37 % (12-44); MEAN CORPUSCULAR HEMOGLOBIN 29 pg (25-34); MEAN CORPUSCULAR HGB CONC 32 g/dL (32-36); MEAN CORPUSCULAR VOLUME 89 fL (80-99); MEAN PLATELET VOLUME 9.6 fL (9.0-12.2); MONOCYTES # (AUTO) 0.7 10^3/uL (0.0-1.0); MONOCYTES % (AUTO) 8 % (0-12); NEUTROPHILS # (AUTO) 4.6 10^3/uL (1.8-7.8); NEUTROPHILS % (AUTO) 52 % (42-75); PLATELET COUNT 307 10^3/uL (130-400); WHITE BLOOD COUNT 8.8 10^3/uL (4.3-11.0)
--- NOTE | 2022-06-27 19:39 | Diagnostic Imaging Report ---
INDICATION: Chest pain. EXAMINATION: Single AP view of the chest was obtained. COMPARISON: Study of 08/16/2018. FINDINGS: Heart size and pulmonary vascularity are within normal limits and the lungs are clear, bilaterally. IMPRESSION: Unremarkable chest. Dictated by: Dictated on workstation # [id number]
[2022-06-27 19:41] LABS: PROTHROMBIN TIME PATIENT 13.4 SEC (12.2-14.7)
[2022-06-27 19:43] LABS: ALBUMIN 3.9 GM/DL (3.2-4.5); BILIRUBIN,TOTAL 0.2 MG/DL (0.1-1.0); CALCIUM 8.8 MG/DL (8.5-10.1); CREATININE SERUM 1.12 MG/DL (0.60-1.30); MAGNESIUM 2.1 MG/DL (1.6-2.4); POTASSIUM 3.5 MMOL/L (3.6-5.0)
[2022-06-27 19:50] LABS: CREATINE KINASE MB 1.5 NG/ML (<6.6)
[2022-06-27] MEDS ORDERED: IOHEXOL 350 MG/ML 100 ML (OMNIPAQUE 350) VIAL IV ONE (20:45)
[2022-06-27] MEDS ORDERED: NS 100 ML (IVPB) BAG IV ONE (20:45)
[2022-06-27] MEDS ORDERED: HOLD METFORMIN - RECEIVED CONTRAST 20 ML VIAL IV SCH (20:45)
--- NOTE | 2022-06-27 21:26 | Diagnostic Imaging Report ---
INDICATION: Acute onset chest pain and dyspnea. TECHNIQUE: CTA of the thorax was performed after bolus intravenous administration of iodinated contrast. 3D reformatted images were produced. Automatic exposure controls were utilized to keep dose as low as reasonably achievable. FINDINGS: There is good opacification of pulmonary arteries without intraluminal filling defect. Thoracic aorta has a normal appearance. Lungs are clear. There is no significant pleural or pericardial fluid. No pathologic adenopathy is seen. IMPRESSION: No CTA evidence of great vessel abnormality in the chest. No other acute abnormality is detected. Dictated by: Dictated on workstation # [id number]
[2022-06-27 22:46] VITALS: BP 136/57
== END 2022-06-27 22:46 | disposition home or self-care (01) ==
LOC: EDUNIT# 19:00 → ER 19:04
DX: I10 Essential (primary) hypertension (principal); R60.0 Localized edema; R06.00 Dyspnea, unspecified; G47.30 Sleep apnea, unspecified; E66.01 Morbid (severe) obesity due to excess calories; Z68.41 Body mass index [BMI] 40.0-44.9, adult; Z87.891 Personal history of nicotine dependence; Z20.822 Contact with and (suspected) exposure to COVID-19; Z99.89 Dependence on other enabling machines and devices
CPT/HCPCS: 36415; 71045; 71275; 80053; 82150; 82550; 82553; 83690; 83735; 83874; 83880; 84484; 85025; 85379; 85610; 85730; 87636; 93005; 93041

== ENCOUNTER → 2022-07-23 | Outpatient (CLI) | payer BC ==
[~2022-07-23] MED LIST changes: +GABA300S3 PO; +METO50TA7 PO; +OXYB5TAB13 PO
== END ==
LOC: CARD 09:21
PROVIDERS: ATTEND Internal Medicine Cardiovascular Disease
DX: R06.09 Other forms of dyspnea (principal)
CPT/HCPCS: 93306

== ENCOUNTER 2022-07-25 05:43 | Outpatient (CLI) | payer BC ==
[~2022-07-25] VITALS: Ht 160 cm; Wt 116.1 kg
[~2022-07-25 05:43] MED LIST changes: -GABA300S3 PO; -METO50TA7 PO; -OXYB5TAB13 PO
[2022-07-25] MEDS ORDERED: OXYB5TAB13 PO (15:40)
[2022-07-25] MEDS ORDERED: METO50TA7 PO (15:40)
[2022-07-25] MEDS ORDERED: GABA300S3 PO (15:40)
== END 2022-07-25 15:58 | disposition home or self-care (01) ==
LOC: PREOP 05:43
PROVIDERS: ATTEND Surgery
DX: Z01.818 Encounter for other preprocedural examination (principal)

== ENCOUNTER 2022-08-06 07:48 | Day surgery (SDC) | payer BC, OTHER ==
[~2022-08-06] VITALS: Ht 160 cm; Wt 116.1 kg
[~2022-08-06 07:48] MED LIST changes: +GABA300S3 PO; +METO50TA7 PO; +OXYB5TAB13 PO
[2022-08-06] MEDS ORDERED: LACTATED RINGERS 1,000 ML IV STA (07:57)
[2022-08-06] MEDS ORDERED: HURRICAINE EXT TUBE (BENZOCAINE) XX PRN (08:00)
[2022-08-06 08:03] VITALS: BP 132/61
[2022-08-06] MEDS ORDERED: KETAMINE 50 MG/5 ML SYRINGE ONE (09:28)
[2022-08-06] MEDS ORDERED: PROPOFOL INJECTION 50 ML IV ONE (09:28)
[2022-08-06] MEDS ORDERED: MIDAZOLAM 2 MG/2 ML (VERSED) VIAL ONE (09:28)
--- NOTE | 2022-08-06 09:58 | Progress Note-Post Operative ---
Post-Operative Progess Note Surgeon (s)/Graphic Design Specialist (s) Surgeon NAOMI BOGGS DO Graphic Design Specialist: none Pre-Operative Diagnosis Epigastric pain, GERD, hx of polyps Post-Operative Diagnosis Gastritis Hiatal hernia Esophagitis Polyp Colonic ulcer int hemorrhoids Procedure & Operative Findings Date of Procedure 08/06/22 Procedure Performed/Findings EGD with bx Colonoscopy with hot biopsy PROCEDURE NOTE: After informed consent was obtained, the patient was brought to the endoscopy suite, placed in bed in left lateral decubitus position. She was administered IV sedation by the CLAIM TAKER who then monitored vitals the entire time, heart rate, blood pressure and pulse ox and the scope was inserted down the mouth through the esophagus into the stomach. On the way down, noted some mild esophagitis, took a picture, pushed into the stomach, pushed past the antrum into the duodenum. Duodenum looked good. Pulled back and did a biopsy of antrum, then retroflexed the scope, saw hiatal hernia, took a picture of this and then pulled the scope into the GE junction, took another picture of the hiatal hernia and then did a biopsy of the GE junction. Pushed the scope back into the stomach, suctioned all the air out of the stomach. At this point pulled the scope up the esophagus and out the mouth. Switched camera, switched gloves, went down below and started the colonoscopy. Pushed all the way to about 150 cm and pushed into the cecum, took a picture of appendiceal orifice and noted the ileocecal valve. I found a polyp in the ascending colon on the way in and removed it with a hot biopsy. I also saw an ulcer, took a picture of it and then did another biopsy. From the cecum I slowly withdrew the scope insufflating to look circumferentially at the hendrickson up the ascending colon to the hepatic flexure, then down the transverse colon, splenic flexure, into the descending colon down in the sigmoid and then into the rectal vault and retroflexed the scope. Took picture of the internal hemorrhoids. The patient tolerated the procedure and she recovered in the endoscopy suite. Recommended for repeat colonoscopy in 5 years Anesthesia Type IV sedation by CLAIM TAKER Estimated Blood Loss Estimated blood loss (mL): scant Specimens/Packing Specimens Removed antral bx GE jxn bx Asc colon polyp Asc colon ulcer NAOMI BOGGS DO August 06, 2022 09:58
--- NOTE | 2022-08-06 10:00 | Endoscopy Discharge Instruct ---
Endo Procedure/Findings Findings 1.: Gastritis 2.: Hiatal Hernia 3.: Polyp 4.: Internal Hemorrhoids, Other Findings (Ascending colon ulcer) Discharge Instructions - Activity: You might feel a little sleepy until tomorrow. This is due to the medicine you received to relax you. Until tomorrow, you should: NOT drive a car, operate machinery or power tools. NOT drink any alcoholic beverages. NOT make any important decisions or sign importortant papers. Do not return to work until tomorrow, unless otherwise instructed. Resume previous activities tomorrow. Diet: Start by taking liquids. If you tolerate liquids, advance to solid food. 1.: EGD in 3 years 2.: Colonscopy in 5 years Notify Physician - If you experience excessive bleeding, unusual abdominal pain, fever, or chest pain, contact your doctor immediately. Follow-Up: Other Follow up in my office in one week NAOMI BOGGS DO August 06, 2022 10:00
[2022-08-06 10:02] VITALS: BP 167/82
[2022-08-06 10:05] VITALS: BP 170/80
[2022-08-06 10:15] VITALS: BP 170/80
--- NOTE | 2022-08-06 12:35 | Anesthesia-General Post-Op ---
MAC Patient Condition Mental Status/LOC: Same as Preop Cardiovascular: Satisfactory Nausea/Vomiting: Absent Respiratory: Satisfactory Pain: Controlled Complications: Absent Post Op Complications Complications None Follow Up Care/Instructions Patient Instructions None needed. Anesthesiology Discharge Order Discharge Order Patient is doing well, no complaints, stable vital signs, no apparent adverse anesthesia problems. No complications reported per nursing. DANO HEMPHILL CRNA August 06, 2022 12:35
== END 2022-08-06 10:30 | disposition home or self-care (01) ==
LOC: ENDO 07:48
PROVIDERS: ATTEND Surgery
DX: Z12.11 Encounter for screening for malignant neoplasm of colon (principal); D12.2 Benign neoplasm of ascending colon; K52.9 Noninfective gastroenteritis and colitis, unspecified; K31.89 Other diseases of stomach and duodenum; K29.50 Unspecified chronic gastritis without bleeding; K44.9 Diaphragmatic hernia without obstruction or gangrene; K21.00 Gastro-esophageal reflux disease with esophagitis, without bleeding; K64.8 Other hemorrhoids; Z87.891 Personal history of nicotine dependence; E66.01 Morbid (severe) obesity due to excess calories; Z68.42 Body mass index [BMI] 45.0-49.9, adult; R07.9 Chest pain, unspecified

== ENCOUNTER → 2022-08-07 | Outpatient (CLI) | payer BC, OTHER ==
[~2022-08-07] MED LIST changes: +CATHETER FLUSH 10 ML SYR IVP PRN; +REGADENOSON 0.4 MG/5 ML SYR (LEXISCAN) IV ONE
[2022-08-07 13:11] VITALS: BP 135/65
--- NOTE | 2022-08-09 01:48 | STRESS TEST ---
DATE OF SERVICE: 08/07/2022 RESTING AND POST REGADENOSON TECHNETIUM-99M TETROFOSMIN SPECT CT IMAGING ORDERING PHYSICIAN: Dr. Tony Zamora. PRIMARY PHYSICIAN: Dr. Manzo. CLINICAL DIAGNOSIS: Chest discomfort. Baseline images were carried out after injection of 10.94 mCi technetium-99m tetrofosmin. This was followed by 0.4 mg regadenoson and 32.1 mCi of technetium-99m tetrofosmin for stress imaging. The electrocardiogram showed sinus rhythm at baseline. It did not change significantly with regadenoson infusion. The patient noted some shortness of breath following regadenoson infusion, which resolved in a few minutes. Review of images at rest and following stress indicates a small anterior perfusion defect that appears transient. Gated images show normal global left ventricular systolic function with normal regional wall motion. Left ventricular ejection fraction is calculated to be 81%. CONCLUSIONS: 1. The study is suggestive of a small amount of anteroseptal ischemia (SDS6). 2. Normal regional wall motion. 3. Normal to hyperdynamic left ventricular systolic function with a calculated ejection fraction of 81%. Job ID: [id number] DocumentID: [id number] Dictated Date: 08/08/2022 17:26:27 Family Practitioner Date: 08/08/2022 19:26:00 Dictated By: CHRISTINA KUHN MD; GURJIT; FACP; FACC;
== END ==
LOC: CARD 11:33
PROVIDERS: ATTEND Pediatrics
DX: R07.9 Chest pain, unspecified (principal)
CPT/HCPCS: 78452; 93017; A9502

== ENCOUNTER 2022-08-14 10:26 | Day surgery (SDC) | payer BC, OTHER ==
[2022-08-14] VITALS (8 sets, daily range): BP systolic 99–130; BP diastolic 57–76
[~2022-08-14] VITALS: Ht 160 cm; Wt 116.7 kg
[~2022-08-14 10:26] MED LIST changes: -CATHETER FLUSH 10 ML SYR IVP PRN; -REGADENOSON 0.4 MG/5 ML SYR (LEXISCAN) IV ONE
[2022-08-14] MEDS ORDERED: HEParin (CATH LAB) 2,000 ML IV ONE (10:37)
[2022-08-14] MEDS ORDERED: NS IV 1000 ML 1,000 ML ONE (10:37)
[2022-08-14] MEDS ORDERED: LIDOCAINE 1% INJ 20 ML VIAL ONE (10:37)
[2022-08-14] MEDS ORDERED: NS IV 1000 ML 1,000 ML IV SCH ×2 (10:45→17:30)
[2022-08-14 11:08] LABS: HEMATOCRIT 40 % (35-52); HEMOGLOBIN 12.9 g/dL (11.5-16.0); MEAN CORPUSCULAR HEMOGLOBIN 29 pg (25-34); MEAN CORPUSCULAR HGB CONC 32 g/dL (32-36); MEAN CORPUSCULAR VOLUME 90 fL (80-99); MEAN PLATELET VOLUME 9.9 fL (9.0-12.2); PLATELET COUNT 292 10^3/uL (130-400); WHITE BLOOD COUNT 5.5 10^3/uL (4.3-11.0)
[2022-08-14 11:24] LABS: INR 0.9 (0.8-1.4); PROTHROMBIN TIME PATIENT 12.6 SEC (12.2-14.7)
[2022-08-14 11:31] LABS: ALBUMIN 4.2 GM/DL (3.2-4.5); BILIRUBIN,TOTAL 0.4 MG/DL (0.1-1.0); CALCIUM 9.3 MG/DL (8.5-10.1); CREATININE SERUM 0.95 MG/DL (0.60-1.30); POTASSIUM 3.7 MMOL/L (3.6-5.0); TOTAL PROTEIN 7.3 GM/DL (6.4-8.2)
[2022-08-14] MEDS ORDERED: VERAPAMIL 5 MG/2 ML (CALAN) VIAL IV ONE (16:12)
[2022-08-14] MEDS ORDERED: fentaNYL INJ 100 MCG/2 ML AMP ONE (16:12)
[2022-08-14] MEDS ORDERED: NITRO DRIP 25000 MCG/D5W 250 ML IV ONE (16:12)
[2022-08-14] MEDS ORDERED: MIDAZOLAM 5 MG/5 ML (VERSED) VIAL ONE (16:12)
[2022-08-14] MEDS ORDERED: HEParin 1000 UNIT/ML (10ML VIAL) FOR BOLUS ONE (16:12)
--- NOTE | 2022-08-14 17:16 | Cardiac Procedure Note-CS/ASA ---
Pre-Procedure Note Pre-Op Procedure Note Date of Available H&P: July 18, 2022 Date H&P Reviewed: August 14, 2022 Time H&P Reviewed: 16:45 History & Physical: H&P Reviewed Changes from last HP MPI on 08/07/22/ was suggestive of anteroseptal ischemia Moderate Sedation PreProcedure ASA Score 3 Airway Lungs Heart ASA score ASA 1: a normal healthy patient ASA 2: a patient with a mild systemic disease (mid diabetes, controlled hypertension, obesity ASA 3: a patient with a severe systemic disease that limits activity (angina, COPD, prior Myocardial infarction) ASA 4: a patient with an incapacitating disease that is a constant threat to life (CHF, renal failure) ASA 5: a moribund patient not expected to survive 24 hrs. (ruptured aneurysm) ASA 6: a declared brain- patient whose organs are being harvested. For emergent operations, add the letter E after the classification Mallampati Classification Grade 2 Sedation Plan Analgesia, Amnesia, Plan communicated to team members The patient is an appropriate candidate to undergo the planned procedure, sedation, and anesthesia. The patient immediately re-assessed prior to indication. CHRISTINA KUHN MD FACP [facility] August 14, 2022 17:16
--- NOTE | 2022-08-14 17:18 | Discharge Inst-Cardiology ---
Discharge Inst-Cardiac Discharge Medications Continued Medications: Amlodipine Besylate (Amlodipine Besylate) 10 Mg Tablet 10 MG PO HS, #30 Atorvastatin Calcium (Atorvastatin Calcium) 10 Mg Tablet 10 MG PO HS, #30 Cetirizine HCl (Zyrtec) 10 Mg Capsule 10 MG PO DAILY, CAP Cholecalciferol (Vitamin D3) (Vitamin D3) 1,000 Unit Capsule 1000 UNIT PO DAILY, CAP Duloxetine HCl (Duloxetine HCl) 60 Mg Capsule.dr 120 MG PO DAILY, CAP Gabapentin (Gabapentin) 300 Mg/6 Ml (6 Ml) Solution 900 MG PO TID, EA Losartan/Hydrochlorothiazide (Losartan-Hctz 100-25 mg Tab) 1 Each Tablet 1 EACH PO DAILY, TAB Metoprolol Succinate (Metoprolol Succinate) 50 Mg Tab.er.24h 50 MG PO HS, TAB Omeprazole (Omeprazole) 20 Mg Tablet.dr 40 MG PO DAILY, TAB take 2 (20mg) tabs Oxybutynin Chloride (Oxybutynin Chloride) 5 Mg Tablet 5 MG PO DAILY, TAB Ropinirole HCl (Ropinirole HCl) 0.5 Mg Tablet 0.5 MG PO BID, TAB CHRISTINA KUHN MD FACP [facility]AC [facility] August 14, 2022 17:18
--- NOTE | 2022-08-14 17:18 | Discharge Inst-Post CATH ---
Discharge Inst-CATH/EP Post Cardiac Cath/EP D/C Inst Follow Up/Plan F/u with Dr Garica in one month ACTIVITY * Go Home directly and rest. * Limit activity of the leg (or wrist if it was used) for 7 days including aerobics, swimming, jogging, bicycling, etc. * Restrict stair-climbing for 7 days if possible, if not, climb up with your non-cath leg, then bring together on the same step. * Avoid lifting, pushing, pulling or excessive movement of the affected extremity for 7 days. * Customary sexual activity may be resumed after 2 days-use caution not to use a position that strains or causes pain to the affected extremity. * No driving for 24 hours. * NO SMOKING. * Avoid straining for bowel movements for 7 days. * Gentle walking on level ground is allowed. * Returning to work will depend on the type of procedure and the results. Your doctor will discuss this with you. CALL YOUR DOCTOR FOR ANY OF THE FOLLOWING: *If bleeding from the puncture site occurs- Apply gentle pressure to site with clean cloth and call your doctor or EMS. * If a knot or lump forms under the skin, increases in size, or causes pain. * If bruising appears to be worsening or moving further down your leg instead of disappearing. * Temperature above 101 F. CARE OF YOUR GROIN INCISION; * Bruising or purple discoloration of the skin near the puncture site is common. * You may shower only, no bathtub bathing for 5 days. Be careful to avoid slipping as your leg may feel stiff. * If a closure device was used on your femoral artery, please see the attached guide regarding care of the device and your leg. * Leave dressing on FOR 24 hours. CARE OF YOUR WRIST INCISION; * Bruising or purple discoloration of the skin near the puncture site is common. * You may shower. * DO NOT submerge wrist. * Leave dressing on FOR 24 hours. CHRISTINA GARCIA MD [facility] August 14, 2022 17:18
[2022-08-14] MEDS ORDERED: PATIENT MAY USE OWN MEDS, ALL PO SCH (17:30)
--- NOTE | 2022-08-14 18:17 | Cardiac Cath Report ---
CARDIAC CATHETERIZATION DATE OF PROCEDURE: 08-14-22 INDICATION: Chest pain, abn stress test HISTORY: The patient is a 61 year old female with chest pain and MPI of 08/07/22 suggesting anteroseptal ischemia with SDS 6/ PROCEDURES PERFORMED: 1. Cor angio; 2. LHC PROCEDURE DESCRIPTION: After informed consent and in the fasting state, left heart catheterization was performed through the R radial artery utilizing a [] [place] system by percutaneous approach. 6F TIG for R and L cors; 5F pigtail for LHC. All catheters were exchanged over a guidewire. LV ANGIO DIAZ projection showed no wall motion abnormality and LVEF approx 60% HEMODYNAMICS: LVEDP 31 mmHg; no significant pressure gradient on pullback across the aortic valve CORONARY ANGIOGRAPHY: Left main coronary artery: Ok Left anterior descending coronary artery: Ok Left circumflex coronary artery: Ok Right coronary artery: Dominant, ok IMPRESSION: 1. No angiographically significant CAD 2. LVEDP 31 mmHg 3. LVEF 60% PLAN Med therapy Treat hypertension and sleep apnea (pt advised) Advised w/u with pcp for non-coronary causes of chest discomfort CHRISTINA KUHN MD FACP [facility] August 14, 2022 18:17
== END 2022-08-14 19:45 | disposition home or self-care (01) ==
LOC: CATH 10:26 → CSD 17:25 → CATH 19:45
PROVIDERS: ATTEND Internal Medicine Cardiovascular Disease
DX: R07.89 Other chest pain (principal); R94.39 Abnormal result of other cardiovascular function study; I10 Essential (primary) hypertension; G47.33 Obstructive sleep apnea (adult) (pediatric); R73.03 Prediabetes; E78.5 Hyperlipidemia, unspecified; R06.09 Other forms of dyspnea; Z87.891 Personal history of nicotine dependence; Z82.49 Family history of ischemic heart disease and other diseases of the circulatory system
CPT/HCPCS: 80053; 80061; 85027; 85610; 85730; 87081; 93458; C1769; C1894; 36415; 93005